=== PATIENT | male | born 1970 | race Two or more races ===

== ENCOUNTER → 2021-06-30 08:26 | Outpatient (BNVA) | payer MEDICAID, SELFPAY | PROVIDERS: PCP Internal Medicine; Referring Provider Internal Medicine; Visit Provider Physician Assistant | DX: Z12.11 Encounter for screening for malignant neoplasm of colon (principal); K21.9 Gastro-esophageal reflux disease without esophagitis | CPT/HCPCS: 99202 ==

== ENCOUNTER 2023-05-15 09:30 | Outpatient (REF) | payer MEDICAID, SELFPAY ==
[2023-05-15 14:37] LABS: MANUAL DIFF FLAG NO
[2023-05-15 14:43] LABS: Basophils Percent Auto 0.7 % (0-2); Eosinophils Absolute Auto 0.1 X10*3/uL (0.0-0.4); Eosinophils Percent Auto 2.2 % (0-4); Hematocrit 44.7 % (42.0-52.0); Hemoglobin 14.1 g/dl (14.0-18.0); Imm Gran Abs Auto 0.02 X10*3/uL (0.00-0.03); Imm Gran Pct Auto 0.3 % (0.0-0.4); Lymphocytes Absolute Auto 1.3 X10*3/uL (1.2-4.9); Lymphocytes Percent Auto 21.7 % (20-40); Mean Corpuscular HGB Conc 31.5 g/dl (31.0-36.0); Mean Corpuscular Hemoglobin 25.5 pg (27.0-33.0); Mean Corpuscular Volume 80.8 fL (80.0-98.0); Monocytes Absolute Auto 0.5 X10*3/uL (0.1-1.2); Monocytes Percent Auto 8.7 % (2-11); Neutrophils Percent Auto 66.4 % (45-73); Platelet Count 203 X10*3/uL (160-400); Red Blood Count 5.53 X10*6/uL (4.60-5.80); Red Cell Distribution Width 13.7 % (11.0-16.0)
[2023-05-15 15:22] LABS: Erythrocyte Sedimentation Rate 7 MM/HR (0-15)
[2023-05-15 16:11] LABS: Alanine Aminotransferase 46 U/L (0-40); Albumin Level 4.5 g/dL (3.5-5.0); Alkaline Phosphatase 86 U/L (39-117); Anion Gap 12 (12-20); Aspartate Amino Transferase 23 U/L (5-37); Bilirubin Total 0.9 mg/dL (0.0-1.0); Blood Urea Nitrogen 9 mg/dL (9-16); C Reactive Protein 0.25 mg/dL (< or = 0.50); Calcium 9.7 mg/dL (8.4-10.2); Carbon Dioxide 27 mmol/L (22-29); Chloride 105 mmol/L (96-108); Cholesterol 121 mg/dL (<200); Estimated Glomerular Filt Rate > 60; Glucose Fasting 94 mg/dL (60-99); HDL Cholesterol 38 mg/dL (>40); LDL Cholesterol Calculated 64 mg/dL (<100); Potassium 4.1 mmol/L (3.3-5.1); Sodium 140 mmol/L (135-145); Total Protein 7.3 g/dL (6.5-8.0); Triglycerides 98 mg/dL (<150)
[2023-05-15 16:20] LABS: TSH reflex Free T4 1.25 uIU/mL (0.32-4.0)
[2023-05-15 19:27] LABS: Rheumatoid Factor < 13.0 IU/mL (<15.0)
[2023-05-15 19:41] LABS: Prostate Specific Antigen 3.95 ng/mL (<0.05-4.0)
[2023-05-16 08:29] LABS: ~HepC Num1 0.09 S/CO (0.00-0.79); ~Hepatitis C Antibody Nonreactive (Nonreactive)
[2023-05-17 00:53] LABS: Lyme Abs Screen <0.90 index
[2023-05-17 13:33] LABS: Anti DNA DS Antibody <1 IU/mL
[2023-05-17 15:14] LABS: Immunoglobulin G 1018 mg/dL (600-1640)
[2023-05-18 11:37] LABS: Cyclic Citrullinated Peptide <16 UNITS
[2023-05-18 15:57] LABS: HIV RNA PCR Qn Copies Not Detected Copies/mL; HIV RNA PCR Qn Log Copies Not Detected Log cps/mL
== END 2023-05-15 09:31 | disposition home or self-care (01) ==
LOC: HO.CHCLDS 09:30
PROVIDERS: Visit Provider Internal Medicine
DX: M25.40 Effusion, unspecified joint (principal); I10 Essential (primary) hypertension
CPT/HCPCS: 80053; 80061; 82784; 84153; 84443; 85025; 85652; 86140; 86200; 86225; 86431; 86617; 86618; 86803; 87536; 87900

== ENCOUNTER 2023-05-16 11:30 | Outpatient (REF) | payer MEDICAID, SELFPAY ==
[2023-05-16 17:53] LABS: CT PCR NOT DETECTED (Not Detect.); NG PCR NOT DETECTED (Not Detect.)
== END 2023-05-16 11:31 | disposition home or self-care (01) ==
LOC: HO.CHCLNP 11:30
PROVIDERS: Visit Provider Internal Medicine
DX: M25.40 Effusion, unspecified joint (principal); Z20.822 Contact with and (suspected) exposure to COVID-19
CPT/HCPCS: 0353U

== ENCOUNTER 2023-09-12 15:13 | Outpatient (AMB) | payer MEDICAID, SELFPAY ==
--- NOTE | 2023-09-12 15:30 | A.OFFVIS_ITS ---
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 The patient denies daytime urinary frequency, nocturia, hematuria, dysuria, or feeling of incomplete bladder emptying, or history of kidney stones. I have reviewed chart, PSA 05/09/23--3.95 ng/mL. I have discussed PSA is a blood test, prostate specific antigen and is an enzyme secreted by the prostate gland. Elevated PSA may be due to multiple conditions including prostate inflammatory condition, enlarged prostate or prostate cancer. Plan: Repeat PSA. [facility] Social History (Updated 06/30/21 @ 09:03 by Hilary Cueto PA-C) Household Members Other:: lives alone Alcohol intake: never Patient Tobacco Use Status: Never used Tobacco Current occupational status: unemployed Current occupation: Research Questionnaire AUA Symptom Score AUA Incomplete emptying - It does not feel like I empty my bladder all the way.: 1 - Less than 1 time in 5 Frequency - I have to go again less than two hours after I finish urinating.: 2 - Less than half the time Intermittency - I stop and start again several times when I urinate.: 0 - Not at all Urgency - It is hard to wait when I have to urinate.: 0 - Not at all Weak stream - I have a weak urinary stream.: 0 - Not at all Straining - I have to push or strain to begin urination.: 0 - Not at all Nocturia - I get up to urinate after I go to bed until the time I get up in the morning.: 1 time AUA Symptom Score: 4 Quality of life due to urinary symptoms: If you were to spend the rest of your life with your urinary condition the way it is now, how would you feel about that?: Mostly Satisfied Source: Maurizio WHEAT, Liberty BACA Jr, O'Prosper MP, et al, and the Measurement Committee of the [place] [employer]. The [place] [employer] symptom index for benign prostatic hyperplasia. J Urol. 1992; 148: 4979-6777. Copyright 1992 [place] [employer] Review of Systems Const All systems reviewed & are unremarkable except as noted in HPI and below Reports no additional complaints Eyes Reports no additional complaints ENT Reports no additional complaints Card Denies dyspnea Resp Denies cough and Denies dyspnea GI Reports no additional complaints Musc Reports no additional complaints Skin/Breast Denies rash and Denies unusual bruising Neuro Reports no additional complaints Psych Reports no additional complaints Endo Reports no additional complaints Hakeem/Lymph Reports no additional complaints Aller/Immun Reports no additional complaints Physical Exam Const General: healthy appearing, no acute distress and well developed Orientation/consciousness: patient oriented x3 HEENT Head: Yes normocephalic and Yes atraumatic Eyes Conjunctivae: conjunctivae normal Neck Neck: Yes normal visual inspection Chest Chest palpation & inspection: normal inspection of the chest Resp Effort & Inspection: normal respiratory effort Cardio Rate: regular rate GI Inspection: Yes normal to inspection Palpation (GI): Soft to palpation Skin General skin exam: no rashes or lesions noted Neuro General: patient oriented x3 Extrem General: No pedal edema Psych Appearance: grossly normal Affect: normal affect Results AMB Urinalysis, Automated UA Leukoctes 0 Re/uL Last Edit by ROMINA Burk on 09/12/23 15:58 UA Nitrite Negative Last Edit by ROMINA Burk on 09/12/23 15:58 UA Urobilinogen 0.2 mg/dL Last Edit by ROMINA Burk on 09/12/23 15:5 8 UA Protein 0 mg/dL Last Edit by ROMINA Burk on 09/12/23 15:58 UA pH 6.5 Last Edit by ROMINA Burk on 09/12/23 15:58 UA Blood 0 Kenny/uL Last Edit by ROMINA Burk on 09/12/23 15:58 UA Specific [place] 1.005 Last Edit by ROMINA Burk on 09/12/23 15: 58 UA Ketone Negative Last Edit by ROMINA Burk on 09/12/23 15:58 UA Bilirubin 0 mg/dL Last Edit by ROMINA Burk on 09/12/23 15:58 UA Glucose 0 mg/dL Last Edit by ROMINA Burk on 09/12/23 15:58 Results Reviewed Results Reviewed: Laboratory Last Values Urine pH (Auto) 6.5 09/12/23 15:57 Specific [place] (Auto) 1.005 09/12/23 15:57 Urine Protein (Auto) 0 mg/dL 09/12/23 15:57 Glucose (UA)(Auto) 0 mg/dL 09/12/23 15:57 Urine Ketones (Auto) Negative 09/12/23 15:57 Urine Blood (Auto) 0 Kenny/uL 09/12/23 15:57 Urine Nitrite (Auto) Negative 09/12/23 15:57 Urine Bilirubin (Auto) 0 mg/dL 09/12/23 15:57 Urine Urobilinogen (Auto) 0.2 mg/dL 09/12/23 15:57 Leukocyte Esterase (Auto) 0 Re/uL 09/12/23 15:57 Assessment & Plan Assessment & Plan (1) Elevated PSA: Code(s): R97.20 - Elevated prostate specific antigen [PSA] Plan Repeat PSA. Orders: Orders AMB Urinalysis Automated 09/12/23 Z13.9 - Encounter for screening, unspecified PSA,Total (Free>4and<10) 1 Month R97.20 - Elevated prostate specific antigen [PSA] Patient Instructions: The patient had an opportunity to ask questions regarding treatment plan. All questions were answered. Laboratory studies and physical exam results were discussed and reviewed in detail. No major barriers to understanding were identified. The patient expressed understanding and agreement with the above treatment plan. The patient is aware they should contact our office by phone for worsening of their current condition or the appearance of new symptoms. Compliance is encouraged with any medications and followup testing that is ordered. It is a privilege to be allowed the opportunity to participate in the urologic care of your patient. If you have any questions or concerns regarding treatment for the above conditions please do not hesitate to contact me. The office telephone contact is [phone]. This note is constructed in part using voice recognition software. While every effort has been made to ensure accuracy patternmaker hand errors may have been included. Yours sincerely, Mariana Bazan MD Quality Reporting (2019) Benign Prostatic Hyperplasia ([facility] 771) AUA symptom score: 4 Quality of life due to urinary symptoms: If you were to spend the rest of your life with your urinary condition the way it is now, how would you feel about that?: Mostly Satisfied Coding Level of Care Code New Pt Level 3 (65761) Diagnoses Elevated PSA R97.20
== END 2023-09-12 16:02 | disposition home or self-care (01) ==
PROVIDERS: PCP Internal Medicine; Visit Provider Urology
DX: R97.20 Elevated prostate specific antigen [PSA] (principal)
CPT/HCPCS: 99203

== ENCOUNTER → 2023-09-12 15:13 | Outpatient (BNVA) | payer MEDICAID, SELFPAY | PROVIDERS: PCP Internal Medicine; Visit Provider Urology | DX: R97.20 Elevated prostate specific antigen [PSA] (principal) | CPT/HCPCS: 81003; 99202 ==

== ENCOUNTER 2023-10-15 10:23 | Outpatient (REF) | payer MEDICAID, SELFPAY ==
[2023-10-15 15:59] LABS: PSA,Total (Free>4and<10) 2.22 ng/mL (0.00-4.00)
== END 2023-10-15 10:24 | disposition home or self-care (01) ==
LOC: HO.CHCLDS 10:23
PROVIDERS: Visit Provider Urology
DX: Z12.5 Encounter for screening for malignant neoplasm of prostate (principal); R97.20 Elevated prostate specific antigen [PSA]
CPT/HCPCS: 36415; 84153

== ENCOUNTER 2023-10-24 14:02 | Outpatient (AMB) | payer MEDICAID, SELFPAY ==
--- NOTE | 2023-10-24 14:37 | A.OFFVIS_ITS ---
Intake Intake Visit Reasons: 6 weeks f/up/PSA Intake Note: Patient presents today for a follow-up and PSA results: Total PSA 2.22 ng/ml, 10/15/2023. 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 Accompanied by: Self / Same As Patient Allergies house dust Allergy (Mild, Verified 11/15/23 13:53) unknown pollen extracts Allergy (Mild, Verified 11/15/23 13:53) unknown Medication List - Last Reviewed 10/24/23 by ROMINA Burk albuterol sulfate 90 mcg/actuation (ProAir HFA) 2 puffs inhalation Q4-6H PRN atenolol 50 mg PO DAILY atorvastatin 10 mg PO DAILY bisacodyl (Dulcolax (bisacodyl)) 10 mg (2 x 5 mg) PO ONCE 1 day fexofenadine (Tonia Allergy) 180 mg PO DAILY finasteride (Proscar) 5 mg PO DAILY 90 days fluticasone propionate 220 mcg/actuation (Flovent HFA) 1 puff inhalation BID hydrochlorothiazide 25 mg PO DAILY hydrochlorothiazide 12.5 mg PO DAILY lisinopril 10 mg PO DAILY montelukast 10 mg PO QPM omeprazole 20 mg PO QAM polyethylene glycol 3350 (Miralax) 238 grams PO ONCE 1 day HPI HPI Comments History of Present Illness Details Raul is a 53 year old male who is here for evaluation for PSA. He is here today with repeat PSA to discuss results. PSA was drawn on 10/15/2023--results 2.22 ng/mL. The patient states that his primary care physician started him on finasteride. He states he has noticed improvement in urinary flow since being on the finasteride and he gets up less at night. I will continue the finasteride prescription. Review of chart: PSA 05/09/23--3.95 ng/mL. 09/12/23-- prostate exam- enlarged, smoo th, no suspicious nodules palpated 10/24/23--Plan: Ultrasound retroperitoneum, prostate measurement requested. Telehealth to discuss ultrasound results. I will continue to prescribe the finasteride for now. Monitor PSA. Repeat in 6 months - FU post. [facility] Medical History Hypercholesteremia Joint swelling Hypertension Surgical History No pertinent past surgical history Family History Father No problems noted. Mother No problems noted. 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 All systems reviewed & are unremarkable except as noted in HPI and below Reports no additional complaints Eyes Reports no additional complaints ENT Reports no additional complaints Card Denies dyspnea Resp Denies cough and Denies dyspnea GI Reports no additional complaints Musc Reports no additional complaints Skin/Breast Denies rash and Denies unusual bruising Neuro Reports no additional complaints Psych Reports no additional complaints Endo Reports no additional complaints Hakeem/Lymph Reports no additional complaints Aller/Immun Reports no additional complaints Results AMB Urinalysis, Automated UA Leukoctes 70 Re/uL Last Edit by ROMINA Burk on 10/24/23 14:50 1+ Vanita David 10/24/23 14:50 UA Nitrite Negative Last Edit by ROMINA Burk on 10/24/23 14:50 UA Urobilinogen 0.2 mg/dL Last Edit by ROMINA Burk on 10/24/23 14:5 0 UA Protein 0 mg/dL Last Edit by ROMINA Burk on 10/24/23 14:50 UA pH 6.5 Last Edit by ROMINA Burk on 10/24/23 14:50 UA Blood 0 Kenny/uL Last Edit by ROMINA Burk on 10/24/23 14:50 UA Specific [place] 1.010 Last Edit by ROMINA Burk on 10/24/23 14: 50 UA Ketone Negative Last Edit by ROMINA Burk on 10/24/23 14:50 UA Bilirubin 0 mg/dL Last Edit by ROMINA Burk on 10/24/23 14:50 UA Glucose 0 mg/dL Last Edit by ROMINA Burk on 10/24/23 14:50 Results Reviewed Results Reviewed: Laboratory Last Values Urine pH (Auto) 6.5 10/24/23 14:48 Specific [place] (Auto) 1.010 10/24/23 14:48 Urine Protein (Auto) 0 mg/dL 10/24/23 14:48 Glucose (UA)(Auto) 0 mg/dL 10/24/23 14:48 Urine Ketones (Auto) Negative 10/24/23 14:48 Urine Blood (Auto) 0 Kenny/uL 10/24/23 14:48 Urine Nitrite (Auto) Negative 10/24/23 14:48 Urine Bilirubin (Auto) 0 mg/dL 10/24/23 14:48 Urine Urobilinogen (Auto) 0.2 mg/dL 10/24/23 14:48 Leukocyte Esterase (Auto) 70 Re/uL 10/24/23 14:48 Assessment & Plan Assessment & Plan (1) BPH loc w urin obs/LUTS: Code(s): N40.1 - Benign prostatic hyperplasia with lower urinary tract symptoms (2) Elevated PSA: Code(s): R97.20 - Elevated prostate specific antigen [PSA] Plan Ultrasound retroperitoneum, prostate measurement requested. Telehealth to discuss ultrasound results. I will continue to prescribe the finasteride for now. Monitor PSA. Repeat in 6 months - FU post. Orders: Orders AMB Urinalysis Automated 10/24/23 Z13.9 - Encounter for screening, unspecified US retroperitoneal comp 1 Month N40.1 - Benign prostatic hyperplasia with lower urinary tract symptoms, R97.20 - Elevated prostate specific antigen [PSA] PSA,Total (Free>4and<10) 6 Months N40.1 - Benign prostatic hyperplasia with lower urinary tract symptoms, R97.20 - Elevated prostate specific antigen [PSA] Medications: New finasteride (Proscar) 5 mg PO DAILY 90 tabs 3RF 90 days C61 - Malignant neoplasm of prostate atorvastatin 10 mg PO DAILY Patient Instructions: The patient had an opportunity to ask questions regarding treatment plan. All questions were answered. Laboratory studies and physical exam results were discussed and reviewed in detail. No major barriers to understanding were identified. The patient expressed understanding and agreement with the above treatment plan. The patient is aware they should contact our office by phone for worsening of their current condition or the appearance of new symptoms. Compliance is encouraged with any medications and followup testing that is ordered. It is a privilege to be allowed the opportunity to participate in the urologic care of your patient. If you have any questions or concerns regarding treatment for the above conditions please do not hesitate to contact me. The office telephone contact is [phone]. This note is constructed in part using voice recognition software. While every effort has been made to ensure accuracy telephone sales agent errors may have been included. Yours sincerely, Mariana Bazan MD Coding Level of Care Code Est Pt Level 4 (69644) Diagnoses BPH loc w urin obs/LUTS N40.1 Elevated PSA R97.20
== END 2023-10-24 15:16 | disposition home or self-care (01) ==
PROVIDERS: PCP Internal Medicine; Visit Provider Urology
DX: N40.1 Benign prostatic hyperplasia with lower urinary tract symptoms (principal); R97.20 Elevated prostate specific antigen [PSA]
CPT/HCPCS: 99214

== ENCOUNTER → 2023-10-24 14:02 | Outpatient (BNVA) | payer MEDICAID, SELFPAY | PROVIDERS: PCP Internal Medicine; Visit Provider Urology | DX: N40.1 Benign prostatic hyperplasia with lower urinary tract symptoms (principal); R97.20 Elevated prostate specific antigen [PSA] | CPT/HCPCS: 81003; 99212 ==

== ENCOUNTER 2023-11-13 15:13 | Outpatient (REF) | payer MEDICAID, SELFPAY ==
--- NOTE | ~2023-11-13 | US_ITS ---
EXAMINATION: US RETROPERITONEAL COMPLETE (RENAL) CLINICAL INFORMATION: Benign prostatic hyperplasia with lower urinary tract symptoms. Please measure prostate. COMPARISON: None available. TECHNIQUE: Real-time imaging of the kidneys and bladder. FINDINGS: RIGHT KIDNEY: 12.5 x 6.5 x 6.6 cm (SAG x AP x TRV). The kidney is normal in size, contour, and echogenicity. Renal cortical thickness is normal. No renal calculi or hydronephrosis. 1.9 cm septated and calcified cyst in the upper pole. LEFT KIDNEY: 13.2 x 6.8 x 6.0 cm (SAG x AP x TRV). The kidney is normal in size, contour, and echogenicity. Renal cortical thickness is normal. No calculi or focal parenchymal lesions. No hydronephrosis. BLADDER: Well distended and normal. Bilateral ureteral jets are demonstrated. Prevoid bladder volume is 703 mL. Postvoid bladder volume is 23 mL. Prostate volume 22 mL. US/US retroperitoneal comp IMPRESSION: 1.9 cm cyst with calcified septations in the upper pole of the right kidney. Further evaluation with CT or MR abdomen without and with contrast renal mass protocol is recommended for further evaluation. Large capacity bladder of 700 mL. No hydronephrosis. Prostate volume 22 mL.
== END 2023-11-13 15:14 | disposition home or self-care (01) ==
LOC: HO.HMGCX 15:13
PROVIDERS: PCP Internal Medicine; Visit Provider Urology
DX: N40.1 Benign prostatic hyperplasia with lower urinary tract symptoms (principal); R97.20 Elevated prostate specific antigen [PSA]
CPT/HCPCS: 76770

== ENCOUNTER 2023-11-15 13:46 | Outpatient (AMB) | payer MEDICAID, SELFPAY ==
--- NOTE | 2023-11-15 13:49 | MHC.OFFVIS ---
Intake Vital Signs 11/15/23 13:53 Height 5 ft 11 in Weight 235 lb 14.314 oz BMI 32.9 BP 138/75 Blood Pressure Location Lt brachial Position Sitting Pulse 75 Intake Visit Reasons: Colonoscopy Screening Intake Note: Raul presents in the office as a new patient colonoscopy screening. CC: He states that he is not having any concerns at this time he just is over due. 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 Allergies house dust Allergy (Mild, Verified 11/15/23 13:53) unknown pollen extracts Allergy (Mild, Verified 11/15/23 13:53) unknown Medication List - Last Reconciled 11/15/23 by Hilary Cueto PA-C albuterol sulfate 90 mcg/actuation (ProAir HFA) 2 puffs inhalation Q4-6H PRN atenolol 50 mg PO DAILY atorvastatin 10 mg PO DAILY fexofenadine (Tonia Allergy) 180 mg PO DAILY finasteride (Proscar) 5 mg PO DAILY 90 days fluticasone propionate 220 mcg/actuation (Flovent HFA) 1 puff inhalation BID hydrochlorothiazide 12.5 mg PO DAILY lisinopril 10 mg PO DAILY montelukast 10 mg PO QPM omeprazole 20 mg PO QAM HPI HPI Comments History of Present Illness Details 53-year-old male for screening colonoscopy-seen by me back in 2020 which time was scheduled for an EGD for Mattson's surveillance and colonoscopy Had had difficulty with transportation and had to cancel procedure He has persistent acid reflux is taking omeprazole however on any Will to identify anything specific to assist symptoms His bowels normal he does not have any issue there He has no nausea, vomiting hematemesis, hematochezia fever chills PFSH Medical History Hypercholesteremia Joint swelling Hypertension Surgical History No pertinent past surgical history Family History Father No problems noted. Mother No problems noted. 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 All systems reviewed & are unremarkable except as noted in HPI and below Card Denies chest pain and Denies dyspnea Resp Denies dyspnea GI Denies abdominal pain, Reports heartburn, Denies nausea and Denies vomiting Physical Exam Vital Signs: Last Vital Signs Pulse 75 11/15/23 13:53 BP 138/75 11/15/23 13:53 BMI result Body Mass Index 32.9 Const General: cooperative, healthy appearing, comfortable and no acute distress Orientation/consciousness: patient oriented x3 Limitations: no limitations Eyes Sclerae: sclerae normal Resp Effort & Inspection: normal respiratory effort and able to speak in complete sentences Auscultation: clear to auscultation bilaterally, no rales, no rhonchi and no wheezes Cardio Rate: regular rate Rhythm: regular rhythm Heart sounds: S1 normal heart sound present and S2 normal heart sound present GI Palpation (GI): Soft to palpation and nontender Auscultation: normal bowel sounds Skin General skin exam: no rashes or lesions noted Neuro General: patient oriented x3 Extrem General: Yes full ROM Psych Appearance: grossly normal and well kempt Mental Status: mental status grossly normal Speech and movement: Clear speech present Affect: Labile affect present Attitude: cooperative Thought process: Normal thought process present Thought content: Normal thought content present Results Reviewed Results Reviewed: US/US retroperitoneal comp IMPRESSION: 1.9 cm cyst with calcified septations in the upper pole of the right kidney. Further evaluation with CT or MR abdomen without and with contrast renal mass protocol is recommended for further evaluation. Large capacity bladder of 700 mL. No hydronephrosis. Prostate volume 22 mL. Assessment & Plan Assessment & Plan (1) Acid reflux: Comment: EGD for Mattson's surveillance Code(s): K21.9 - Gastro-esophageal reflux disease without esophagitis Plan: Reflux precautions reviewed (2) Encounter for screening colonoscopy: Comment: Screening colonoscopy-reviewed indications, need for escort rare risks and prep Code(s): Z12.11 - Encounter for screening for malignant neoplasm of colon Plan: Screening colonoscopy MiraLax Gatorade prep Plan EGD/Colace MiraLax Gatorade Orders: Orders EGD/Lindsay Combo - GI Use Only Today K21.9 - Gastro-esophageal reflux disease without esophagitis, Z12.11 - Encounter for screening for malignant neoplasm of colon Medications: New bisacodyl (Dulcolax (bisacodyl)) Day before procedure @ 12 noon Take 4 tablets by mouth followed by large glass of water 20 mg (4 x 5 mg) PO ONCE 1 day PRN 4 tabs 0RF colonoscopy prep Z12.11 - Encounter for screening for malignant neoplasm of colon polyethylene glycol 3350 (Miralax) Take as directed by mouth the day before your procedure. 238 grams PO ONCE 1 day PRN 238 grams 0RF laxative effect Discontinued bisacodyl (Dulcolax (bisacodyl)) Take 2 tablets by mouth at 12:00pm the day before your procedure. Discontinued Reason: Patient no longer taking 10 mg (2 x 5 mg) PO ONCE 1 day 2 tabs 0RF colonoscopy prep Z12.11 - Encounter for screening for malignant neoplasm of colon polyethylene glycol 3350 (Miralax) Take as directed by mouth the day before your procedure. Discontinued Reason: Patient no longer taking 238 grams PO ONCE 1 day 238 grams 0RF Coding Level of Care Code Est Pt Level 3 (44742) Diagnoses Acid reflux K21.9 Encounter for screening colonoscopy Z12.11 Time Spent (min) 25
[2023-11-15 13:53] VITALS: BP 138/75; PULSE 75; BMI 32.9
== END 2023-11-15 14:28 | disposition home or self-care (01) ==
PROVIDERS: PCP Internal Medicine; Referring Provider Internal Medicine; Visit Provider Physician Assistant
DX: K21.9 Gastro-esophageal reflux disease without esophagitis (principal); Z12.11 Encounter for screening for malignant neoplasm of colon
CPT/HCPCS: 99213

== ENCOUNTER → 2023-11-15 13:46 | Outpatient (BNVA) | payer MEDICAID, SELFPAY | PROVIDERS: PCP Internal Medicine; Referring Provider Internal Medicine; Visit Provider Physician Assistant | DX: Z12.11 Encounter for screening for malignant neoplasm of colon (principal); K21.9 Gastro-esophageal reflux disease without esophagitis | CPT/HCPCS: 99212 ==

== ENCOUNTER 2023-11-19 08:58 | Outpatient (REF) | payer MEDICAID, SELFPAY ==
[2023-11-19 14:26] LABS: MANUAL DIFF FLAG NO
[2023-11-19 14:35] LABS: Basophils Percent Auto 0.3 % (0-2); Eosinophils Absolute Auto 0.1 X10*3/uL (0.0-0.4); Eosinophils Percent Auto 2.1 % (0-4); Hematocrit 45.4 % (42.0-52.0); Hemoglobin 14.5 g/dl (14.0-18.0); Imm Gran Abs Auto 0.03 X10*3/uL (0.00-0.03); Imm Gran Pct Auto 0.5 % (0.0-0.4); Lymphocytes Absolute Auto 1.5 X10*3/uL (1.2-4.9); Lymphocytes Percent Auto 22.6 % (20-40); Mean Corpuscular HGB Conc 31.9 g/dl (31.0-36.0); Mean Corpuscular Hemoglobin 25.8 pg (27.0-33.0); Mean Corpuscular Volume 80.8 fL (80.0-98.0); Mean Platelet Volume 9.9 fL (9.4-12.4); Monocytes Absolute Auto 0.7 X10*3/uL (0.1-1.2); Monocytes Percent Auto 10.3 % (2-11); Neutrophils Absolute Auto 4.2 x10*3/uL (2.0-8.3); Neutrophils Percent Auto 64.2 % (45-73); Platelet Count 213 X10*3/uL (160-400); Red Blood Count 5.62 X10*6/uL (4.60-5.80); Red Cell Distribution Width 13.7 % (11.0-16.0); White Blood Count 6.6 X10*3/uL (4.8-10.8)
[2023-11-19 15:32] LABS: Alanine Aminotransferase 38 U/L (0-40); Albumin Level 4.4 g/dL (3.5-5.0); Alkaline Phosphatase 99 U/L (39-117); Anion Gap 14 (12-20); Aspartate Amino Transferase 20 U/L (5-37); Blood Urea Nitrogen 15 mg/dL (9-16); Calcium 9.8 mg/dL (8.4-10.2); Carbon Dioxide 30 mmol/L (22-29); Chloride 100 mmol/L (96-108); Cholesterol 137 mg/dL (<200); Estimated Glomerular Filt Rate > 60; Glucose Random 61 mg/dL (60-115); HDL Cholesterol 34 mg/dL (>40); LDL Cholesterol Calculated 70 mg/dL (<100); Potassium 4.4 mmol/L (3.3-5.1); Sodium 140 mmol/L (135-145); Total Protein 7.4 g/dL (6.5-8.0); Triglycerides 166 mg/dL (<150)
== END 2023-11-19 08:59 | disposition home or self-care (01) ==
LOC: HO.CHCLDS 08:58
PROVIDERS: Visit Provider Internal Medicine
DX: I10 Essential (primary) hypertension (principal); E78.2 Mixed hyperlipidemia
CPT/HCPCS: 36415; 80053; 80061; 85025

== ENCOUNTER 2024-01-21 13:27 | Outpatient (AMB) | payer MEDICAID, SELFPAY ==
--- NOTE | 2024-01-21 13:29 | A.OFFVIS_ITS ---
Intake Visit Reasons: 3m/US Intake Note: Patient presents today for a follow-up and US results: Meds- Finasteride Allergies to Antibiotic- No Known Allergies Blood Thinner- None It Portfolio Manager Required: No Accompanied by: Self / Same As Patient Allergies house dust Allergy (Mild, Verified 01/21/24 13:30) unknown pollen extracts Allergy (Mild, Verified 01/21/24 13:30) unknown Medication List - Last Reconciled 01/21/24 by Mariana Bazan MD albuterol sulfate 90 mcg/actuation (ProAir HFA) 2 puffs inhalation Q4-6H PRN atenolol 50 mg PO DAILY atorvastatin 10 mg PO DAILY bisacodyl (Dulcolax (bisacodyl)) 20 mg (4 x 5 mg) PO ONCE PRN 1 day fexofenadine (Tonia Allergy) 180 mg PO DAILY finasteride (Proscar) 5 mg PO DAILY 90 days fluticasone propionate 220 mcg/actuation (Flovent HFA) 1 puff inhalation BID hydrochlorothiazide 12.5 mg PO DAILY lisinopril 10 mg PO DAILY montelukast 10 mg PO QPM omeprazole 20 mg PO QAM polyethylene glycol 3350 (Miralax) 238 grams PO ONCE PRN 1 day HPI Comments Details: 01/21/2024--Raul is evaluated via tele video. He was last seen in the office 10/24/2023 for elevated PSA and enlarged prostate. He is prescribed finasteride. He was sent for renal ultrasound. He states that he is urinating well denies dysuria or gross hematuria. I have reviewed the kidney ultrasound results there is a 1.9 cm complex cyst in the right kidney. I have discussed follow-up evaluation with CT abdomen renal protocol in 6 months. At time of follow-up will also recheck PSA. Review of chart: 10/24/2023--Raul is a 53 year old male who is here for evaluation for PSA. He is here today with repeat PSA to discuss results.PSA was drawn on 10/15/2023--results 2.22 ng/mL. The patient states that his primary care physician started him on finasteride. He states he has noticed improvement in urinary flow since being on the finasteride and he gets up less at night. I will continue the finasteride prescription. Ultrasound retroperitoneum, prostate measurement requested. Telehealth to discuss ultrasound results. Monitor PSA. 05/09/23--PSA---3.95 ng/mL. 09/12/23-- prostate exam- enlarged, smooth, no suspicious nodules palpated 01/21/24--Plan: CT abdomen renal mass protocol in 6 months, monitor PSA. [facility] Medical History Hypercholesteremia Joint swelling Hypertension Surgical History No pertinent past surgical history Family History Father No problems noted. Mother No problems noted. 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 All systems reviewed & are unremarkable except as noted in HPI and below Reports no additional complaints Eyes Reports no additional complaints ENT Reports no additional complaints Card Reports no additional complaints Resp Reports no additional complaints GI Reports no additional complaints Reports as per HPI Musc Reports no additional complaints Skin/Breast Reports system reviewed and no additional complaints, except as documented Neuro Reports no additional complaints Psych Reports no additional complaints Endo Reports no additional complaints Hakeem/Lymph Reports no additional complaints Aller/Immun Reports no additional complaints Physical Exam Const General: healthy appearing, no acute distress and well developed Orientation/consciousness: patient oriented x3 HEENT Head: Yes normocephalic and Yes atraumatic Eyes Conjunctivae: conjunctivae normal Resp Effort & Inspection: normal respiratory effort Neuro General: patient oriented x3 Psych Appearance: grossly normal Affect: normal affect Telehealth Telehealth Telehealth Platform: [facility] Location of provider rendering services: practice address Location of patient: address on file Patient Identification confirmed using: Name, : Yes Telehealth method: video Patient verbally consented to treatment: Yes Patient verbally consented to billing insurance company: Yes Patient informed of any privacy concerns related to visit: Yes Assessment & Plan Assessment & Plan (1) Elevated PSA: Code(s): R97.20 - Elevated prostate specific antigen [PSA] Category: Medical (2) BPH loc w urin obs/LUTS: Code(s): N40.1 - Benign prostatic hyperplasia with lower urinary tract symptoms Category: Medical (3) Complex renal cyst: Code(s): N28.1 - Cyst of kidney, acquired Category: Medical Plan CT abdomen renal mass protocol in 6 months, BUN and creatinine prior due to IV contrast, monitor PSA. Orders: Orders CT abdomen wo/w IV con 5 Months N28.1 - Cyst of kidney, acquired Blood Urea Nitrogen 3 Months N28.1 - Cyst of kidney, acquired Creatinine 3 Months N28.1 - Cyst of kidney, acquired Patient Instructions: The patient had an opportunity to ask questions regarding treatment plan. The patient expressed understanding and agreement with the above treatment plan. The patient is aware they should contact our office by phone for worsening of their current condition or the appearance of new symptoms. Compliance is encouraged with any medications and followup testing that is ordered. It is a privilege to be allowed the opportunity to participate in the urologic care of your patient. If you have any questions or concerns regarding treatment for the above conditions please do not hesitate to contact me. The office telephone contact is [phone]. This note is constructed in part using voice recognition software. While every effort has been made to ensure accuracy training designer errors may have been included. Yours sincerely, Mariana Bazan MD Coding Level of Care Code Est Pt Level 4 (05861) Complex EM visit Add On G2211 Diagnoses Elevated PSA R97.20 BPH loc w urin obs/LUTS N40.1 Complex renal cyst N28.1
== END 2024-01-21 14:47 | disposition home or self-care (01) ==
LOC: HO.HUSH 13:27
PROVIDERS: PCP Internal Medicine; Referring Provider Internal Medicine; Visit Provider Urology
DX: R97.20 Elevated prostate specific antigen [PSA] (principal); N40.1 Benign prostatic hyperplasia with lower urinary tract symptoms; N28.1 Cyst of kidney, acquired
CPT/HCPCS: 99214; G2211

== ENCOUNTER → 2024-01-21 13:27 | Outpatient (BNVA) | payer MEDICAID, SELFPAY | PROVIDERS: PCP Internal Medicine; Visit Provider Urology | DX: N40.1 Benign prostatic hyperplasia with lower urinary tract symptoms (principal); N28.1 Cyst of kidney, acquired; R97.20 Elevated prostate specific antigen [PSA] | CPT/HCPCS: 99212 ==

== ENCOUNTER 2024-05-27 11:25 | Day surgery (SDC) | payer MEDICAID, SELFPAY ==
[2024-05-27 12:27] VITALS: BP 162/86; PULSE 82; RESP 20; TEMP 36.1; O2SAT 99; BMI 28.7
--- NOTE | 2024-05-27 12:35 | P.CONAN_ITS ---
Documented by User: Sera Batista NP 05/26/24 14:55 HPI - Anesthesia Eval Consult details Narrative: 53yo M for Upper Endoscopy and Colonoscopy PMFSH Active Problems Active Problems: All Active Problems Complex renal cyst (Acute) BPH loc w urin obs/LUTS (Acute) Elevated PSA (Acute) Acid reflux (Acute) Encounter for screening colonoscopy (Acute) Past Medical History Medical History Hypercholesteremia Joint swelling Hypertension Family History Family History Father No problems noted. Mother No problems noted. Surgical History Surgical History No pertinent past surgical history Social History Social History Household Members Other:: lives alone Alcohol intake: never Patient Tobacco Use Status: Never used Tobacco Have you been hit, kicked, punched, or otherwise hurt by someone within the past year? If so, by whom?: No Are you DNR?: No Advance Directives: No Advance Directives Information Provided: Yes Current occupational status: unemployed Current occupation: Research Meds Allergies Allergy/AdvReac Type Severity Reaction Status Date / Time house dust Allergy Mild unknown Verified 01/21/24 13:30 pollen extracts Allergy Mild unknown Verified 01/21/24 13:30 Home Medications ?Medication ?Instructions ?Recorded ?Confirmed ?Last Taken ?Type albuterol sulfate 90 mcg/actuation 2 puff inhalation Q4-6H PRN 06/30/21 01/21/24 Unknown History aerosol inhaler (ProAir HFA) atenolol 50 mg tablet 50 mg PO DAILY 06/30/21 01/21/24 Unknown History fexofenadine 180 mg tablet 180 mg PO DAILY 06/30/21 01/21/24 Unknown History (Tonia Allergy) fluticasone propionate 220 1 puff inhalation BID 06/30/21 01/21/24 Unknown History mcg/actuation HFA aerosol inhaler (Flovent HFA) hydrochlorothiazide 12.5 mg capsule 12.5 mg PO DAILY 06/30/21 01/21/24 Unknown History lisinopril 10 mg tablet 10 mg PO DAILY 06/30/21 01/21/24 Unknown History montelukast 10 mg tablet 10 mg PO QPM 06/30/21 01/21/24 Unknown History omeprazole 20 mg capsule,delayed 20 mg PO QAM 06/30/21 01/21/24 Unknown History release atorvastatin 10 mg tablet 10 mg PO DAILY 10/24/23 01/21/24 Unknown History Assessment and Plan Assessment Anesthesia Assessment: Chart Reviewed Documented by User: Pooja Jarrett DO 05/27/24 12:54 [facility] Past Medical History Medical History Hypercholesteremia Joint swelling Hypertension Family History Family History Father No problems noted. Mother No problems noted. Family history of problems with anesthesia: No Surgical History Surgical History No pertinent past surgical history History of Problems with Anesthesia: No (never had surgery before) Social History Social History Household Members Other:: lives alone Alcohol intake: never Patient Tobacco Use Status: Never used Tobacco Have you been hit, kicked, punched, or otherwise hurt by someone within the past year? If so, by whom?: No Are you DNR?: No Advance Directives: No Advance Directives Information Provided: Yes Current occupational status: unemployed Current occupation: Research Meds Allergies Allergy/AdvReac Type Severity Reaction Status Date / Time house dust Allergy Mild unknown Verified 01/21/24 13:30 pollen extracts Allergy Mild unknown Verified 01/21/24 13:30 Home Medications ?Medication ?Instructions ?Recorded ?Confirmed ?Last Taken ?Type albuterol sulfate 90 mcg/actuation 2 puff inhalation Q4-6H PRN 06/30/21 01/21/24 Unknown History aerosol inhaler (ProAir HFA) atenolol 50 mg tablet 50 mg PO DAILY 06/30/21 01/21/24 Unknown History fexofenadine 180 mg tablet 180 mg PO DAILY 06/30/21 01/21/24 Unknown History (Tonia Allergy) fluticasone propionate 220 1 puff inhalation BID 06/30/21 01/21/24 Unknown History mcg/actuation HFA aerosol inhaler (Flovent HFA) hydrochlorothiazide 12.5 mg capsule 12.5 mg PO DAILY 06/30/21 01/21/24 Unknown History lisinopril 10 mg tablet 10 mg PO DAILY 06/30/21 01/21/24 Unknown History montelukast 10 mg tablet 10 mg PO QPM 06/30/21 01/21/24 Unknown History omeprazole 20 mg capsule,delayed 20 mg PO QAM 06/30/21 01/21/24 Unknown History release atorvastatin 10 mg tablet 10 mg PO DAILY 10/24/23 01/21/24 Unknown History Exam Exam Date and Time: 05/27/24 1250 Height,Weight and Vital Signs: Height 5 ft 11 in Weight 93.349 kg Vital Signs Temperature 97.0 F 05/27/24 12:27 Pulse Rate 82 05/27/24 12:27 Respiratory Rate 20 05/27/24 12:27 Blood Pressure 162/86 H 05/27/24 12:27 Pulse Oximetry 99 05/27/24 12:27 Oxygen Delivery Method Room Air 05/27/24 12:27 Temperature 97.0 F 05/27/24 12:27 Pulse Rate 82 05/27/24 12:27 Respiratory Rate 20 05/27/24 12:27 Blood Pressure 162/86 H 05/27/24 12:27 Pulse Oximetry 99 05/27/24 12:27 Oxygen Delivery Method Room Air 05/27/24 12:27 Airway Mallampati Class: II TM Dist: >3cm Neck ROM: Full Loose/Missing/Broken Teeth: No (patient denies any loose or broken teeth) Heart: S1S2 Lungs: CTAB Assessment and Plan Assessment Anesthesia Assessment: Anesthesia Plan Discussed and Chart Reviewed Final Anesthetic Review Family History of Problems with Anesthesia: No History of Problems with Anesthesia: No (never had surgery before) NPO: Yes ASA Class: II Final Preanesthetic Review: No Changes in Pt Med Stat, Meds/Allgs Chart Reviewed, Consent Obtained/Reviewed and Anes Risks/Benef Reviewed Patient Risk: Low Procedure Risk: Low Anesthetic Plan Anesthetic Plan: MAC: and Agree w/ Assess. and Plan Disposition: Standard PACU
[2024-05-27] MEDS: Lactated Ringers 1,000 ML 100 ML IVCONT (12:41)
--- NOTE | 2024-05-27 13:01 | P.HPSUR_ITS ---
Pre-Procedural Eval Section A - 24 Hr Update-Section A only Date of Service: 05/27/24 Section B - Complete if H&P > 30 days Chief Complaint: Gastro-esophageal reflux disease without esophagit Relevant Family History (Specify if Yes): No Relevant Social History: None Present Medications: see Short Stay Collaborative assessment Medical History: Significant History (Hypercholesteremia Joint swelling Hyper tension) History of Previous Operations: No relevant previous surgery Allergies: Allergies Allergy/AdvReac Type Severity Reaction Status Date / Time house dust Allergy Mild unknown Verified 01/21/24 13:30 pollen extracts Allergy Mild unknown Verified 01/21/24 13:30 Review of Systems Sugical H&P ROS: Negative: Constitution, Cardiovascular, Respiratory, Neurological, Psychiatric, Hem-Onc, Allergic/Immunologic, Gastrointestinal, Genitourinary, Musculoskeletal, Integumentary, Endocrine and Eyes/Ears/Nose/Throat Exam Surgical H&P Exam: Normal: HEENT, Normal: Heart, Normal: Lungs, Normal: Extremities, Normal: Abdomen, Normal: Skin and Normal: Neurological Plan Diagnosis/Plan: Unchanged I have reviewed the history and physical and performed a pertinent physical examination on my patient. No changes have occurred unless specified. colon screening Time Spent With Patient Time: Total time managing care of this patient today ____ minutes.
--- NOTE | 2024-05-27 13:52 | HO.OPN-COLON ---
Colonoscopy Operative Note Operative Note Date of Service: 05/27/24 Narrative: Operative Information Procedure Description: EGD, Colonoscopy Indication: screening, GERD Anesthesia: MAC FLEXIBLE TRANSORAL UPPER GASTROINTESTINAL ENDOSCOPY AND COLONOSCOPY PROCEDURE NOTE UPPER ENDOSCOPY Consent: Indications for the procedure and potential complications of bleeding, perforation, reaction to medications and missed diagnosis were discussed with the patient and informed consent was obtained. Instrument: Olympus GIF H 190 J mid size upper endoscope Monitoring: Vital signs and clinical assessment, continuous EKG monitoring, Pulse oximetry, Carbon Dioxide monitoring and blood pressure monitoring were done throughout the procedure. Procedure: The patient was placed in the left lateral decubitis position and pre-procedure medications were administered and a bite block was placed. The endoscope was inserted into the mouth and advanced under direct vision to the third part of duodenum. A careful inspection was made as the upper endoscope was withdrawn including a retroflexed examination of the proximal stomach; Findings and interventions are described below. Findings: Larynx:normal Esophagus: GE junction at 40 cm, diaphragm hiatus at 40 cm, normal mucosa --bx taken from distal esophagus Stomach: Patchy erythema and slight atrophy. Biopsies were obtained. Grade 2 flap valve on retroflexed examination of the cardia. small fundic gland polyp 3-5 mm removed with cold forceps Duodenum: Normal bulb and descending duodenum, Intervention: Biopsies as noted above, COLONOSCOPY Instrument: Olympus variable stiffness adult scope 190L Colonoscopy Monitoring: Vital signs and clinical assessment, continuous EKG monitoring, Pulse oximetry, Carbon Dioxide monitoring and blood pressure monitoring were done throughout the procedure. Colon withdrawal time was 12 minutes. Procedure: The patient was placed in the left lateral decubitis position and pre-procedure medications were administered. After a digital rectal examination of the ano-rectum, the video colonoscope was inserted into the rectum and advanced through the colon to the cecum/TI. The colonoscope was slowly withdrawn in a retrograde panoramic fashion and the colon mucosa was carefully examined including a retroflexed view of the rectum. Findings and interventions are described below. Procedure Difficulty:moderate Findings: Terminal Ileum- few scattered erosions, bx taken Cecum:normal Ascending Colon: normal, random bx taken Transverse Colon -normal Descending Colon:normal Sigmoid Colon: moderate severe diverticulosis, 4-6 mm sessile polyp removed with cold snare Rectum: Retroflexion with small internal hemorrhoids, grade I, 6-7 mm sessile polyp removed with cold snare Anorectum - normal Colon preparation: [place] Bowel Preparation Scale Right colon; 2 Transverse colon: 3 Left colon; 3 (0 = Unprepared colon segment with mucosa not seen due to solid stool that cannot be cleared. 1 = Portion of mucosa of the colon segment seen, but other areas of the colon segment not well seen due to staining, residual stool and/or opaque liquid. 2 = Minor amount of residual staining, small fragments of stool and/or opaque liquid, but mucosa of colon segment seen well. 3 = Entire mucosa of colon segment seen well with no residual staining, small fragments of stool or opaque liquid) Impression and Post Procedure Diagnosis: Endoscopy Findings: gastritis probable fundic gland polyp Colonoscopy Findings: diverticulosis colon polyps internal hemorrhoids erosive ileitis Plan: Await Pathology results Repeat Colonoscopy in 5 years if adenomatous polyps, 10 yrs if hyperplastic or earlier if clinically indicated High fiber diet leaflet avoid straining at stool, epsom salts and sitz bath, anusol supps or cream check nsaid hx might need IBD w/u if any underlying sx Above findings were reviewed with the patient and relevant handouts were provided if indicated.
[2024-05-27 14:00] VITALS: BP 105/65; PULSE 82; RESP 16; TEMP 36.1; O2SAT 97
[2024-05-27 14:05] VITALS: BP 117/68; PULSE 87; RESP 14; O2SAT 98
[2024-05-27 14:10] VITALS: BP 121/84; PULSE 83; RESP 15; O2SAT 98
[2024-05-27 14:15] VITALS: BP 122/89; PULSE 74; RESP 14; O2SAT 98
[2024-05-27 14:29] VITALS: BP 150/81; PULSE 75; RESP 16; TEMP 36.1; O2SAT 99
== END 2024-05-27 14:38 | disposition home or self-care (01) ==
PROVIDERS: PCP Internal Medicine; Visit Provider Internal Medicine Gastroenterology
PROC: (CPT 45385; principal; 2024-05-27 14:30)
DX: Z12.11 Encounter for screening for malignant neoplasm of colon (principal); K63.5 Polyp of colon; K62.1 Rectal polyp; K57.30 Diverticulosis of large intestine without perforation or abscess without bleeding; K64.8 Other hemorrhoids; K52.89 Other specified noninfective gastroenteritis and colitis; K31.7 Polyp of stomach and duodenum; K21.9 Gastro-esophageal reflux disease without esophagitis; K29.70 Gastritis, unspecified, without bleeding; K44.9 Diaphragmatic hernia without obstruction or gangrene; I10 Essential (primary) hypertension; E78.00 Pure hypercholesterolemia, unspecified; J30.1 Allergic rhinitis due to pollen; Z79.51 Long term (current) use of inhaled steroids; Z79.899 Other long term (current) drug therapy; Z56.0 Unemployment, unspecified
CPT/HCPCS: 45385; 45380; 43239; 88305; 88313; 88342; J1596; J2704

== ENCOUNTER → 2024-05-27 11:25 | Outpatient (BNV) | payer MEDICAID, SELFPAY | PROVIDERS: PCP Internal Medicine; Visit Provider Internal Medicine Gastroenterology | DX: Z12.11 Encounter for screening for malignant neoplasm of colon (principal); K63.5 Polyp of colon; K63.3 Ulcer of intestine; K21.9 Gastro-esophageal reflux disease without esophagitis; K31.7 Polyp of stomach and duodenum | CPT/HCPCS: 43239; 45380; 45385 ==

== ENCOUNTER 2024-06-17 08:46 | Outpatient (REF) | payer MEDICAID, SELFPAY ==
[2024-06-17 14:23] LABS: MANUAL DIFF FLAG NO
[2024-06-17 14:31] LABS: Basophils Percent Auto 0.4 % (0-2); Eosinophils Absolute Auto 0.2 X10*3/uL (0.0-0.4); Eosinophils Percent Auto 3.8 % (0-4); Hematocrit 46.3 % (42.0-52.0); Hemoglobin 14.6 g/dl (14.0-18.0); Imm Gran Abs Auto 0.02 X10*3/uL (0.00-0.03); Imm Gran Pct Auto 0.4 % (0.0-0.4); Lymphocytes Absolute Auto 1.1 X10*3/uL (1.2-4.9); Mean Corpuscular HGB Conc 31.5 g/dl (31.0-36.0); Mean Corpuscular Hemoglobin 26.2 pg (27.0-33.0); Mean Corpuscular Volume 83.1 fL (80.0-98.0); Mean Platelet Volume 10.3 fL (9.4-12.4); Monocytes Absolute Auto 0.6 X10*3/uL (0.1-1.2); Monocytes Percent Auto 13.1 % (2-11); Neutrophils Absolute Auto 2.8 x10*3/uL (2.0-8.3); Neutrophils Percent Auto 59.3 % (45-73); Platelet Count 180 X10*3/uL (160-400); Red Blood Count 5.57 X10*6/uL (4.60-5.80); Red Cell Distribution Width 13.5 % (11.0-16.0); White Blood Count 4.7 X10*3/uL (4.8-10.8)
[2024-06-17 14:43] LABS: Alanine Aminotransferase 20 U/L (0-40); Albumin Level 4.3 g/dL (3.5-5.0); Alkaline Phosphatase 81 U/L (39-117); Anion Gap 13 (12-20); Aspartate Amino Transferase 17 U/L (5-37); Bilirubin Total 0.9 mg/dL (0.0-1.0); Blood Urea Nitrogen 10 mg/dL (9-16); Calcium 9.7 mg/dL (8.4-10.2); Carbon Dioxide 29 mmol/L (22-29); Chloride 104 mmol/L (96-108); Cholesterol 133 mg/dL (<200); Estimated Glomerular Filt Rate > 60; Glucose Random 108 mg/dL (60-115); HDL Cholesterol 44 mg/dL (>40); Iron 45 mcg/dL (45-160); LDL Cholesterol Calculated 65 mg/dL (<100); Percent Iron Saturation 18 % (15-50); Potassium 4.7 mmol/L (3.3-5.1); Sodium 141 mmol/L (135-145); Total Iron Binding Capacity 248 mcg/dL (228-428); Total Protein 7.2 g/dL (6.5-8.0); Triglycerides 120 mg/dL (<150); Unsaturated Iron Binding 203 ug/dL
[2024-06-17 15:03] LABS: PSA,Total (Free>4and<10) 1.43 ng/mL (0.00-4.00)
== END 2024-06-17 08:47 | disposition home or self-care (01) ==
LOC: HO.CHCLDS 08:46
PROVIDERS: Urology; Visit Provider Internal Medicine
DX: I10 Essential (primary) hypertension (principal); N40.1 Benign prostatic hyperplasia with lower urinary tract symptoms; R97.20 Elevated prostate specific antigen [PSA]; N28.1 Cyst of kidney, acquired
CPT/HCPCS: 36415; 80053; 80061; 83540; 84153; 85025

== ENCOUNTER 2024-06-23 15:17 | Outpatient (REF) | payer MEDICAID, SELFPAY ==
--- NOTE | ~2024-06-23 | CT_ITS ---
EXAMINATION: CT ABDOMEN WITH CONTRAST CLINICAL INFORMATION: Renal cyst. COMPARISON: Renal ultrasound 11/13/2023: 1.9 cm cyst with calcified septations in the upper pole of the right kidney. Further evaluation with CT or MR abdomen without and with contrast renal mass protocol is recommended for further evaluation. TECHNIQUE: Contiguous axial thin section helical images of the abdomen were performed following the administration of oral contrast and 85 mL of Omnipaque 300 intravenous contrast. The data set was reformatted in the coronal and sagittal planes and reviewed on an independent workstation. This CT examination was performed using dose optimization techniques as appropriate, variously including the following: *Automated exposure control *Adjustment of mA and/or kV according to patient size (this includes techniques or standardized protocols for targeted exams where dose is matched to indication/reason for exam; i.e. extremities or head) *Use of iterative reconstruction technique DLP: 548 mGy-cm. FINDINGS: LUNG BASES: The visualized lung bases are unremarkable. LIVER, GALLBLADDER, AND BILIARY TREE: The liver is normal in size, shape, and attenuation. No focal hepatic lesion or biliary ductal dilatation is present. The gallbladder is unremarkable with no evidence of radiopaque gallstones, gallbladder wall thickening, or obvious pericholecystic inflammatory changes. PANCREAS: Unremarkable. SPLEEN: Spleen is enlarged at 13.5 cm. ADRENAL GLANDS: Unremarkable. KIDNEYS AND URETERS: The kidneys are normal in size, shape, and attenuation. Multiple small nonobstructing calcifications are seen in both kidneys, right greater than left. No hydronephrosis, hydroureter, or ureteral calculi seen. At the lower pole the right kidney, there is a 1.4 cm water-attenuation benign Bosniak class I cyst. An upper pole cyst with a calcified septum is not seen on this exam to correlate with the finding on the ultrasound study. In the left kidney, there is an upper pole parapelvic cyst. All of these cysts are benign Bosniak class I and need no additional imaging or follow up. A worrisome renal mass is not seen. GASTROINTESTINAL TRACT: Visualized bowel unremarkable. The appendix is normal. ABDOMINAL WALL: No significant hernia is appreciated. Tiny periumbilical hernia containing only fat. LYMPH NODES: Normal. VASCULAR: Calcific atherosclerotic changes are present in the aorta without abdominal aortic aneurysm. OSSEOUS STRUCTURES: Unremarkable. CT/CT abdomen wo/w IV con IMPRESSION: 1. Bilateral nonobstructing renal calculi. 2. Mild splenomegaly. 3. A concerning renal mass is not present. Bilateral benign Bosniak class I cysts are present, which need no additional imaging or follow up. Correlate with the cyst with calcified septations in the upper pole of the right kidney is not seen. A follow-up renal ultrasound in October 2024 is recommended Electronically signed by: Angel Leiva MD 08/21/2024 10:46 AM [facility]
[2024-06-23] MEDS: iohexoL 350 MG/ML 100 ML INFUS..BTL IV (16:16)
== END 2024-06-23 15:18 | disposition home or self-care (01) ==
LOC: HO.CT 15:17
PROVIDERS: PCP Internal Medicine; Visit Provider Urology
DX: N28.1 Cyst of kidney, acquired (principal)
CPT/HCPCS: 74170; Q9967

== ENCOUNTER 2024-09-08 10:26 | Outpatient (AMB) | payer MEDICAID, SELFPAY ==
--- NOTE | 2024-09-08 10:26 | MHC.OFFVIS ---
Intake Visit Reasons: EGD result/discuss possible IBD Intake Note: Raul presents as a telehealth EGD and COLO follow up. CC: He states he is not having any concerns at this time. Rake Operator Required: No Allergies house dust Allergy (Mild, Verified 09/08/24 10:27) unknown mold Allergy (Mild, Verified 09/08/24 10:27) Unknown pollen extracts Allergy (Mild, Verified 09/08/24 10:27) unknown HPI HPI EGD result/discuss possible IBD: Details: 54 yr old m being called for f/u RECAP: Hx of baretts EGD/[place] 05/27/24 Endoscopy Findings: gastritis probable fundic gland polyp Colonoscopy Findings: diverticulosis colon polyps internal hemorrhoids erosive ileitis Path: hyperplastic polyps, other bx from small bowel and upper GI neg INTERIM: He feels well he has no complaints he does occasionally get left sided pain but he thinks its from the hip he was using nsaids for joint pains, he can have swollne fingers and other joints also affected he can have stiffness he had tests for RA and SLE in past he had chlamydia in the younger years but treated EXAM: GENERAL: The patient is well developed and nontoxic. A/P: 1/ given joint sx and erosions, will get CTe 2/ chekc fecal lactoferrin PFSH Medical History (Updated 09/08/24 @ 13:02 by Mariam Okeefe MD) Hypercholesteremia Joint swelling Hypertension Surgical History (Updated 09/08/24 @ 10:27 by ROMINA Sumner) Hx of colonoscopy History of esophagogastroduodenoscopy (EGD) No pertinent past surgical history Family History Father No problems noted. Mother No problems noted. Social History Household Members Other:: lives alone Alcohol intake: never Patient Tobacco Use Status: Never used Tobacco Current occupational status: unemployed Current occupation: Research Telehealth Telehealth Telehealth Platform: Telephone Location of provider rendering services: practice address Location of patient: address on file Patient Identification confirmed using: Name, : Yes Telehealth method: video Patient verbally consented to treatment: Yes Patient verbally consented to billing insurance company: Yes Patient informed of any privacy concerns related to visit: Yes Minutes spent on Phone/Video with Pt.: 10 Assessment & Plan Assessment & Plan (1) Ileal erosions: Code(s): K63.3 - Ulcer of intestine Category: Medical Plan: see above Orders: Orders Lactoferrin, Fecal, Quant. Today K51.50 - Left sided colitis without complications Coding Level of Care Code Tele Est Pt Level 4 (12240) Diagnoses Ileal erosions K63.3
== END 2024-09-08 14:11 | disposition home or self-care (01) ==
LOC: HO.HGI 10:26
PROVIDERS: PCP Internal Medicine; Visit Provider Internal Medicine Gastroenterology
DX: K63.3 Ulcer of intestine (principal)
CPT/HCPCS: 99213

== ENCOUNTER → 2024-09-08 10:26 | Outpatient (BNVA) | payer MEDICAID, SELFPAY | PROVIDERS: PCP Internal Medicine; Visit Provider Internal Medicine Gastroenterology ==

== ENCOUNTER 2024-09-15 10:03 | Outpatient (AMB) | payer MEDICAID, SELFPAY ==
--- NOTE | 2024-09-15 09:41 | MHC.OFFVIS ---
Intake Visit Reasons: follow up/CT/labs (Set) Intake Note: Patient is Present for Telephone Follow Up For CT/PSA Results Urology Med: Finasteride Antibiotic Allergy:None Blood Thinner: None CT Scan: 06/23/24 PSA: 06/17/24- 1.43 [employer] Required: No Allergies house dust Allergy (Mild, Verified 09/15/24 10:07) unknown mold Allergy (Mild, Verified 09/15/24 10:07) Unknown pollen extracts Allergy (Mild, Verified 09/15/24 10:07) unknown HPI Comments Details: 09/15/24--Raul presents for follow-up. 54-year-old male followed for kidney stones and BPH. He is currently prescribed finasteride 5 mg daily. He had a renal ultrasound done in 11/06/2023 that noted a 1.9 cm complex cyst. I have discussed follow-up CT scan renal mass protocol performed on 06/23/24. No enhancing suspicious renal masses. Bosniak type I simple cysts notes, bilateral small renal calculi. The patient has not had history of kidney stones in the past. Discussed 24 hour urine. PSA discussed 06/17/2024--1.43. Discuss discontinue finasteride on follow-up. Review of chart: 01/21/2024--Raul is evaluated via tele video. He was last seen in the office 10/24/2023 for elevated PSA and enlarged prostate. He is prescribed finasteride. He was sent for renal ultrasound. He states that he is urinating well denies dysuria or gross hematuria. I have reviewed the kidney ultrasound results there is a 1.9 cm complex cyst in the right kidney. I have discussed follow-up evaluation with CT abdomen renal protocol in 6 months. At time of follow-up will also recheck PSA. 10/24/2023--Raul is a 53 year old male who is here for evaluation for PSA. He is here today with repeat PSA to discuss results.PSA was drawn on 10/15/2023--results 2.22 ng/mL. The patient states that his primary care physician started him on finasteride. He states he has noticed improvement in urinary flow since being on the finasteride and he gets up less at night. I will continue the finasteride prescription. Ultrasound retroperitoneum, prostate measurement requested. Telehealth to discuss ultrasound results. Monitor PSA. 05/09/23--PSA---3.95 ng/mL. 09/12/23-- prostate exam- enlarged, smooth, no suspicious nodules palpated [facility] Medical History Hypercholesteremia Joint swelling Hypertension Surgical History Hx of colonoscopy History of esophagogastroduodenoscopy (EGD) No pertinent past surgical history Family History Father No problems noted. Mother No problems noted. 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 All systems reviewed & are unremarkable except as noted in HPI and below Reports no additional complaints Eyes Reports no additional complaints ENT Reports no additional complaints Card Reports no additional complaints Resp Reports no additional complaints GI Reports no additional complaints Reports as per HPI Musc Reports no additional complaints Skin/Breast Reports system reviewed and no additional complaints, except as documented Neuro Reports no additional complaints Psych Reports no additional complaints Endo Reports no additional complaints Hakeem/Lymph Reports no additional complaints Aller/Immun Reports no additional complaints Telehealth Telehealth Telehealth Platform: [facility] Location of provider rendering services: practice address Location of patient: address on file Patient Identification confirmed using: Name, : Yes Telehealth method: video Patient verbally consented to treatment: Yes Patient verbally consented to billing insurance company: Yes Patient informed of any privacy concerns related to visit: Yes Results Reviewed Results Reviewed: Date of Service: 06/23/24 CT ABDOMEN WITH CONTRAST CLINICAL INFORMATION: Renal cyst. COMPARISON: Renal ultrasound 11/13/2023: 1.9 cm cyst with calcified septations in the upper pole of the right kidney. Further evaluation with CT or MR abdomen without and with contrast renal mass protocol is recommended for further evaluation. TECHNIQUE: Contiguous axial thin section helical images of the abdomen were performed following the administration of oral contrast and 85 mL of Omnipaque 300 intravenous contrast. The data set was reformatted in the coronal and sagittal planes and reviewed on an independent workstation. This CT examination was performed using dose optimization techniques as appropriate, variously including the following: *Automated exposure control *Adjustment of mA and/or kV according to patient size (this includes techniques or standardized protocols for targeted exams where dose is matched to indication/reason for exam; i.e. extremities or head) *Use of iterative reconstruction technique DLP: 548 mGy-cm. FINDINGS: LUNG BASES: The visualized lung bases are unremarkable. LIVER, GALLBLADDER, AND BILIARY TREE: The liver is normal in size, shape, and attenuation. No focal hepatic lesion or biliary ductal dilatation is present. The gallbladder is unremarkable with no evidence of radiopaque gallstones, gallbladder wall thickening, or obvious pericholecystic inflammatory changes. PANCREAS: Unremarkable. SPLEEN: Spleen is enlarged at 13.5 cm. ADRENAL GLANDS: Unremarkable. KIDNEYS AND URETERS: The kidneys are normal in size, shape, and attenuation. Multiple small nonobstructing calcifications are seen in both kidneys, right greater than left. No hydronephrosis, hydroureter, or ureteral calculi seen. At the lower pole the right kidney, there is a 1.4 cm water-attenuation benign Bosniak class I cyst. An upper pole cyst with a calcified septum is not seen on this exam to correlate with the finding on the ultrasound study. In the left kidney, there is an upper pole parapelvic cyst. All of these cysts are benign Bosniak class I and need no additional imaging or follow up. A worrisome renal mass is not seen. GASTROINTESTINAL TRACT: Visualized bowel unremarkable. The appendix is normal. ABDOMINAL WALL: No significant hernia is appreciated. Tiny periumbilical hernia containing only fat. LYMPH NODES: Normal. VASCULAR: Calcific atherosclerotic changes are present in the aorta without abdominal aortic aneurysm. OSSEOUS STRUCTURES: Unremarkable. IMPRESSION: 1. Bilateral nonobstructing renal calculi. 2. Mild splenomegaly. 3. A concerning renal mass is not present. Bilateral benign Bosniak class I cysts are present, which need no additional imaging or follow up. Correlate with the cyst with calcified septations in the upper pole of the right kidney is not seen. A follow-up renal ultrasound in October 2024 is recommended Assessment & Plan Assessment & Plan (1) Elevated PSA: Code(s): R97.20 - Elevated prostate specific antigen [PSA] Category: Medical (2) BPH loc w urin obs/LUTS: Code(s): N40.1 - Benign prostatic hyperplasia with lower urinary tract symptoms Category: Medical (3) Bilateral kidney stones: Code(s): N20.0 - Calculus of kidney Category: Medical (4) Renal cyst: Code(s): N28.1 - Cyst of kidney, acquired Category: Medical Plan 24 hr uine Patient Instructions: The patient had an opportunity to ask questions regarding treatment plan. The patient expressed understanding and agreement with the above treatment plan. The patient is aware they should contact our office by phone for worsening of their current condition or the appearance of new symptoms. Compliance is encouraged with any medications and followup testing that is ordered. It is a privilege to be allowed the opportunity to participate in the urologic care of your patient. If you have any questions or concerns regarding treatment for the above conditions please do not hesitate to contact me. The office telephone contact is [phone]. This note is constructed in part using voice recognition software. While every effort has been made to ensure accuracy preload supervisor errors may have been included. Yours sincerely, Mariana Bazan MD Coding Level of Care Code Tele Est Pt Level 4 (86116) Diagnoses Elevated PSA R97.20 BPH loc w urin obs/LUTS N40.1 Bilateral kidney stones N20.0 Renal cyst N28.1
== END 2024-09-15 10:45 | disposition home or self-care (01) ==
LOC: HO.HUSH 10:03
PROVIDERS: PCP Internal Medicine; Visit Provider Urology
DX: R97.20 Elevated prostate specific antigen [PSA] (principal); N40.1 Benign prostatic hyperplasia with lower urinary tract symptoms; N20.0 Calculus of kidney; N28.1 Cyst of kidney, acquired
CPT/HCPCS: 99214

== ENCOUNTER → 2024-09-15 10:03 | Outpatient (BNVA) | payer MEDICAID, SELFPAY | PROVIDERS: PCP Internal Medicine; Visit Provider Urology ==

== ENCOUNTER 2025-01-12 08:17 | Outpatient (AMB) | payer MEDICAID, SELFPAY ==
--- NOTE | 2025-01-12 07:37 | MHC.OFFVIS ---
Intake Visit Reasons: 3m/[employer] Allergies house dust Allergy (Mild, Verified 09/15/24 10:07) unknown mold Allergy (Mild, Verified 09/15/24 10:07) Unknown pollen extracts Allergy (Mild, Verified 09/15/24 10:07) unknown Medication List - Last Reconciled 01/12/25 by Mariana Bazan MD albuterol sulfate 90 mcg/actuation (ProAir HFA) 2 puffs inhalation Q4-6H PRN atenolol 50 mg PO DAILY atorvastatin 10 mg PO DAILY fexofenadine (Tonia Allergy) 180 mg PO DAILY finasteride (Proscar) 5 mg PO DAILY 90 days fluticasone propionate 220 mcg/actuation (Flovent HFA) 1 puff inhalation BID hydrochlorothiazide 25 mg PO QAM lisinopril 10 mg PO DAILY mometasone (Asmanex Twisthaler) 1 inh inhalation BID montelukast 10 mg PO QPM omeprazole 20 mg PO QAM HPI Comments Details: 01/12/25--Raul is followed for kidney stones and BPH completed a 24 hour urine collection. Discussed 24 hour urine results collected:10/22/24 Total volume 2.59 L, Calcium 221 mg; Oxalate 33 mg, Citrate 472 mg, Sodium 165. I have discussed diet modification to decrease risk of forming more kidney stones. I have discussed low oxalate diet and specific foods to avoid including certain green leafy vegetables, chocalate, nuts, tea, beets, rubarb; low sodium, decreased use of animal protein and the importance of adding lemon to water to increase citrate in the diet. In regards to his BPH symptoms, he states he voiding well. The patient requests to discontinue finasteride. Discussed [id number] saw palmetto as an option. Plan follow-up in 9 months with renal ultrasound and PSA. 09/15/24--Raul presents for follow-up. 54-year-old male followed for kidney stones and BPH. He is currently prescribed finasteride 5 mg daily. He had a renal ultrasound done in 11/06/2023 that noted a 1.9 cm complex cyst. I have discussed follow-up CT scan renal mass protocol performed on 06/23/24. No enhancing suspicious renal masses. Bosniak type I simple cysts notes, bilateral small renal calculi. The patient has not had history of kidney stones in the past. Discussed 24 hour urine. PSA discussed 06/17/2024--1.43. Discuss discontinue finasteride on follow-up. 01/21/2024--Raul is evaluated via tele video. He was last seen in the office 10/24/2023 for elevated PSA and enlarged prostate. He is prescribed finasteride. He was sent for renal ultrasound. He states that he is urinating well denies dysuria or gross hematuria. I have reviewed the kidney ultrasound results there is a 1.9 cm complex cyst in the right kidney. I have discussed follow-up evaluation with CT abdomen renal protocol in 6 months. At time of follow-up will also recheck PSA. 10/24/2023--Raul is a 53 year old male who is here for evaluation for PSA. He is here today with repeat PSA to discuss results.PSA was drawn on 10/15/2023--results 2.22 ng/mL. The patient states that his primary care physician started him on finasteride. He states he has noticed improvement in urinary flow since being on the finasteride and he gets up less at night. I will continue the finasteride prescription. Ultrasound retroperitoneum, prostate measurement requested. Telehealth to discuss ultrasound results. Monitor PSA. 05/09/23--PSA---3.95 ng/mL. 09/12/23-- prostate exam- enlarged, smooth, no suspicious nodules palpated [facility] Medical History Hypercholesteremia Joint swelling Hypertension Surgical History Hx of colonoscopy History of esophagogastroduodenoscopy (EGD) No pertinent past surgical history Family History Father No problems noted. Mother No problems noted. 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 All systems reviewed & are unremarkable except as noted in HPI and below Reports no additional complaints Eyes Reports no additional complaints ENT Reports no additional complaints Card Reports no additional complaints Resp Reports no additional complaints GI Reports no additional complaints Reports as per HPI Musc Reports no additional complaints Skin/Breast Reports system reviewed and no additional complaints, except as documented Neuro Reports no additional complaints Psych Reports no additional complaints Endo Reports no additional complaints Hakeem/Lymph Reports no additional complaints Aller/Immun Reports no additional complaints Telehealth Telehealth Telehealth Platform: Telephone Location of provider rendering services: practice address Location of patient: address on file Patient Identification confirmed using: Name, : Yes Telehealth method: voice only Patient verbally consented to treatment: Yes Patient verbally consented to billing insurance company: Yes Patient informed of any privacy concerns related to visit: Yes Minutes spent on Phone/Video with Pt.: 17 Results Reviewed Results Reviewed: Date of Service: 06/23/24 CT ABDOMEN WITH CONTRAST CLINICAL INFORMATION: Renal cyst. COMPARISON: Renal ultrasound 11/13/2023: 1.9 cm cyst with calcified septations in the upper pole of the right kidney. Further evaluation with CT or MR abdomen without and with contrast renal mass protocol is recommended for further evaluation. TECHNIQUE: Contiguous axial thin section helical images of the abdomen were performed following the administration of oral contrast and 85 mL of Omnipaque 300 intravenous contrast. The data set was reformatted in the coronal and sagittal planes and reviewed on an independent workstation. This CT examination was performed using dose optimization techniques as appropriate, variously including the following: *Automated exposure control *Adjustment of mA and/or kV according to patient size (this includes techniques or standardized protocols for targeted exams where dose is matched to indication/reason for exam; i.e. extremities or head) *Use of iterative reconstruction technique DLP: 548 mGy-cm. FINDINGS: LUNG BASES: The visualized lung bases are unremarkable. LIVER, GALLBLADDER, AND BILIARY TREE: The liver is normal in size, shape, and attenuation. No focal hepatic lesion or biliary ductal dilatation is present. The gallbladder is unremarkable with no evidence of radiopaque gallstones, gallbladder wall thickening, or obvious pericholecystic inflammatory changes. PANCREAS: Unremarkable. SPLEEN: Spleen is enlarged at 13.5 cm. ADRENAL GLANDS: Unremarkable. KIDNEYS AND URETERS: The kidneys are normal in size, shape, and attenuation. Multiple small nonobstructing calcifications are seen in both kidneys, right greater than left. No hydronephrosis, hydroureter, or ureteral calculi seen. At the lower pole the right kidney, there is a 1.4 cm water-attenuation benign Bosniak class I cyst. An upper pole cyst with a calcified septum is not seen on this exam to correlate with the finding on the ultrasound study. In the left kidney, there is an upper pole parapelvic cyst. All of these cysts are benign Bosniak class I and need no additional imaging or follow up. A worrisome renal mass is not seen. GASTROINTESTINAL TRACT: Visualized bowel unremarkable. The appendix is normal. ABDOMINAL WALL: No significant hernia is appreciated. Tiny periumbilical hernia containing only fat. LYMPH NODES: Normal. VASCULAR: Calcific atherosclerotic changes are present in the aorta without abdominal aortic aneurysm. OSSEOUS STRUCTURES: Unremarkable. IMPRESSION: 1. Bilateral nonobstructing renal calculi. 2. Mild splenomegaly. 3. A concerning renal mass is not present. Bilateral benign Bosniak class I cysts are present, which need no additional imaging or follow up. Correlate with the cyst with calcified septations in the upper pole of the right kidney is not seen. A follow-up renal ultrasound in October 2024 is recommended Assessment & Plan Assessment & Plan (1) Elevated PSA: Code(s): R97.20 - Elevated prostate specific antigen [PSA] Category: Medical (2) BPH loc w urin obs/LUTS: Code(s): N40.1 - Benign prostatic hyperplasia with lower urinary tract symptoms Category: Medical (3) Bilateral kidney stones: Code(s): N20.0 - Calculus of kidney Category: Medical (4) Renal cyst: Code(s): N28.1 - Cyst of kidney, acquired Category: Medical Plan The patient requests to discontinue finasteride. Plan follow-up in 9 months with renal ultrasound and PSA. Orders: Orders US renal BI 6 Months N20.0 - Calculus of kidney, N28.1 - Cyst of kidney, acquired PSA,Total (Free>4and<10) 6 Months N40.1 - Benign prostatic hyperplasia with lower urinary tract symptoms, R97.20 - Elevated prostate specific antigen [PSA] Patient Instructions: The patient had an opportunity to ask questions regarding treatment plan. The patient expressed understanding and agreement with the above treatment plan. The patient is aware they should contact our office by phone for worsening of their current condition or the appearance of new symptoms. Compliance is encouraged with any medications and followup testing that is ordered. It is a privilege to be allowed the opportunity to participate in the urologic care of your patient. If you have any questions or concerns regarding treatment for the above conditions please do not hesitate to contact me. The office telephone contact is [phone]. This note is constructed in part using voice recognition software. While every effort has been made to ensure accuracy database design analyst errors may have been included. Yours sincerely, Mariana Bazan MD Coding Level of Care Code Tele Est Pt Level 4 (42806) Diagnoses Elevated PSA R97.20 BPH loc w urin obs/LUTS N40.1 Bilateral kidney stones N20.0 Renal cyst N28.1
--- OUTSIDE RECORDS SUMMARY | 2025-01-12 08:34 | XMS_ITS | Encounter Summary ---
Author Organization [facility] Address [address] [place] [address] [address] [place] [address] Care Team Providers Care Vendor Representatives Name Role Phone Shon Sorensen MD Primary Care Prov ider Encounter Details Date Type Department Care Team (Late st Contact Info) Description 09/14/2022 Orders Only [facility] [address] [place] [address] Anh Correa RN [address] [place] [address] Social History Tobacco Use Types Packs/Day Years Used Date Smoking Tobacco: Never Assessed Sex and Gender Information Value Date Recorded Sex Assigned at Male 07/17/2022 10:35 AM EDT Legal Sex Male 10:35 AM EDT Gender Identity Male 07/17/2022 10:35 AM EDT Sexual Orientation Straight 07/17/2022 10 :35 AM EDT documented as of this encounter Plan of Treatment Upcoming Encounters Date Type Department Care Team (Late st Contact Info) Description 01/12/2025 1:45 PM EDT Telemedicine [facility] [address] [place] [address] Shon Sorensen MD [address] [place] [address] documented as of this encounter Procedures Procedure Name Priority Date/Time Associated Diagnosis Comments HEPATITIS C ANTIBODY REFLEX Routine 05/15/2023 9:48 AM EDT COMPREHENSIVE METABOLIC PANEL, FASTING Routine 05/15/2023 9:48 AM EDT DNA (DS) ANTIBODY Routine 05/15/2023 9:4 8 AM EDT IMMUNOGLOBULIN G Routine 05/15/2023 9:48 AM EDT documented in this encounter Results * Immunoglobulin G (05/15/2023 9:48 AM EDT) Immunoglobulin G 1018 600 - 1640 mg/dL [facility] Comment:THIS TEST WAS PERFOR MED AT:[employer] [address] [id number] MONCADA MD 05/15/2023 9:48 AM EDT 05/15/2023 2:32 PM EDT Shon Velazquez MD LAB BLOOD ORDERABL ES Final Result Performing Organization Address [facility] Co de Phone Number [facility] [address] [place] [phone] * DNA (ds) Antibody (05/15/2023 9:48 AM EDT) Pathologist [facility] Anti DNA DS Antibody <1 IU/mL [facility] Comment:IU/mL Interpretation < or = 4 Negative 5-9 Indeterminate > or = 10 PositiveTHIS TEST WAS PERFORMED AT:[employer] [address] [id number] MONCADA MD 05/15/2023 9:48 AM EDT 05/15/2023 2:32 PM EDT Shon Velazquez MD LAB BLOOD ORDERABL ES Final Result Performing Organization Address City/[facility]/ZIP Co de Phone Number [facility] [address] [place] [phone] * Hepatitis C Antibody Reflex (05/15/2023 9:48 AM EDT) Pathologist [facility] Hepatitis C Antibody Nonreactive Nonreactive [facility] Comment:Antibodies to HCV no t detected; does not exclude early acuteHCV infection. 05/15/2023 9:48 AM EDT 05/15/2023 2:32 PM EDT us Shon Velazquez MD LAB BLOOD ORDERABL ES Final Result [facility] [address] [place], [place] [phone] * (ABNORMAL) Comprehensive Metabolic Panel, Fasting (05/15/2023 9:48 AM EDT) Sodium 140 135 - 145 mmol/L [facility] Potassium 4.1 3.3 - 5.1 mmol/L [facility] Chloride 105 96 - 108 mmol/L [facility] Carbon Dioxide 27 22 - 29 mmol/L [facility] Anion Gap 12 12 - 20 [facility] Urea Nitrogen (BUN) 9 9 - 16 mg/dL [facility] Creatinine, Serum 0.95 0.5 - 1.4 mg/dL [facility] Estimated Glomerular Filt Rate >60 [facility] Comment:NOTE: For -Am erican individuals, multiply the result by 1.210.Chronic Kidney Disease: Estimated GFR < 60 mL/min/1.69p1Rormkw Kidney Disease: Estimated GFR < 15 mL/min/1.73m2 Glucose Fasting 94 60 - 99 mg/dL [facility] Calcium 9.7 8.4 - 10.2 mg/dL [facility] Bilirubin, Total 0.9 0.0 - 1.0 mg/dL [facility] Aspartate Amino Transferase 23 5 - 37 U/L [facility] Alanine Aminotransferase 46(H) 0 - 40 U/L [facility] Total Protein 7.3 6.5 - 8.0 g/dL [facility] Albumin Level 4.5 3.5 - 5.0 g/dL [facility] Alkaline Phosphatase 86 39 - 117 U/L [facility] 05/15/2023 9:48 AM EDT 05/15/2023 2:32 PM EDT us Shon Velazquez MD LAB BLOOD ORDERABL ES Final Result [facility] [address] [place] [phone] documented in this encounter Visit Diagnoses Not on filedocumented in this encounter Care Teams Vendor Representatives Relationship Specialty Start Date End Date Shon Sorensen MD [address] [place] [phone] PCP - General Internal Medicine 01/26/20 documented as of this encounter
--- OUTSIDE RECORDS SUMMARY | 2025-01-12 08:34 | XMS_ITS | Encounter Summary ---
Author Organization [facility] Address [address] [place] [address] [address] [place] [address] Care Team Providers Care Dowel Inspector Name Role Phone Shon Sorensen MD Primary Care Prov ider Encounter Details Date Type Department Care Team (Late Contact Info) Description 08/22/2022 Telephone [facility] [address] [place] [address] Shon Sorensen MD [address] [place] [address] Social History Tobacco Use Types Packs/Day Years [...] Encounters Date Type Department Care Team (Late Contact Info) Description 01/12/2025 1:45 PM EDT Telemedicine [facility] [address] [place] [address] Shon Sorensen MD [address] [place], [place] [phone] documented as of this encounter Visit Diagnoses Not on filedocumented in this encounter Care Teams Dowel Inspector Relationship Specialty Start Date End Date Shon Sorensen MD [address] [place] [address] PCP - General Internal Medicine 01/26/20 documented as of this encounter
--- OUTSIDE RECORDS SUMMARY | 2025-01-12 08:34 | XMS_ITS | Encounter Summary ---
Author Organization [employer] [facility] Address [address] [place] [address] 7t [place] [address] Care Team Providers Care Precision Agriculture Technician Name Role Phone Shon Sorensen MD Primary Care Prov ider Encounter Details Date Type Department Care Team (Latest Contact Info) Description 06/13/[address] [facility] CONVERSIONS Dental, Provider, DDS Social History Tobacco Use Types Packs/Day Years [...] Info) Description 01/12/2025 1:45 PM EDT Telemedicine [facility] CHC MED & PEDS [address] [place] [address] Shon Sorensen MD [address] [place] [address] documented as of this encounter Visit Diagnoses Not on filedocumented in this encounter Care Teams Precision Agriculture Technician Relationship Specialty Start Date End Date Shon Sorensen MD [address] [place] [address] PCP - General Internal Medicine 01/26/20 documented as of this encounter
--- OUTSIDE RECORDS SUMMARY | 2025-01-12 08:34 | XMS_ITS | Encounter Summary ---
Author Organization [employer] Address [address] [facility] 7t [place] [address] Care Team Providers Care Lighting Engineering Technician Name Role Phone Shon Sorensen MD Primary Care Prov ider Reason for Visit * Reason Comments Med Refill Encounter Details Date Type Department Care Team ([facility] st Contact Info) Description 12/03/2023 Refill [facility] CHC MED & PEDS [address] [place], [place] [phone] Shon Sorensen MD [address] [place] [address] Social History Tobacco Use Types Packs/Day Years Used Date Smoking Tobacco: Never Smokeless Tobacco: Never Alcohol Use Standard Drinks/Week Comments Not Currently 0 (1 standard drink = 0.6 oz pur e alcohol) Depression Answer Date Recorded Patient Health Questionnaire-9 Score 0 05/14/2023 Housing Stability Answer Date Recorded What is your housing situation today? I have raghu biswas 07/05/[address] you li ve. Do you have problems with any of the following? None of the above 07/05/2023 Food Insecurity Answer Date Recorded Within the past 12 months, y ou worried that your food would run out before you got money to buy more: Never True 07/05/2023 Within the past 12 months,th e food you bought just didn't last and you didn't have enough money to get more: Never True Transportation Answer Date Recorded In the past 12 months, has l ack of transportation kept you from medical appts, meetings, work or from getting things needed for daily living? No 07/05/2023 Utilities Answer Date Recorded In the past 12 months, has t he electric, gas, oil or water company threatened to shut off services in your home? No 07/05/2023 Depression Answer Date Recorded Patient Health Questionnaire-2 Score 0 05/14/2023 Sex and Gender Information Value Date Recorded Sex Assigned at Male 07/17/2022 10:35 AM EDT Legal Sex Male 10:35 AM EDT Gender Identity Male 07/17/2022 10:35 AM EDT Sexual Orientation Straight 07/17/2022 10 :35 AM EDT documented as of this encounter Plan of Treatment Upcoming Encounters Date Type Department Care Team (Late st Contact Info) Description 01/12/2025 1:45 PM EDT Telemedicine [facility] MED & PEDS [address] [place] [address] Shon Sorensen MD [address] [place] [address] documented as of this encounter Visit Diagnoses Not on filedocumented in this encounter Additional Health Concerns Assessment Noted Time PHQ-9 Depression Total Score: 0 05/14/20 23 1:03 PM EDT documented as of this encounter Care Teams Lighting Engineering Technician Relationship Specialty Start Date End Date Shon Sorensen MD [address] [place] [address] PCP - General Internal Medicine 01/26/20 documented as of this encounter
--- OUTSIDE RECORDS SUMMARY | 2025-01-12 08:34 | XMS_ITS | Clinical Summary ---
Author Organization [employer] Address [address] [facility] [address] 7t [place] [address] Care Team Providers Care Offender Job Retention Specialist Name Role Phone Shon Sorensen MD Primary Care Prov ider Allergies No known active allergies Medications hydroCHLOROthiazide (HYDRODiuril) 25 MG tabletIndications:Jolene garcia hypertension TAKE ONE TABLET BY MOUTH EVERY MORNING 90 tablet 3 4 Active atorvastatin (Lipitor) 10 MG tabletIndications:Mix ed hyperglyceridemia TAKE ONE TABLET DAILY 90 tablet 3 4 Active lisinopril 10 MG tabletIndications:Jolene garcia hypertension TAKE ONE TABLET EVERY MORNING 90 tablet 3 4 Active montelukast (Singulair) 10 MG tablet TAKE ONE TABLET EVERY EVENING 90 tablet 3 4 Active omeprazole (PriLOSEC) [address] capsule TAKE ONE CAPSULE DAILY BEFORE A MEAL 90 capsule 3 4 Active Proventil HFA 108 (90 Base) MCG/ACT inhaler INHALE TWO PUFFS EVERY 4 TO 6 HOURS NEEDED 6.7 g 11 4 Active Asmanex, 120 Metered Doses, 220 MCG/ACT aerosol powder INHALE ONE PUFF TWICE DAILY, RINSE MOUTH AFTER USE 1 each 3 4 Active atenolol (Tenormin) 50 MG tabletIndications:Jolene garcia hypertension TAKE ONE TABLET EVERY MORNING 90 tablet 2 5 Active Active Problems Problem Noted Date Diagnosed Date Mixed hyperlipidemia 08/16/2023 Assessment & Plan (10/14/2024 11:00 AM EST): Controlled, continue statin therapy, encouraged weight loss/exercise, follow up in 3 months Assessment & Plan (08/16/2023 3:18 PM EST): On atorvastatin, no changes will be made, last labs don on 04/2023 Primary hypertension 05/14/2023 Assessment & Plan (10/14/2024 10:52 AM EST): Controlled, contninue low sodium diet and exercise as tolerated, keep bp log, target <140/90 Assessment & Plan (06/09/2024 1:31 PM EDT): Controlled, at home has been ranging on the 120's/70's to 80's, continue low sodium diet and exercise as tolerated, keep bp log target <140/90, labs not done Assessment & Plan (02/21/2024 3:10 PM EDT): Stable, he has WCS, at home has remained below 140/90, continue low sodium diet and exercise as tolerated Assessment & Plan (11/15/2023 10:23 AM EST): Controlled, refers bp has maintained below 140/90, no changes will be made, continue low sodium diet and exercise as tolerated, new labs will be ordered Assessment & Plan (08/16/2023 3:14 PM EST): Controlled, refers maintains below 140/90, no changes will be made, reinforced low sodium diet and exercise as tolerated Assessment & Plan (05/14/2023 1:30 PM EDT): Controlled, reinforced low sodium diet and exercise as tolerated, will order new labs for guidance Joint swelling 05/14/2023 Assessment & Plan (05/14/2023 1:32 PM EDT): Will order rheumatologic workup as well as lyme disease test, will notify results. Prostate cancer screening 05/14/2023 Colon cancer screening 05/14/2023 Screening for STD (sexually transmitted disease) 05/14/2023 Encounters Date Type Department Care Team Description 01/05/2025 Travel 12/09/2024 Refill [facility] CHC MED & PEDS [address] [place] [address] Shon Sorensen MD Primary hypertension 11/28/2024 Population Health Risk Score [facility] () Department [address] [place] [phone] Provider, Population Health Generic 10/14/2024 10:30 AM EST Telemedicine [facility] CHC MED & PEDS [address] [place] [address] Shon Sorensen MD Primary hypertension (Primary Dx); Mixed hyperlipidemia 10/14/2024 Travel from Last 3 Months Social History Tobacco Use Types Packs/Day Years Used Date Smoking Tobacco: Never Smokeless Tobacco: Never Tobacco Cessation:Counseling Given: Not Answered Alcohol Use Standard Drinks/Week Comments Not Currently [...] Orientation Straight 07/17/2022 10 :35 AM EDT Last Filed Vital Signs Vital Sign Reading Time Taken Comments Blood Pressure 134/88 10/14/2024 10:24 AM EST Pulse 66 02/21/2024 1:00 PM EDT Temperature 36.4 ??C (97.5 ??F) 02/21/2024 1:00 PM ED T Respiratory Rate 21 02/21/2024 1:00 PM EDT Oxygen Saturation 99% 02/21/2024 1:00 PM EDT Inhaled Oxygen Concentration - - Weight 96.2 kg (212 lb) 02/21/2024 1:00 PM EDT Height 180.3 cm (5' 11 ) 02/21/2024 1:00 PM EDT Body Mass Index 29.57 02/21/2024 1:00 PM EDT Plan of Treatment Upcoming Encounters Date Type Department Care Team (Late st Contact Info) Description 01/12/2025 1:45 PM EDT Telemedicine [facility] CHC MED & PEDS [address] [place] [address] Shon Sorensen MD [address] [place] [address] Health Maintenance Due Date Last Done Comments CT Colonography 1971 Colonoscopy 1971 Colorectal Cancer Screening 1971 FIT DNA/Cologuard 1971 FIT 1971 FOBT 1971 HIV Screening 1971 Sigmoidoscopy 1971 Alcohol/Substance Use Screening 1983 Pneumococcal Vaccine: 50+ Years (3 of 3 - PCV20 or PCV21) 2021 06/25/2013, 06/25/2013 Zoster Vaccines (1 of 2) 2021 DTaP/Tdap/Td Vaccines (2 - Td or Tdap) 07/16/2023 07/16/2013 Depression Screening 05/14/2024 05/14/2023, 05/14/20 23 SDOH Screening 05/14/2024 05/14/2023 Tobacco Screening 06/09/2025 06/09/2024 Lipid Panel 06/17/2029 06/17/2024, 03/0 12/2023, 05/15/2023, Additional history exists RSV Patients and Patients Aged 60 years or older (1 - 1-dose 75+ series) 2046 Hepatitis B Vaccines Completed 10/16/2013, 07/16/2013, 06/11/2013 Hepatitis C Screening Completed 05/15/2023 COVID-19 Vaccine Completed 06/15/2024, , 12/02/2022, Additional history exists Influenza Vaccine Completed 06/15/2024, , 07/05/2021, Additional history exists HIB Vaccines Aged Out No longer eligi ble based on patient's age to complete this topic HPV Vaccines Aged Out No longer eligi ble based on patient's age to complete this topic Hepatitis A Vaccines Aged Out No long er eligible based on patient's age to complete this topic IPV Vaccines Aged Out No longer eligi ble based on patient's age to complete this topic Meningococcal Vaccine Aged Out No fabrizio michelle eligible based on patient's age to complete this topic RSV under 20 months Aged Out No longe r eligible based on patient's age to complete this topic Rotavirus Vaccines Aged Out No longer eligible based on patient's age to complete this topic Procedures Procedure Name Priority Date/Time Associated Diagnosis Comments LIPID PANEL, STANDARD Routine 06/17/2024 8:46 AM EDT Primary hypertension HEPATITIS C ANTIBODY REFLEX Routine 05/15/2023 9:48 AM EDT from Last 3 Months or Most Recently Relevant to Health Maintenance Results * Lipid Panel, Standard (06/17/2024 8:46 AM EDT) Triglycerides 120 <150 mg/dL [facility] Comment:Desirable Triglyceri de: less than 150 mg/dLBorderline High Triglyceride 150-199 mg/dLHigh Triglyceride: 200-499 mg/dLVery High Triglyceride: greater than or equal to 5OO mg/dL Cholesterol 133 <200 mg/dL [facility] Comment:Desirable Cholestero l: less than 200 mg/dLBorderline High Cholesterol: 200-239 mg/dLHigh Cholesterol: greater than 239 mg/dL LDL Cholesterol Calculated 65 <100 mg/dL [facility] Comment:Desirable LDL: less than 100 mg/dLNear Optimal/Above Optimal LDL: 110- 129 mg/dLBorderline High LDL: 130-159 mg/dLHigh LDL: 160-189 mg/dLVery High LDL: greater than or equal to 190 mg/dL HDL Cholesterol 44 >40 mg/dL [facility] Comment:Desirable HDL: great er than 40 mg/dL Note: This HDL assay may give artificially low results in patients with liver disease. Blood Venous blood specimen / Unknown 06/17/2024 8:46 AM EDT 06/17/2024 2:13 PM EDT Shon Velazquez MD LAB BLOOD ORDERABL ES Final Result Performing Organization Address [facility] Co de Phone Number [facility] [address] [place] [phone] * Hepatitis C Antibody Reflex (05/15/2023 9:48 AM EDT) Hepatitis C Antibody Nonreactive Nonreactive [facility] Comment:Antibodies to HCV no t detected; does not exclude early acuteHCV infection. 05/15/2023 9:48 AM EDT 05/15/2023 2:32 PM EDT Shon Velazquez MD LAB BLOOD ORDERABL ES Final Result Performing Organization Address [facility] Co de Phone Number [facility] [address] [place] [phone] from Last 3 Months or Most Recently Relevant to Health Maintenance Insurance [facility] C[facility] Care Teams Offender Job Retention Specialist Relationship Specialty Start Date End Date AparicioShon Pimentel MD [address] [place] [address] [place] [address] PCP - General Internal Medicine 01/26/20
--- OUTSIDE RECORDS SUMMARY | 2025-01-12 08:34 | XMS_ITS | Encounter Summary ---
Author Organization [employer] [facility] Address [address] [place] [address] 7 [place] [address] Care Team Providers Care J2Ee Consultant Name Role Phone Shon Sorensen MD Primary Care Prov ider Encounter Details Date Type Department Care Team (Late Contact Info) Description 05/30/2023 Orders Only [facility] MED & PEDS [address] [place], [place] [phone] Dorinda Kessler LPN Social History Tobacco Use Types Packs/Day Years Used Date Smoking Tobacco: Never Smokeless Tobacco: Never Alcohol Use Standard Drinks/Week Comments Not Currently 0 (1 standard drink = 0.6 oz pur e alcohol) Depression Answer Date Recorded Patient Health Questionnaire-9 Score 0 05/14/2023 Depression Answer Date Recorded Patient Health Questionnaire-2 [...] Info) Description 01/12/2025 1:45 PM EDT Telemedicine [facility] MED & PEDS [address] [place], [place] [phone] Shon Sorensen MD [address] [place] [address] documented as of this encounter Visit Diagnoses Not on filedocumented in this encounter Additional Health Concerns Assessment Noted Time PHQ-9 Depression Total Score: 0 05/14/20 23 1:03 PM EDT documented as of this encounter Care Teams J2Ee Consultant Relationship Specialty Start Date End Date Shon Sorensen MD [address] [place] [phone] PCP - General Internal Medicine 01/26/20 documented as of this encounter
== END 2025-01-12 09:22 | disposition home or self-care (01) ==
LOC: HO.HUSH 08:17
PROVIDERS: PCP Internal Medicine; Visit Provider Urology
DX: R97.20 Elevated prostate specific antigen [PSA] (principal); N40.1 Benign prostatic hyperplasia with lower urinary tract symptoms; N20.0 Calculus of kidney; N28.1 Cyst of kidney, acquired
CPT/HCPCS: 99214

== ENCOUNTER 2025-01-30 10:53 | Emergency (ER) | payer MEDICAID, SELFPAY ==
[2025-01-30 10:58] VITALS: BP 151/90; PULSE 71; RESP 18; TEMP 36.4; O2SAT 99; BMI 29.0
--- OUTSIDE RECORDS SUMMARY | 2025-01-30 12:26 | XMS_ITS | Encounter Summary ---
Author Organization [employer] Address [address] [address] 7t [place] [address] Care Team Providers Care Mortgage Processing Manager Name Role Phone Shon Sorensen MD Primary Care Prov ider Reason for Visit * Reason Onset Date Comments Nurse Triage 01/30/2025 Encounter Details Date Type Department Care Team ([facility] st Contact Info) Description 01/30/2025 Telephone [facility] MEDICINE [address] [place] [address] Shon Sorensen MD [address] [place] [address] Nurse Triage Social History Tobacco Use Types Packs/Day Years Used Date Smoking Tobacco: Never Smokeless Tobacco: Never Alcohol Use Standard Drinks/Week Comments Not Currently 0 (1 standard drink = 0.6 oz pur e alcohol) Depression Answer Date Recorded Patient Health Questionnaire-9 Score 0 01/12/2025 Patient Health Questionnaire-9 Score 0 01/12/2025 Last PHQ-9: Questionnaire Data Not on file 0 01/12/2025 Housing Stability Answer Date Recorded What is [...] Date Recorded Patient Health Questionnaire-2 Score 0 01/12/2025 Sex and Gender Information Value Date Recorded Sex Assigned at Male 07/17/2022 10:35 AM EDT Legal Sex Male 10:35 AM EDT Gender Identity Male 07/17/2022 10:35 AM EDT Sexual Orientation Straight 07/17/2022 10 :35 AM EDT documented as of this encounter Miscellaneous Notes * Telephone Encounter - Jesica Mcnamara RN - 01/30/2025 10:35 AM EDT Call returned to Raul Sigala to triage below. Reports having two dog bites that occurred on Sunday night. Per pt brand activation manager said that papers were good . Per pt has one on hand and one above ankle. Pt does not have any discharge or bleeding. Redness and swelling around bite holliday. Tender to touch.Pt advised of disposition, agrees to seek [facility] ER now for exam. Reviewed home care advise, ER precautions and reasons to call back. Sent to team for [facility] ER status check PRN. Protocol Used: Animal Bite (Adult) Protocol-Based Disposition: Go to ED Now Positive Triage Question: * Any break in skin from BITE (e.g., cut, puncture, or scratch) and PET animal (e.g., dog, cat, or ferret) at risk for RABIES (e.g., sick, stray, unprovoked bite, developing country) * All higher-acuity triage questions were negative Care Advice Discussed: * Clean the Wound * Antibiotic Ointment * Reasons To Call Back - Fever occurs - You become worse * Telephone Encounter - Zoe Law - 01/30/2025 10:15 AM EDT Symptom: Animal Bite (Dog, pt states looks infected) Outcome: Schedule an urgent appointment (within 1 hour) or talk to a nurse or provider soon Reason: Bite broke the skin (cut, puncture, or scratch) The caller accepted this outcome. [phone] documented in this encounter Plan of Treatment Upcoming Encounters Date Type Department Care Team ([facility] st Contact Info) Description 04/14/2025 10:15 AM EDT Telemedicine [facility] MED & PEDS [address] [place] [address] Shon Sorensen MD [address] [place] [address] documented as of this encounter Visit Diagnoses Not on filedocumented in this encounter Additional Health Concerns Assessment Noted Time PHQ-9 Depression Total Score: 0 01/13/20 25 1:41 PM EDT documented as of this encounter Care Teams Mortgage Processing Manager Relationship Specialty Start Date End Date Shon Sorensen MD [address] [place] [address] PCP - General Internal Medicine 01/26/20 documented as of this encounter
--- OUTSIDE RECORDS SUMMARY | 2025-01-30 12:26 | XMS_ITS | Encounter Summary ---
Author Organization [employer] Address [address] [facility] 7t [place] [address] Care Team Providers Care Tea Plantation Worker Name Role Phone Shon Sorensen MD Primary Care Prov ider Reason for Visit * Reason Comments Med Refill Encounter Details Date Type Department Care Team ([facility] Contact Info) Description 12/03/2023 Refill [facility] CHC MED & PEDS [address] [place], [place] [phone] Shon Sorensen MD [address] [place] [address] Social History Tobacco Use Types Packs/Day Years [...] Care Team (Late st Contact Info) Description 04/14/2025 10:15 AM EDT Telemedicine [facility] MED & PEDS [address] [place] [address] Shon Sorensen MD [address] [place] [address] documented as of this encounter Visit Diagnoses Not on filedocumented in this encounter Additional Health Concerns Assessment Noted Time PHQ-9 Depression Total Score: 0 05/14/20 23 1:03 PM EDT documented as of this encounter Care Teams Tea Plantation Worker Relationship Specialty Start Date End Date Shon Sorensen MD [address] [place] [address] PCP - General Internal Medicine 01/26/20 documented as of this encounter
--- OUTSIDE RECORDS SUMMARY | 2025-01-30 12:27 | XMS_ITS | Encounter Summary ---
Author Organization [employer] Address [address] [place] [address] 7 [place] [address] Care Team Providers Care Outdoor Advertising Leasing Agent Name Role Phone Shon Sorensen MD Primary Care Prov ider Encounter Details Date Type Department Care Team (Late st Contact Info) Description 09/14/2022 Orders Only [facility] MED & PEDS [address] [place] [address] Anh Correa RN [address] [place] [address] Social History Tobacco Use Types Packs/Day Years [...] Info) Description 04/14/2025 10:15 AM EDT Telemedicine [facility] MED & PEDS [address] [place] [address] Shon Sorensen MD [address] [place] [address] documented as of this encounter Procedures Procedure Name Priority Date/Time Associated Diagnosis Comments HEPATITIS C ANTIBODY REFLEX Routine 05/15/2023 9:48 AM EDT COMPREHENSIVE METABOLIC PANEL, FASTING Routine 05/15/2023 9:48 AM EDT DNA (DS) ANTIBODY Routine 05/15/2023 9:4 8 AM EDT IMMUNOGLOBULIN G Routine 05/15/2023 9:48 AM EDT documented in this encounter Results * Immunoglobulin G (05/15/2023 9:48 AM EDT) Pathologist [facility] Immunoglobulin G 1018 600 - 1640 mg/dL [facility] Comment:THIS TEST WAS PERFOR MED AT:[employer] [address] [id number] MONCADA MD 05/15/2023 9:48 AM EDT 05/15/2023 2:32 PM EDT Shon Velazquez MD LAB BLOOD ORDERABL ES Final Result Performing Organization Address [facility] Co de Phone Number [facility] [address] [place] [phone] * DNA (ds) Antibody (05/15/2023 9:48 AM EDT) Pathologist [facility] Anti DNA DS Antibody <1 IU/mL [facility] Comment:IU/mL Interpretation < or = 4 Negative 5-9 Indeterminate > or = 10 PositiveTHIS TEST WAS PERFORMED AT:[employer] [address] [id number] MONCADA MD 05/15/2023 9:48 AM EDT 05/15/2023 2:32 PM EDT Shon Velazquez MD LAB BLOOD ORDERABL ES Final Result Performing Organization Address [facility] Co de Phone Number [facility] [address] [place] [phone] * Hepatitis C Antibody Reflex (05/15/2023 9:48 AM EDT) Pathologist [facility] Hepatitis C Antibody Nonreactive Nonreactive [facility] Comment:Antibodies to HCV no t detected; does not exclude early acuteHCV infection. 05/15/2023 9:48 AM EDT 05/15/2023 2:32 PM EDT us Shon Velazquez MD LAB BLOOD ORDERABL ES Final Result [facility] [address] [place] [phone] * (ABNORMAL) Comprehensive Metabolic Panel, Fasting (05/15/2023 9:48 AM EDT) Sodium 140 135 - 145 mmol/L [facility] Potassium 4.1 3.3 - 5.1 mmol/L [facility] Chloride 105 96 - 108 mmol/L [facility] Carbon Dioxide 27 22 - 29 mmol/L [facility] Anion Gap 12 12 - 20 [facility] Urea Nitrogen (BUN) 9 9 - 16 mg/dL [facility] Creatinine, Serum 0.95 0.5 - 1.4 mg/dL [facility] Estimated Glomerular Filt Rate >60 [facility] Comment:NOTE: For -Am erican individuals, multiply the result by 1.210.Chronic Kidney Disease: Estimated GFR < 60 mL/min/1.72b2Xkzipx Kidney Disease: Estimated GFR < 15 mL/min/1.73m2 Glucose Fasting 94 60 - 99 mg/dL [facility] Calcium 9.7 8.4 - 10.2 mg/dL [facility] Bilirubin, Total 0.9 0.0 - 1.0 mg/dL [facility] Aspartate Amino Transferase 23 5 - 37 U/L [facility] Alanine Aminotransferase 46(H) 0 - 40 U/L [facility] Total Protein 7.3 6.5 - 8.0 g/dL [facility] Albumin Level 4.5 3.5 - 5.0 g/dL [facility] Alkaline Phosphatase 86 39 - 117 U/L [facility] 05/15/2023 9:48 AM EDT 05/15/2023 2:32 PM EDT us Shon Velazquez MD LAB BLOOD ORDERABL ES Final Result [facility] [address] [place] [phone] documented in this encounter Visit Diagnoses Not on filedocumented in this encounter Care Teams Outdoor Advertising Leasing Agent Relationship Specialty Start Date End Date Shon Sorensen MD [address] [place] [phone] PCP - General Internal Medicine 01/26/20 documented as of this encounter
--- OUTSIDE RECORDS SUMMARY | 2025-01-30 12:27 | XMS_ITS | Encounter Summary ---
Author Organization [employer] Address [address] [facility] 7t [place] [address] Care Team Providers Care Absorption Plant Operator Helper Name Role Phone Shon Sorensen MD Primary Care Prov ider Reason for Visit * Reason Comments Med Refill Encounter Details Date Type Department Care Team ([facility] Contact Info) Description 01/30/2025 Refill [facility]EDS [address] [place] [address] Shon Sorensen MD [address] [place] [address] Mixed hyperglyceridemia Social History Tobacco Use Types Packs/Day Years [...] Info) Description 04/14/2025 10:15 AM EDT Telemedicine [facility] MED & PEDS [address] [place] [address] Shon Sorensen MD [address] [place] [address] documented as of this encounter 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
--- OUTSIDE RECORDS SUMMARY | 2025-01-30 12:27 | XMS_ITS | Encounter Summary ---
Author Organization [employer] Address [address] [place] [address] [facility] [place] [address] Care Team Providers Care Engine Lathe Set Up Operator Tool Name Role Phone Shon Sorensen MD Primary Care Prov ider Encounter Details Date Type Department Care Team (Late st Contact Info) Description 05/30/2023 Orders Only [facility] MED & PEDS [address] [place], [place] [phone] Dorinda Kessler LPN Social History Tobacco Use [...] Info) Description 04/14/2025 10:15 AM EDT Telemedicine [facility] MED & PEDS [address] [place], [place] [phone] Shon Sorensen MD [address] [place] [address] documented as of this encounter Visit Diagnoses Not on filedocumented in this encounter Additional Health Concerns Assessment Noted Time PHQ-9 Depression Total Score: 0 05/14/20 23 1:03 PM EDT documented as of this encounter Care Teams Engine Lathe Set Up Operator Tool Relationship Specialty Start Date End Date Shon Sorensen MD [address] [place] [id number] PCP - General Internal Medicine 01/26/20 documented as of this encounter
--- OUTSIDE RECORDS SUMMARY | 2025-01-30 12:27 | XMS_ITS | Encounter Summary ---
Author Organization [employer] Address [address] [place] [address] 7t [place] [address] Care Team Providers Care Hired Help Name Role Phone Shon Sorensen MD Primary Care Prov ider Encounter Details Date Type Department Care Team (Latest Contact Info) Description 06/13/2019 Abstract [facility] Dental, Provider, DDS Social History Tobacco [...] Info) Description 04/14/2025 10:15 AM EDT Telemedicine [facility] MED & PEDS [address] [place] [address] Shon Sorensen MD [address] [place] [address] documented as of this encounter Visit Diagnoses Not on filedocumented in this encounter Care Teams Hired Help Relationship Specialty Start Date End Date Shon Sorensen MD [address] [place] [address] PCP - General Internal Medicine 01/26/20 documented as of this encounter
--- OUTSIDE RECORDS SUMMARY | 2025-01-30 12:27 | XMS_ITS | Encounter Summary ---
Author Organization [employer] Address [address] [facility] [address] 7[address] [place] [address] Care Team Providers Care Corn Breeder Name Role Phone Shon Sorensen MD Primary Care Prov ider Reason for Visit * Reason Comments Med Refill Encounter Details Date Type Department Care Team ([facility] Contact Info) Description 01/28/2025 Refill [facility] MED & PEDS [address] [place] [address] Shon Sorensen MD [address] [place] [address] Primary hypertension Social History Tobacco Use Types Packs/Day Years [...] 04/14/2025 10:15 AM EDT Telemedicine [facility] MED & PEDS [address] [place] [address] Shon Sorensen MD [address] [place] [address] documented as of this encounter Visit Diagnoses Diagnosis Primary hypertension Unspecified essential hypertension documented in this encounter Additional Health Concerns Assessment Noted Time PHQ-9 Depression Total Score: 0 01/13/20 25 1:41 PM EDT documented as of this encounter Care Teams Corn Breeder Relationship Specialty Start Date End Date Shon Sorensen MD [address] [place] [address] PCP - General Internal Medicine 01/26/20 documented as of this encounter
--- OUTSIDE RECORDS SUMMARY | 2025-01-30 12:27 | XMS_ITS | Clinical Summary ---
Author Organization [employer] Address [address] [facility] [address] [place] [address] Care Team Providers Care Proof Plate Maker Name Role Phone Shon Sorensen MD Primary Care Prov ider Allergies No known active allergies Medications atorvastatin (Lipitor) 10 MG tabletIndications:Mi xed hyperglyceridemia TAKE ONE TABLET DAILY 90 tablet 3 01/11/20 24 Active lisinopril 10 MG tabletIndications:Pr imary hypertension TAKE ONE TABLET EVERY MORNING 90 tablet 3 01/11/20 24 Active montelukast (Singulair) 10 MG tablet TAKE ONE TABLET EVERY EVENING 90 tablet 3 05/20/20 24 Active omeprazole (PriLOSEC) [address] capsule TAKE ONE CAPSULE DAILY BEFORE A MEAL 90 capsule 3 05/20/20 24 Active Proventil HFA 108 (90 Base) MCG/ACT inhaler INHALE TWO PUFFS EVERY 4 TO 6 HOURS NEEDED 6.7 g 11 05/28/20 24 Active Asmanex, 120 Metered Doses, 220 MCG/ACT aerosol powder INHALE ONE PUFF TWICE DAILY, RINSE MOUTH AFTER USE 1 each 3 08/20/20 24 Active atenolol (Tenormin) 50 MG tabletIndications:Pr imary hypertension TAKE ONE TABLET EVERY MORNING 90 tablet 2 12/10/19 25 Active hydroCHLOROthiazide (HYDRODiuril) 25 MG tabletIndications:Pr imary hypertension TAKE ONE TABLET BY MOUTH EVERY MORNING 90 tablet 3 01/31/20 25 Active hydroCHLOROthiazide (HYDRODiuril) 25 MG tabletIndications:Pr imary hypertension TAKE ONE TABLET BY MOUTH EVERY MORNING 90 tablet 3 01/11/20 24 2024 Discontinued Active Problems Problem Noted Date Diagnosed Date Mixed hyperlipidemia 08/16/2023 Assessment & Plan (01/12/2025 2:27 PM EDT): On statin therapy, new labs ordered for guidance of therapy Assessment & Plan (10/14/2024 11:00 AM EST): Controlled, continue statin therapy, encouraged weight loss/exercise, follow up in 3 months Assessment & Plan (08/16/2023 3:18 PM EST): On atorvastatin, no changes will be made, last labs don on 04/2023 Primary hypertension 05/14/2023 Assessment & Plan (01/12/2025 2:26 PM EDT): Controlled, keep low sodium diet and exercise as tolerated, continue bp log, target <140/90, no changes will be made, new labs ordered Assessment & Plan (10/14/2024 10:52 AM EST): [...] cancer screening 05/14/2023 Colon cancer screening 05/14/2023 Assessment & Plan (01/12/2025 2:03 PM EDT): Done on May 2024 due in 5 year 2 polyps were removed Screening for STD (sexually transmitted disease) 05/14/2023 Encounters Date Type Department Care Team Description 01/30/2025 Telephone [facility]IC[facility] [address] [place] [address] Shon Sorensen MD Nurse Triage 01/30/2025 Refill [facility] MED [facility] PEDS [address] [place] [address] Shon Sorensen MD Mixed hyperglyceridemia 01/28/2025 Refill [facility] MED [facility] PEDS [address] [place] [address] Shon Sorensen MD Primary hypertension 01/12/2025 1:45 PM EDT Telemedicine [facility] MED [facility] PED[facility] [address] [place] [address] Shon Sorensen MD Primary hypertension (Primary Dx); Colon cancer screening; Mixed hyperlipidemia 01/12/2025 Travel 01/05/2025 Travel 12/09/2024 Refill [facility] MED [facility] PEDS [address] [place] [address] Shon Sorensen MD Primary hypertension 11/28/2024 Population Health Risk Score [facility] Department [address] [phone] Provider, Population Health Generic from Last 3 Months Social History Tobacco [...] Sign Reading Time Taken Comments Blood Pressure 121/86 01/12/2025 1:57 PM EDT Pulse 66 02/21/2024 1:00 PM EDT Temperature [...] Upcoming Encounters Date Type Department Care Team ([facility] st Contact Info) Description 04/14/2025 10:15 AM EDT Telemedicine [facility] MED [facility] PEDS [address] [place] [address] Shon Sorensen MD [address] [place] [address] Health Maintenance Due Date Last Done Comments CT Colonography 1971 FIT DNA/Cologuard 1971 FIT 1971 FOBT 1971 Sigmoidoscopy 1971 Pneumococcal Vaccine: 50+ Years (3 of 3 - PCV20 or PCV21) 2021 06/25/2013, 06/25/2013 Zoster Vaccines (1 of 2) 2021 DTaP/Tdap/Td Vaccines (2 - Td or Tdap) 07/16/2023 07/16/2013 SDOH Screening 05/14/2024 05/14/2023 Tobacco Screening 06/09/2025 06/09/2024 Alcohol/Substance Use Screening 01/12/2026 01/12/2025 Depression Screening 01/12/2026 01/12/2025, 01/13/20 25 Colonoscopy 05/18/2029 Colorectal Cancer Screening 05/18/2029 Lipid Panel 06/17/2029 06/17/2024, 03/0 12/2023, 05/15/2023, Additional history exists HIV Screening 05/15/2033 RSV Patients and Patients Aged 60 years [...] patient's age to complete this topic Meningococcal B Vaccine Aged Out No l onger eligible based on patient's age to complete [...] 8:46 AM EDT) Triglycerides 120 <150 mg/dL [facility] Comment:Desirable Triglyceri de: less than 150 mg/dLBorderline High Triglyceride 150-199 mg/dLHigh Triglyceride: 200-499 mg/dLVery High Triglyceride: greater than or equal to 5OO mg/dL Cholesterol 133 <200 mg/dL [facility] Comment:Desirable Cholestero l: less than 200 mg/dLBorderline High Cholesterol: 200-239 mg/dLHigh Cholesterol: greater than 239 mg/dL LDL Cholesterol Calculated 65 <100 mg/dL [facility] Comment:Desirable LDL: less than 100 mg/dLNear Optimal/Above Optimal LDL: 110- 129 mg/dLBorderline High LDL: 130-159 mg/dLHigh LDL: 160-189 mg/dLVery High LDL: greater than or equal to 190 mg/dL HDL Cholesterol 44 >40 mg/dL [facility] Comment:Desirable HDL: great er than 40 mg/dL Note: This HDL assay may give artificially low results in patients with liver disease. Blood Venous blood specimen / Unknown 06/17/2024 8:46 AM EDT 06/17/2024 2:13 PM EDT us Shon Velazquez MD LAB BLOOD ORDERABL ES Final Result Performing Organization Address [facility]/ZIP Co de Phone Number [facility] [address] [place] [phone] * Hepatitis C Antibody Reflex (05/15/2023 9:48 AM EDT) Hepatitis C Antibody Nonreactive Nonreactive [facility] Comment:Antibodies to HCV no t detected; does not exclude early acuteHCV infection. 05/15/2023 9:48 AM EDT 05/15/2023 2:32 PM EDT us Shon Velazquez MD LAB BLOOD ORDERABL ES Final Result Performing Organization Address [facility] Co de Phone Number [facility] [address] [place] [phone] from Last 3 Months or Most Recently Relevant to Health Maintenance Insurance [facility] C3 Care Teams Proof Plate Maker Relationship Specialty Start Date End Date AparicioShon Pimentel MD [address] [place] [address] JOSEPH Rivera [phone] PCP - General Internal Medicine 01/26/20
--- OUTSIDE RECORDS SUMMARY | 2025-01-30 12:27 | XMS_ITS | Encounter Summary ---
Author Organization [employer] Address [address] [place] [address] [facility] [place] [address] Care Team Providers Care Multiple Pressure Riveter Operator Name Role Phone Shon Sorensen MD Primary Care Prov ider Encounter Details Date Type Department Care Team (Late Contact Info) Description 08/22/2022 Telephone [facility] MED[facility] [address] [place] [address] Shon Sorensen MD [address] [place] [address] Social History Tobacco Use Types Packs/Day Years [...] Department Care Team (Late Contact Info) Description 04/14/2025 10:15 AM EDT Telemedicine [facility] MED & PEDS [address] [place] [address] Shon Sorensen MD [address] [place], [place] [phone] documented as of this encounter Visit Diagnoses Not on filedocumented in this encounter Care Teams Multiple Pressure Riveter Operator Relationship Specialty Start Date End Date Shon Sorensen MD [address] [place] [address] PCP - General Internal Medicine 01/26/20 documented as of this encounter
--- NOTE | 2025-01-30 12:35 | ED_ITS ---
HPI - Animal Bite General Chief Complaint: Animal Bite Stated Complaint: Dog Bite 01/25/25 Time Seen by Provider: 01/30/25 12:12 Source: patient Mode of arrival: ambulatory Limitations: no limitations History of Present Illness ED Provider: Sara Rashid NP HPI narrative: patient is a 54-year-old male Who presents emergency department for evaluation. He reports that he was working Sunday, 5 days ago, is a mail sorter and delivery, when he was bit by a dog in his right hand as well as his right lower leg. Evidently the museum informatics specialist was present, and had endorse that the dog was up-to-date on vaccinations as of 2 months ago but patient did not see proof of this. Police nor animal control were contacted regarding this event. He states that since talking to friends and coworkers about this, with previously had infected wounds from a dog bite he was advised that he should seek evaluation thus prompting him coming to emergency department. He also states he has been experiencing some early flu-like symptoms over the past few days headache, and fatigue. Denies any dizziness, lightheadedness, vision changes, neck pain or neck stiffness, muscle spasms or tremors, purulent discharge from any of the wounds Related Data Home Medications ?Medication ?Instructions ?Recorded ?Confirmed albuterol sulfate 90 mcg/actuation 2 puff inhalation Q4-6H PRN 06/30/21 01/12/25 aerosol inhaler (ProAir HFA) atenolol 50 mg tablet 50 mg PO DAILY 06/30/21 01/12/25 fexofenadine 180 mg tablet 180 mg PO DAILY 06/30/21 01/12/25 (Tonia Allergy) fluticasone propionate 220 1 puff inhalation BID 06/30/21 01/12/25 mcg/actuation HFA aerosol inhaler (Flovent HFA) lisinopril 10 mg tablet 10 mg PO DAILY 06/30/21 01/12/25 montelukast 10 mg tablet 10 mg PO QPM 06/30/21 01/12/25 omeprazole 20 mg capsule,delayed 20 mg PO QAM 06/30/21 01/12/25 release atorvastatin 10 mg tablet 10 mg PO DAILY 10/24/23 01/12/25 hydrochlorothiazide 25 mg tablet 25 mg PO QAM 09/08/24 01/12/25 mometasone 220 mcg/actuation(120 1 inh inhalation BID 12/23/24 04/28/25 doses)breath activated powder inhaler (Asmanex Twisthaler) Previous Rx's ?Medication ?Instructions ?Recorded amoxicillin 875 mg-potassium 1 tab PO BID #13 tabs 01/30/25 clavulanate 125 mg tablet Allergies Allergy/AdvReac Type Severity Reaction Status Date / Time house dust Allergy Mild unknown Verified 01/30/25 11:01 mold Allergy Mild Unknown Verified 01/30/25 11:01 pollen extracts Allergy Mild unknown Verified 01/30/25 11:01 Review of Systems Review of Systems: Yes all other systems are reviewed and are negative [facility] Past Medical History Attestation statement: The following information was validated with the patient. Source: old records reviewed Medical History Animal bite of calf Hypercholesteremia Joint swelling Hypertension Surgical History Hx of colonoscopy History of esophagogastroduodenoscopy (EGD) No pertinent past surgical history Family History Family History Father No problems noted. Mother No problems noted. Social History Social History Household Members Other:: lives alone Alcohol intake: never Patient Tobacco Use Status: Never used Tobacco Advance Directives: No Advance Directives Information Provided: Yes Do you have a plan to hurt others: No Plan Current occupational status: unemployed Current occupation: Research Physical Exam ED Vital Signs: Vital Signs - 24 hr 01/30/25 10:58 01/30/25 14:44 01/30/25 16:35 Temperature 97.6 F 97.6 F Pulse Rate 71 60 58 Respiratory Rate 18 18 18 Blood Pressure 151/90 H 144/80 H 141/82 H Pulse Oximetry 99 98 99 Oxygen Delivery Method Room Air Room Air Room Air 01/30/25 16:38 Temperature 97.6 F Pulse Rate 58 Respiratory Rate 18 Blood Pressure 141/82 H Pulse Oximetry 99 Oxygen Delivery Method Room Air BMI result Body Mass Index 29.0 Appearance: Alert.?Oriented to person, place and time. No acute distress.?Normal affect. Eyes: Pupils equal, round and reactive to light.? ENT: Pharynx normal.?? Neck: Normal inspection.? Neck supple.?? CVS: Heart sounds normal. Normal heart rate and rhythm.? Pulses normal.?? Respiratory: No respiratory distress.? Lung sounds clear to auscultation bilaterally?? Abdomen: Soft and non-tender. Normoactive bowel sounds. Skin: Skin warm and dry.? Normal skin color.? 2 linear superficial abrasions to the distal right forearm. Reported puncture bite steve to the dorsum of the right hand, no active bleeding or purulence, no fluctuance, mild surrounding erythema with scab Center. Right distal lateral lower extremity reported puncture bite with mild surrounding erythema, no fluctuance, scabbed center. Extremities: No lower extremity edema.? No calf ttp? Neuro: Moves all extremities spontaneously. Sensation intact bilaterally. CN II- XII intact. No focal neuro deficits. Ambulates with normal steady gait. Medications Administered Discontinued Medications Generic Name Dose Route Start Last Admin Trade Name Freq PRN Reason Stop Dose Admin Amoxicillin/Clavulanate Potassium 875 mg 01/30/25 13:21 01/30/25 13:55 Amoxicillin/Potassium Clav 875 Mg Tablet PO 01/30/25 13:22 875 mg ONCE ONE Administration Diphtheria/Tetanus/Acell Pertussis 0.5 ml 01/30/25 13:16 01/30/25 13:46 Diphth,Pertus(Acell),Tet Adult 0.5 Ml Syringe IM 01/30/25 13:17 0.5 ml .ONCE ONE Administration Rabies Immune Globulin 1,886.94 unit 01/30/25 13:16 01/30/25 13:54 Rabies Immune Globulin/Pf 900 Unit/3 Ml Vial 20 unit/kg (1886.94 unit) 01/30/25 13:17 1,886.94 unit IM Administration ONCE ONE Rabies Vaccine 1 ml 01/30/25 13:16 01/30/25 13:49 Rabies Vaccine (Pcec)/Pf 1 Ml Vial IM 01/30/25 13:17 1 ml .ONCE ONE Administration Medical Decision Making Medical Decision Making MDM Narrative: Patient is a 54-year-old male with past medical history of hypertension, asthma, GERD presenting to emergency department for evaluation of dog bite/ scratch as per HPI. overall well-appearing, nontoxic, afebrile, presenting for evaluation of dog bite/ scratch to the right upper and lower extremity as per HPI. Wounds appear superficial in nature, particularly the wound on the right distal lateral lower extremity appears to have mild surrounding cellulitis but no evidence of abscess. Reviewed course of antibiotic treatment including localized wound care with topical bacitracin and Augmentin of which you received the 1st dose in the emergency department. We reviewed indications for rabies im mune globulin and vaccination, patient is electing for treatment as he does not have proof of vaccination status of the animal. Tetanus vaccine to be updated today as he reports his last one has been greater than 5 years. He admits that he can sometimes experience allergies, he is not certain whether his a mild headache and fatigue secondary to this versus any viral type illness, he is amenable to having COVID- 19/influenza / RSV testing obtained; which resulted as Negative. Differential Diagnosis Differential Diagnoses: The differential diagnosis associated with the presentation includes ( see narrative above) Lab Data MDM Lab Attestation statement: I reviewed the patient's lab results. Labs: Lab Results 01/30/25 Range/Units 14:43 Influenza Type A (PCR) NEGATIVE (Negative) Influenza Type B (PCR) NEGATIVE (Negative) RSV RNA Qual (PCR) NEGATIVE (Negative) SARS-CoV-2 RNA (RT-PCR) NEGATIVE (Negative) External Record Review External record reviewed: Outpatient record Chronic Conditions Patient?s care impacted by: Other ( see narrative above) Discharge Plan Discharge Clinical Impression: Dog bite Patient Disposition: Home, Self-Care Instructions: Animal Bite (ED) Additional Instructions: you were seen in the emergency department for evaluation after a dog bite that occurred earlier in the week. You have been started on a course of antibiotics, please complete the entire c ourse not skipped any doses abstract early even if you begin to feel better. Your tetanus vaccine was updated today. You received rabies immune globulin as well as the 1st dose of your rabies vacc ine series. Rabies follow up with the [facility]: Upon discharge from the ED today, you will be contacted by the Infusion Center to schedule your follow up Rabies vaccines. You will need a total of 3 more injections. If for some reason you do not receive a call, please call the Infusion Center directly at [phone]. Follow up with your primary care provider after completion of the vaccine to have a titer drawn to ensure the vaccines effectiveness. Prescriptions: New amoxicillin-pot clavulanate 875-125 mg tablet 1 tab PO BID Qty: 13 0RF No Action atenolol 50 mg tablet 50 mg PO DAILY montelukast 10 mg tablet 10 mg PO QPM Flovent HFA 220 mcg/actuation HFA aerosol inhaler 1 puff inhalation BID lisinopril 10 mg tablet 10 mg PO DAILY omeprazole 20 mg capsule,delayed release(DR/EC) 20 mg PO QAM albuterol sulfate [ProAir HFA] 90 mcg/actuation HFA aerosol inhaler 2 puff inhalation Q4-6H PRN fexofenadine [Tonia Allergy] 180 mg tablet 180 mg PO DAILY Asmanex Twisthaler 220 mcg/ actuation (120) aerosol powdr breath activated 1 inh inhalation BID hydrochlorothiazide 25 mg tablet 25 mg PO QAM atorvastatin 10 mg tablet 10 mg PO DAILY Referrals: Shon Sorensen MD [Primary Care Provider] - Interventions: ED Discharge Assessment Last Done: 01/30/25 16:38 Discharge Date/Time: 01/30/25 16:39 Print Language: Bahraini
[2025-01-30] MEDS: Diphth,Pertus(ACell),Tet Adult 0.5 ML SYRINGE IM (13:46)
[2025-01-30] MEDS: Rabies Vaccine (PCEC)/PF 1 ML VIAL IM (13:49)
[2025-01-30] MEDS: Rabies Immune Globulin/PF 900 UNIT/3 ML VIAL 1886.94 UNIT IM (13:54)
[2025-01-30] MEDS: Amoxicillin/Potassium Clav 875 MG TABLET PO (13:55)
[2025-01-30 14:44] VITALS: BP 144/80; PULSE 60; RESP 18; O2SAT 98
[2025-01-30 15:44] LABS: Influenza A PCR NEGATIVE (Negative); Influenza B PCR NEGATIVE (Negative); Resp Syncy Virus RNA Qual PCR NEGATIVE (Negative); SARS COV2 PCR INHOUSE NEGATIVE (Negative)
[2025-01-30 16:35] VITALS: BP 141/82; PULSE 58; RESP 18; TEMP 36.4; O2SAT 99
[2025-01-30 16:38] VITALS: BP 141/82; PULSE 58; RESP 18; TEMP 36.4; O2SAT 99
== END 2025-01-30 16:39 | disposition home or self-care (01) ==
PROVIDERS: Nurse Practitioner Family; Emergency Provider Emergency Medicine Emergency Medical Services; PCP Internal Medicine
DX: S61.451A Open bite of right hand, initial encounter (principal); S81.851A Open bite, right lower leg, initial encounter; W54.0XXA Bitten by dog, initial encounter; R51.9 Headache, unspecified; I10 Essential (primary) hypertension; E78.00 Pure hypercholesterolemia, unspecified; Y93.89 Activity, other specified; Y92.480 Sidewalk as the place of occurrence of the external cause; Y99.9 Unspecified external cause status; Z23 Encounter for immunization; Z20.3 Contact with and (suspected) exposure to rabies; Z03.818 Encounter for observation for suspected exposure to other biological agents ruled out
CPT/HCPCS: 0241U; 90375; 90471; 90472; 90675; 90715; 96372; 99283; 99284

== ENCOUNTER 2025-02-03 10:02 | Outpatient (REF) | payer MEDICAID, SELFPAY ==
--- OUTSIDE RECORDS SUMMARY | 2025-02-03 11:15 | XMS_ITS | Clinical Summary ---
Author Organization [employer] Address [address] [place] [address] Street 7[address] [place] [address] Care Team Providers Care Solar Designer/Installer Name Role Phone Shon Sorensen MD Primary Care Prov ider Allergies No known active allergies Medications lisinopril 10 MG tabletIndications:Pr imary hypertension TAKE [...] MORNING 90 tablet 3 01/31/20 25 Active atorvastatin (Lipitor) 10 MG tabletIndications:Mi xed hyperglyceridemia TAKE ONE TABLET BY MOUTH EVERY DAY 90 tablet 3 02/03/20 25 Active hydroCHLOROthiazide (HYDRODiuril) 25 MG tabletIndications:Pr imary hypertension TAKE ONE TABLET BY MOUTH EVERY MORNING 90 tablet 3 01/11/20 24 2024 Discontinued atorvastatin (Lipitor) 10 MG tabletIndications:Mi xed hyperglyceridemia TAKE ONE TABLET DAILY 90 tablet 3 01/11/20 24 2024 Discontinued [...] Date Type Department Care Team Description 01/30/2025 Orders Only GENERIC EXTERNAL DATA DEPARTMENT Provider, Generic External Data 01/30/2025 Telephone [facility] [address] [place] [address] Shon Sorensen MD Nurse Triage 01/30/2025 Refill [facility] PEDS [address] [place] [address] Shon Sorensen MD Mixed hyperglyceridemia 01/28/2025 Refill [facility] [address] [place] [address] Shon Sorensen MD Primary hypertension 01/12/2025 1:45 PM EDT Telemedicine [facility] [address] [place] [address] Shon Sorensen MD Primary hypertension (Primary Dx); Colon cancer screening; Mixed hyperlipidemia 01/12/2025 Travel 01/05/2025 Travel 12/09/2024 Refill [facility] [address] [place] [address] Shon Sorensen MD Primary hypertension 11/28/2024 Population Health Risk Score [facility] Department [address] [place] [address] Provider, Population Health Generic from Last [...] Info) Description 04/14/2025 10:15 AM EDT Telemedicine [facility] MED & PEDS [address] [place] [address] Shon Sorensen MD [address] [place] [address] Health Maintenance Due Date Last Done Comments CT Colonography 1971 FIT DNA/Cologuard 1971 FIT 1971 FOBT 1971 Sigmoidoscopy 1971 Pneumococcal Vaccine: 50+ Years (3 of 3 - PCV20 or PCV21) 2021 06/25/2013, 06/25/2013 Zoster Vaccines (1 of 2) 2021 SDOH Screening 05/14/2024 05/14/2023 COVID-19 Vaccine ( - season) 2024 Tobacco Screening 06/09/2025 06/09/2024 Disability Screening 10/07/2025 10/07/2024 Alcohol/Substance Use Screening 01/12/2026 01/12/2025 Depression Screening 01/12/2026 01/12/2025, 01/13/20 25 Colonoscopy 05/18/2029 Colorectal Cancer Screening 05/18/2029 Lipid Panel 06/17/2029 06/17/2024, 03/0 12/2023, 05/15/2023, Additional history exists HIV Screening 05/15/2033 DTaP/Tdap/Td Vaccines (3 - Td or Tdap) 01/30/2035 01/30/2025, 07/16/2013 RSV Patients and Patients Aged 60 years or older (1 - 1-dose 75+ series) 2046 Hepatitis B Vaccines Completed 10/16/2013, 07/16/2013, 06/11/2013 Hepatitis C Screening Completed 05/15/2023 Influenza Vaccine Completed 06/15/2024, , 07/05/2021, Additional [...] Procedure Name Priority Date/Time Associated Diagnosis Comments SARS COV2/INFLUENZA A/B AND RSV RNA QL NAAT Routine 01/30/2025 2:43 PM EDT LIPID PANEL, STANDARD Routine 06/17/2024 8:46 AM EDT Primary hypertension HEPATITIS C ANTIBODY REFLEX Routine 05/15/2023 9:48 AM EDT from Last 3 Months or Most Recently Relevant to Health Maintenance Results * SARS-CoV-2 RNA, Influenza A/B, and RSV RNA, Ql NAAT (01/30/2025 2:43 PM EDT) Influenza A PCR NEGATIVE Negative [facility] Influenza B PCR NEGATIVE Negative [facility] Resp Syncy Virus RNA Qual PCR NEGATIVE Negative [facility] SARS COV2 PCR NEGATIVE Negative [facility] Comment:All test results mus t be correlated with clinical findings.Negative results do not preclude SARS-CoV2, influenza Avirus, influenza B virus and/or RSV infectionand should not be used as the sole basis for treatment orother patient management decisions. Negative results must becombined with clinical observations, patient history, andepidemiological information.This test has not been evaluated for monitoring treatment ofinfection.This test has been authorized by the FDA under an EmergencyUse Authorization (EUA) for use by authorized laboratories.Testing performed on the [employer] GeneXpert utilizingreal-time RT-PCR.All SARS CoV2 and positive influenza A/B results arereported to [facility]. 01/30/2025 2:43 PM EDT 01/30/2025 2:51 PM EDT us Generic External Data Provider LAB MICROBIOLOGY - GENERAL ORDERABLES Final Result Performing Organization Address City/[facility]/ZIP Co de Phone Number [facility] [address] [place] [phone] * Lipid Panel, Standard (06/17/2024 8:46 AM EDT) Triglycerides 120 <150 mg/dL [facility] Comment:Desirable Triglyceri de: less than 150 mg/dLBorderline High Triglyceride 150-199 mg/dLHigh Triglyceride: 200-499 mg/dLVery High Triglyceride: greater than or equal to 5OO mg/dL Cholesterol 133 <200 mg/dL [facility] Comment:Desirable Cholestero l: less than 200 mg/dLBorderline High Cholesterol: 200-239 mg/dLHigh Cholesterol: greater than 239 mg/dL LDL Cholesterol Calculated 65 <100 mg/dL [facility] Comment:Desirable LDL: less than 100 mg/dLNear Optimal/Above Optimal LDL: 110- 129 mg/dLBorderline High LDL: 130-159 mg/dLHigh LDL: 160-189 mg/dLVery High LDL: greater than or equal to 190 mg/dL HDL Cholesterol 44 >40 mg/dL [facility] Comment:Desirable HDL: great er than 40 mg/dL Note: This HDL assay may give artificially low results in patients with liver disease. Blood Venous blood specimen / Unknown 06/17/2024 8:46 AM EDT 06/17/2024 2:13 PM EDT Shon Velazquez MD LAB BLOOD ORDERABL ES Final Result [facility] [address] [place] [phone] * Hepatitis C Antibody Reflex (05/15/2023 9:48 AM EDT) Hepatitis C Antibody Nonreactive Nonreactive [facility] Comment:Antibodies to HCV no t detected; does not exclude early acuteHCV infection. 05/15/2023 9:48 AM EDT 05/15/2023 2:32 PM EDT Shon Velazquez MD LAB BLOOD ORDERABL ES Final Result Performing Organization Address [facility] Co de Phone Number [facility] [address] [place] [phone] from Last 3 Months or Most Recently Relevant to Health Maintenance [facility] Care Teams Solar Designer/Installer Relationship Specialty Start Date End Date AparicioShon Pimentel MD [address] [place] [address] JOSEPH Rivera [phone] PCP - General Internal Medicine 01/26/20
--- OUTSIDE RECORDS SUMMARY | 2025-02-03 11:15 | XMS_ITS | Encounter Summary ---
Author Organization [employer] Address [address] [place] [address] Care Team Providers Care Starch Dumper Name Role Phone Shon Sorensen MD Primary Care Prov ider Encounter Details Date Type Department Care Team (Late Contact Info) Description 05/30/2023 Orders Only [facility] MED & PEDS [address] [place], [place] [phone] Dorinda Kessler LPN Social History Tobacco Use [...] Info) Description 04/14/2025 10:15 AM EDT Telemedicine [facility] MED & PEDS [address] [place], [place] [phone] Shon Sorensen MD [address] [place] [address] documented as of this encounter Visit Diagnoses Not on filedocumented in this encounter Additional Health Concerns Assessment Noted Time PHQ-9 Depression Total Score: 0 05/14/20 23 1:03 PM EDT documented as of this encounter Care Teams Starch Dumper Relationship Specialty Start Date End Date Shon Sorensen MD [address] [place] [phone] PCP - General Internal Medicine 01/26/20 documented as of this encounter
--- OUTSIDE RECORDS SUMMARY | 2025-02-03 11:15 | XMS_ITS | Encounter Summary ---
Author Organization [employer] Address [address] [place] [address] [address], [place] [address] Care Team Providers Care Medical Billing Representative Name Role Phone Shon Sorensen MD Primary Care Prov ider Encounter Details Date Type Department Care Team (Late st Contact Info) Description 09/14/2022 Orders Only [facility] MED & PEDS [address] [place] [address] Anh Correa RN [address] [place] [address] Social History Tobacco Use Types Packs/Day Years [...] 04/14/2025 10:15 AM EDT Telemedicine [facility] PED[facility] [address] [place] [address] Shon Sorensen MD [address] [place] [address] documented as of this encounter Procedures Procedure [...] Immunoglobulin G 1018 600 - 1640 mg/dL [facility] Comment:THIS TEST WAS PERFOR MED AT:[facility] [address] [id number] MONCADA MD 05/15/2023 9:48 AM EDT 05/15/2023 2:32 PM EDT Shon Velazquez MD LAB BLOOD ORDERABL ES Final Result Performing Organization Address [facility] Co de Phone Number [facility] [address] [place] [phone] * DNA (ds) Antibody (05/15/2023 9:48 AM EDT) Pathologist [facility] Anti DNA DS Antibody <1 IU/mL [facility] Comment:IU/mL Interpretation < or = 4 Negative 5-9 Indeterminate > or = 10 PositiveTHIS TEST WAS PERFORMED AT:[facility] [address] [id number] MONCADA MD 05/15/2023 9:48 AM EDT 05/15/2023 2:32 PM EDT Shon Velazquez MD LAB BLOOD ORDERABL ES Final Result Performing Organization Address City/[facility]/ZIP Co de Phone Number [facility] [address] [place] [phone] * Hepatitis C Antibody Reflex (05/15/2023 9:48 AM EDT) Pathologist [facility] Hepatitis C Antibody Nonreactive Nonreactive [facility] Comment:Antibodies to HCV no t detected; does not exclude early acuteHCV infection. 05/15/2023 9:48 AM EDT 05/15/2023 2:32 PM EDT us Shon Velazquez MD LAB BLOOD ORDERABL ES Final Result [facility] [address] [place], [place] [phone] * (ABNORMAL) Comprehensive Metabolic Panel, Fasting (05/15/2023 9:48 AM EDT) Sodium 140 135 - 145 mmol/L [facility] Potassium 4.1 3.3 - 5.1 mmol/L [facility] Chloride 105 96 - 108 mmol/L [facility] Carbon Dioxide 27 22 - 29 mmol/L [facility] Anion Gap 12 12 - 20 [facility] Urea Nitrogen (BUN) 9 9 - 16 mg/dL [facility] Creatinine, Serum 0.95 0.5 - 1.4 mg/dL [facility] Estimated Glomerular Filt Rate >60 [facility] Comment:NOTE: For -Am erican individuals, multiply the result by 1.210.Chronic Kidney Disease: Estimated GFR < 60 mL/min/1.13w2Vnwclv Kidney Disease: Estimated GFR < 15 mL/min/1.73m2 Glucose Fasting 94 60 - 99 mg/dL [facility] Calcium 9.7 8.4 - 10.2 mg/dL [facility] Bilirubin, Total 0.9 0.0 - 1.0 mg/dL [facility] Aspartate Amino Transferase 23 5 - 37 U/L [facility] Alanine Aminotransferase 46(H) 0 - 40 U/L [facility] Total Protein 7.3 6.5 - 8.0 g/dL [facility] Albumin Level 4.5 3.5 - 5.0 g/dL [facility] Alkaline Phosphatase 86 39 - 117 U/L [facility] 05/15/2023 9:48 AM EDT 05/15/2023 2:32 PM EDT us Shon Velazquez MD LAB BLOOD ORDERABL ES Final Result [facility] [address] [place] [phone] documented in this encounter Visit Diagnoses Not on filedocumented in this encounter Care Teams Medical Billing Representative Relationship Specialty Start Date End Date Shon Sorensen MD [address] [place] [phone] PCP - General Internal Medicine 01/26/20 documented as of this encounter
--- OUTSIDE RECORDS SUMMARY | 2025-02-03 11:15 | XMS_ITS | Encounter Summary ---
Author Organization [employer] Address [address] [facility] 7 [place] [address] Care Team Providers Care Blower Blast Furnace Name Role Phone Shon Sorensen MD Primary Care Prov ider Reason for Visit * Reason Comments Med Refill Encounter Details Date Type Department Care Team ([facility] st Contact Info) Description 01/28/2025 Refill [facility] MED & PEDS [address] [place], [place] [phone] Shon Sorensen MD [address] [place] [address] Primary hypertension Social History Tobacco Use Types [...] 04/14/2025 10:15 AM EDT Telemedicine [facility] MED & PEDS [address] [place] [address] Shon Sorensen MD [address] [place] [address] documented as of this encounter Visit Diagnoses Diagnosis Primary hypertension Unspecified essential hypertension documented in this encounter Additional Health Concerns Assessment Noted Time PHQ-9 Depression Total Score: 0 01/13/20 25 1:41 PM EDT documented as of this encounter Care Teams Blower Blast Furnace Relationship Specialty Start Date End Date Shon Sorensen MD [address] [place] [address] PCP - General Internal Medicine 01/26/20 documented as of this encounter
--- OUTSIDE RECORDS SUMMARY | 2025-02-03 11:15 | XMS_ITS | Encounter Summary ---
Author Organization [employer] Address [address] [facility] [address] [place] [address] Care Team Providers Care Army Officer Name Role Phone Shon Sorensen MD Primary Care Prov ider Encounter Details Date Type Department Care Team (Late st Contact Info) Description 01/30/2025 Orders Only GENERIC EXTERNAL DATA DEPARTMENT Provider, Generic External Data Social History Tobacco Use Types Packs/Day Years [...] is your housing situation today? I have raghugareth biswas 07/05/[address] you [...] Info) Description 04/14/2025 10:15 AM EDT Telemedicine [facility] PEDS [address] [place] [address] Shon Sorensen MD [address] [place] [address] documented as of this encounter Procedures Procedure Name Priority Date/Time Associated Diagnosis Comments SARS COV2/INFLUENZA A/B AND RSV RNA QL NAAT Routine 01/30/2025 2:43 PM EDT documented in this encounter Results * SARS-CoV-2 RNA, Influenza A/B, and RSV RNA, Ql NAAT (01/30/2025 2:43 PM EDT) Influenza A PCR NEGATIVE Negative [facility] Influenza B PCR NEGATIVE Negative [facility] Resp Syncy Virus RNA Qual PCR NEGATIVE Negative [facility] SARS COV2 PCR NEGATIVE Negative [facility] Comment:All test results mus t [...] use by authorized laboratories.Testing performed on the [employer] GeneXpert utilizingreal-time RT-PCR.All SARS CoV2 and positive influenza A/B results arereported to [facility]. 01/30/2025 2:43 PM EDT 01/30/2025 2:51 PM EDT us Generic External Data Provider LAB MICROBIOLOGY - GENERAL ORDERABLES Final Result [facility] [address] [place] [phone] documented in this encounter Visit Diagnoses Not on filedocumented in this encounter Additional Health Concerns Assessment Noted Time PHQ-9 Depression Total Score: 0 01/13/20 25 1:41 PM EDT documented as of this encounter Care Teams Army Officer Relationship Specialty Start Date End Date Shon Sorensen MD [address] [place] [phone] PCP - General Internal Medicine 01/26/20 documented as of this encounter
--- OUTSIDE RECORDS SUMMARY | 2025-02-03 11:15 | XMS_ITS | Encounter Summary ---
Author Organization [employer] Address [address] [facility] 7 [place] [address] Care Team Providers Care Junior Java Developer Name Role Phone Shon Sorensen MD Primary Care Prov ider Reason for Visit * Reason Comments Med Refill Encounter Details Date Type Department Care Team ([facility] Contact Info) Description 01/30/2025 Refill [facility] MED [facility] PEDS [address] [place], [place] [phone] Shon Sorensen MD [address] [place] [address] Mixed hyperglyceridemia Social History Tobacco Use Types [...] [facility] MED [facility] PEDS [address] [place] [address] Shon Sorensen MD [address] [place] [address] documented as of this encounter Visit Diagnoses 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
--- OUTSIDE RECORDS SUMMARY | 2025-02-03 11:15 | XMS_ITS | Encounter Summary ---
Author Organization [employer] Address [address] [place] [address] Care Team Providers Care Welder Railcar Mechanic Name Role Phone Shon Sorensen MD Primary Care Prov ider Encounter Details Date Type Department Care Team (Late Contact Info) Description 08/22/2022 Telephone [facility] [address] [place] [address] Shon Sorensen MD [address] [place] [address] Social History Tobacco Use Types Packs/Day Years [...] Info) Description 04/14/2025 10:15 AM EDT Telemedicine [facility] MED [facility] PEDS [address] [place] [address] Shon Sorensen MD [address] [place], [place] [phone] documented as of this encounter Visit Diagnoses Not on filedocumented in this encounter Care Teams Welder Railcar Mechanic Relationship Specialty Start Date End Date Shon Sorensen MD [address] [place] [address] PCP - General Internal Medicine 01/26/20 documented as of this encounter
--- OUTSIDE RECORDS SUMMARY | 2025-02-03 11:15 | XMS_ITS | Encounter Summary ---
Author Organization [employer] Address 75 [facility] 7 [place] [address] Care Team Providers Care Global Logistics Analyst Name Role Phone Shon Sorensen MD Primary Care Prov ider Reason for Visit * Reason Onset Date Comments Nurse Triage 01/30/2025 Encounter Details Date Type Department Care Team ([facility] st Contact Info) Description 01/30/2025 Telephone [facility] [address] [place] [address] Shon Sorensen MD [address] [place] [address] Nurse Triage Social History Tobacco Use Types [...] encounter Miscellaneous Notes * Telephone Encounter - Rashmi Cueto RN - 02/02/2025 10:27 AM EDT Patient stated the bites were looking better. He stated they gave him antibiotics, a tetanus shot, and started him on rabies series. Instructed patient to return to ER if bites look infected again. Patient stated understanding and verbally agreed with plan. * Telephone Encounter - Jesica Mcnamara RN - 01/30/2025 10:35 AM EDT Call returned to Raul Sigala to triage below. Reports having two dog bites that occurred on Sunday night. Per pt dedicated owner operator said that papers were good . Per pt has one on hand and one above ankle. Pt does not have any discharge or bleeding. Redness and swelling around bite holliday. Tender to touch.Pt advised of disposition, agrees to seek [facility] ER now for exam. Reviewed home care advise, ER precautions and reasons to call back. Sent to team for [facility] ER status check PRN. Protocol Used: Animal [...] become worse * Telephone Encounter - Zoe Linden Law - 01/30/2025 10:15 AM EDT Symptom: Animal Bite (Dog, pt states looks infected) Outcome: Schedule an urgent appointment (within 1 hour) or talk to a nurse or provider soon Reason: Bite broke the skin (cut, puncture, or scratch) The caller accepted this outcome. [phone] documented in this encounter Plan of Treatment Upcoming Encounters Date Type Department Care Team (Late st Contact Info) Description 04/14/2025 10:15 AM EDT Telemedicine [facility] MED & PEDS [address] [place] [address] Shon Sorensen MD [address] [place] [address] documented as of this encounter Visit Diagnoses Not on filedocumented in this encounter Additional Health Concerns Assessment Noted Time PHQ-9 Depression Total Score: 0 01/13/20 25 1:41 PM EDT documented as of this encounter Care Teams Global Logistics Analyst Relationship Specialty Start Date End Date Shon Sorensen MD [address] [place] [address] PCP - General Internal Medicine 01/26/20 documented as of this encounter
--- OUTSIDE RECORDS SUMMARY | 2025-02-03 11:15 | XMS_ITS | Encounter Summary ---
Author Organization [employer] Address [address] [place] [address] [address] [place] [address] Care Team Providers Care Set And Exhibit Designer Name Role Phone Shon Sorensen MD Primary Care Prov ider Encounter Details Date Type Department Care Team (Latest Contact Info) Description 06/13/2019 Abstract [facility] Dental, Provider, DDS Social History [...] Info) Description 04/14/2025 10:15 AM EDT Telemedicine [facility] MED & PEDS [address] [place] [address] Shon Sorensen MD [address] [place] [address] documented as of this encounter Visit Diagnoses Not on filedocumented in this encounter Care Teams Set And Exhibit Designer Relationship Specialty Start Date End Date Shon Sorensen MD [address] [place] [address] PCP - General Internal Medicine 01/26/20 documented as of this encounter
--- OUTSIDE RECORDS SUMMARY | 2025-02-03 11:15 | XMS_ITS | Encounter Summary ---
Author Organization [employer] Address [address] [facility] 7 [place] [address] Care Team Providers Care Brazing Machine Operator Helper Name Role Phone Shon Sorensen MD Primary Care Prov ider Reason for Visit * Reason Comments Med Refill Encounter Details Date Type Department Care Team ([facility] st Contact Info) Description 12/03/2023 Refill [facility] MED & PEDS [address] [place], [place] [phone] Shon Sorensen MD [address] [place] [address] Social History Tobacco Use Types Packs/Day Years [...] Info) Description 04/14/2025 10:15 AM EDT Telemedicine [facility] MED & PEDS [address] [place] [address] Shon Sorensen MD [address] [place] [address] documented as of this encounter Visit Diagnoses Not on filedocumented in this encounter Additional Health Concerns Assessment Noted Time PHQ-9 Depression Total Score: 0 05/14/20 23 1:03 PM EDT documented as of this encounter Care Teams Brazing Machine Operator Helper Relationship Specialty Start Date End Date Shon Sorensen MD [address] [place] [address] PCP - General Internal Medicine 01/26/20 documented as of this encounter
[2025-02-03 14:19] LABS: MANUAL DIFF FLAG NO
[2025-02-03 14:29] LABS: Basophils Percent Auto 0.7 % (0-2); Eosinophils Absolute Auto 0.2 X10*3/uL (0.0-0.4); Hematocrit 43.8 % (42.0-52.0); Hemoglobin 13.9 g/dl (14.0-18.0); Lymphocytes Percent Auto 21.9 % (20-40); Mean Corpuscular HGB Conc 31.7 g/dl (31.0-36.0); Mean Corpuscular Hemoglobin 26.2 pg (27.0-33.0); Mean Corpuscular Volume 82.6 fL (80.0-98.0); Mean Platelet Volume 10.2 fL (9.4-12.4); Monocytes Absolute Auto 0.4 X10*3/uL (0.1-1.2); Neutrophils Absolute Auto 2.7 x10*3/uL (2.0-8.3); Neutrophils Percent Auto 62.4 % (45-73); Platelet Count 183 X10*3/uL (160-400); Red Cell Distribution Width 13.3 % (11.0-16.0); White Blood Count 4.4 X10*3/uL (4.8-10.8)
[2025-02-03 14:39] LABS: Alanine Aminotransferase 26 U/L (0-40); Albumin Level 4.4 g/dL (3.5-5.0); Alkaline Phosphatase 74 U/L (39-117); Anion Gap 9 (12-20); Aspartate Amino Transferase 25 U/L (5-37); Bilirubin Total 0.7 mg/dL (0.0-1.0); Blood Urea Nitrogen 14 mg/dL (9-16); C Reactive Protein 0.19 mg/dL (< or = 0.50); Calcium 9.4 mg/dL (8.4-10.2); Carbon Dioxide 30 mmol/L (22-29); Chloride 105 mmol/L (96-108); Cholesterol 124 mg/dL (<200); Estimated Glomerular Filt Rate > 60; Glucose Random 107 mg/dL (60-115); HDL Cholesterol 46 mg/dL (>40); LDL Cholesterol Calculated 65 mg/dL (<100); Potassium 4.3 mmol/L (3.3-5.1); Sodium 140 mmol/L (135-145); Total Protein 7.1 g/dL (6.5-8.0); Triglycerides 66 mg/dL (<150)
== END 2025-02-03 10:03 | disposition home or self-care (01) ==
LOC: HO.CHCLDS 10:02
PROVIDERS: PCP Internal Medicine; Referring Provider Internal Medicine Gastroenterology; Visit Provider Internal Medicine
DX: K63.3 Ulcer of intestine (principal); I10 Essential (primary) hypertension
CPT/HCPCS: 36415; 80053; 80061; 85025; 86140

== ENCOUNTER 2025-02-13 10:15 | Outpatient (RCR) | payer MEDICAID, SELFPAY ==
[2025-02-02 14:04] VITALS: BP 155/91; PULSE 60; RESP 16; TEMP 36.6; O2SAT 98
[2025-02-02] MEDS: Rabies Vaccine (PCEC)/PF 1 ML VIAL IM (14:09)
[2025-02-06 10:23] VITALS: BP 145/91; PULSE 70; RESP 16; TEMP 36.9; O2SAT 99
[2025-02-06] MEDS: Rabies Vaccine (PCEC)/PF 1 ML VIAL IM (10:24)
[2025-02-13 10:19] VITALS: BP 135/83; PULSE 68; RESP 16; TEMP 36.7; O2SAT 99
[2025-02-13] MEDS: Rabies Vaccine (PCEC)/PF 1 ML VIAL IM (10:21)
== END 2025-02-13 10:26 | disposition home or self-care (01) ==
LOC: HO.INF 10:15
PROVIDERS: Visit Provider Nurse Practitioner Family
DX: Z20.3 Contact with and (suspected) exposure to rabies (principal); S81.859D Open bite, unspecified lower leg, subsequent encounter; W64.XXXD Exposure to other animate mechanical forces, subsequent encounter
CPT/HCPCS: 90471; 90675

== ENCOUNTER 2025-02-16 13:50 | Outpatient (REF) | payer MEDICAID, SELFPAY ==
--- OUTSIDE RECORDS SUMMARY | 2025-02-16 15:04 | XMS_ITS | Encounter Summary ---
Author Organization [employer] Address [address] [facility] 7 [place] [address] Care Team Providers Care Woodworker Helper Name Role Phone Shon Sorensen MD Primary Care Prov ider Reason for Visit * Reason Comments Med Refill Encounter Details Date Type Department Care Team ([facility] st Contact Info) Description 12/03/2023 Refill [facility] MED & PEDS [address] [place], [place] [phone] Shon Sorensen MD [address] [place] [address] Social History Tobacco Use Types Packs/Day Years [...] [facility] [address] [place] [address] Shon Sorensen MD [address] [place] [address] documented as of this encounter Visit Diagnoses Not on filedocumented in this encounter Additional Health Concerns Assessment Noted Time PHQ-9 Depression Total Score: 0 05/14/20 23 1:03 PM EDT documented as of this encounter Care Teams Woodworker Helper Relationship Specialty Start Date End Date Shon Sorensen MD [address] [place] [address] PCP - General Internal Medicine 01/26/20 documented as of this encounter
== END 2025-02-16 13:51 | disposition home or self-care (01) ==
LOC: HO.CT 13:50
PROVIDERS: PCP Internal Medicine; Visit Provider Internal Medicine Gastroenterology
DX: Z13.89 Encounter for screening for other disorder (principal)

== ENCOUNTER 2025-03-03 10:36 | Outpatient (REF) | payer MEDICAID, SELFPAY ==
--- OUTSIDE RECORDS SUMMARY | 2025-03-03 12:07 | XMS_ITS | Encounter Summary ---
Author Organization [employer] Address [address] [facility] 7 [place] [address] Care Team Providers Care Finisher Hand Name Role Phone Shon Sorensen MD Primary Care Prov ider Reason for Visit * Reason Comments Med Refill Encounter Details Date Type Department Care Team ([facility] st Contact Info) Description 12/03/2023 Refill [facility] MED & PEDS [address] [place], [place] [phone] Shon Sorensen MD 505 [place] [address] Social History Tobacco Use Types Packs/Day Years [...] Info) Description 04/14/2025 10:15 AM EDT Telemedicine [facility] MED [facility] PEDS [address] [place] [address] Shon Sorensen MD 505 [place] [address] documented as of this encounter Visit Diagnoses Not on filedocumented in this encounter Additional Health Concerns Assessment Noted Time PHQ-9 Depression Total Score: 0 05/14/20 23 1:03 PM EDT documented as of this encounter Care Teams Finisher Hand Relationship Specialty Start Date End Date Shon Sorensen MD [address] [place] [address] PCP - General Internal Medicine 01/26/20 documented as of this encounter
[2025-03-03 14:50] LABS: Alanine Aminotransferase 24 U/L (0-40); Albumin Level 4.5 g/dL (3.5-5.0); Alkaline Phosphatase 67 U/L (39-117); Anion Gap 12 (12-20); Aspartate Amino Transferase 21 U/L (5-37); Bilirubin Total 1.4 mg/dL (0.0-1.0); Blood Urea Nitrogen 12 mg/dL (9-16); Calcium 9.6 mg/dL (8.4-10.2); Carbon Dioxide 30 mmol/L (22-29); Chloride 103 mmol/L (96-108); Estimated Glomerular Filt Rate > 60; Glucose Random 95 mg/dL (60-115); Potassium 4.1 mmol/L (3.3-5.1); Sodium 141 mmol/L (135-145); Total Protein 6.8 g/dL (6.5-8.0)
== END 2025-03-03 10:37 | disposition home or self-care (01) ==
LOC: HO.CHCLDS 10:36
PROVIDERS: Visit Provider Internal Medicine Gastroenterology
DX: K75.81 Nonalcoholic steatohepatitis (NASH) (principal)
CPT/HCPCS: 36415; 80053

== ENCOUNTER 2025-03-16 14:26 | Outpatient (REF) | payer MEDICAID, SELFPAY ==
--- NOTE | ~2025-03-16 | CT_ITS ---
EXAMINATION: CT ENTEROGRAPHY ABDOMEN AND PELVIS WITH CONTRAST CLINICAL INFORMATION: R10.33 - Periumbilical pain; COMPARISON: CT abdomen June 23, 2024 TECHNIQUE: Study performed with oral VoLumen (1500 mL) and water to distend the abdomen. The patient was injected with 85 mL Omnipaque 350 intravenous contrast which was administered without adverse effect. Coronal and sagittal reformatted images were obtained at the technologist's workstation. This CT examination was performed using dose optimization techniques as appropriate, variously including the following: *Automated exposure control *Adjustment of mA and/or kV according to patient size (this includes techniques or standardized protocols for targeted exams where dose is matched to indication/reason for exam; i.e. extremities or head) *Use of iterative reconstruction technique FINDINGS: GASTROINTESTINAL FINDINGS: Stomach: Well-distended and normal in appearance. There is linear high density along the posterior wall of the gastric antrum and pylorus, likely postsurgical. Unchanged. Small intestine: Volumen did not traverse the distal third of the ileum. Otherwise, unremarkable exam. Large intestine: No visible lumen is reduced the colon. Ileum and appendix are within normal limits. Scattered pseudodiverticula are present in the right colon and transverse colon. Numerous pseudodiverticula are present in the splenic flexure, descending colon, and sigmoid colon. Abdominal wall: There is a very small fat-containing umbilical hernia. Additional findings: No abnormal enhancement of the vasa recta or significant mesenteric or retroperitoneal lymphadenopathy is seen. No ascites ABDOMINAL AND PELVIC CT FINDINGS: Liver, gallbladder, biliary tract: Unremarkable Pancreas: Unremarkable Spleen: Unremarkable Adrenal glands and kidneys: Unremarkable Too small to characterize hypodensities in the kidneys likely represent benign simple cysts. Ureters and bladder: Unremarkable Lymphovascular structures: No adenopathy Bones: Unremarkable Lung bases: 4 mm nodule is present in the lateral aspect left lower lobe. 3 x 7 mm pulmonary nodule is present in the subpleural region of the right middle lobe CT/CT enterography IMPRESSION: Stable postsurgical changes in the gastric antrum and pylorus. 2 small solid pulmonary nodules were demonstrated in the lung bases. No further follow-up is indicated per Fleischner Society recommendations, unless the patient falls into a high risk category, in which case a 12 month follow-up CT chest without contrast is optional. High risk patients includes those with a history of smoking, first-degree relative with lung cancer, or exposure to uranium, radon, or asbestos. Electronically signed by: Michele Mathew MD 03/16/2025 04:16 PM EDT
--- OUTSIDE RECORDS SUMMARY | 2025-03-16 14:56 | XMS_ITS | Encounter Summary ---
Author Organization [employer] Address [address] [facility] 7 [place] [address] Care Team Providers Care Human Resources Safety Manager Name Role Phone Shon Sorensen MD Primary Care Prov ider Reason for Visit * Reason Comments Med Refill Encounter Details Date Type Department Care Team ([facility] st Contact Info) Description 12/03/2023 Refill [facility] MED & PEDS [address] [place], [place] [phone] Shon Sorensen MD 505 [place] [address] Social History Tobacco Use Types Packs/Day Years [...] Info) Description 04/14/2025 10:15 AM EDT Telemedicine [facility] MED & PEDS [address] [place] [address] Shon Sorensen MD 505 [place] [address] documented as of this encounter Visit Diagnoses Not on filedocumented in this encounter Additional Health Concerns Assessment Noted Time PHQ-9 Depression Total Score: 0 05/14/20 23 1:03 PM EDT documented as of this encounter Care Teams Human Resources Safety Manager Relationship Specialty Start Date End Date Shon Sorensen MD [address] [place] [address] PCP - General Internal Medicine 01/26/20 documented as of this encounter
[2025-03-16] MEDS: iohexoL 350 MG/ML 100 ML INFUS..BTL 85 ML IV (15:40)
[2025-03-16] MEDS: Sorbitol/Mannit/Xanth Imaging 500 ML LIQUID 1500 ML PO (15:44)
== END 2025-03-16 14:27 | disposition home or self-care (01) ==
LOC: HO.CT 14:26
PROVIDERS: PCP Internal Medicine; Visit Provider Internal Medicine Gastroenterology
DX: R10.33 Periumbilical pain (principal)
CPT/HCPCS: 74177; Q9967

== ENCOUNTER → 2025-03-16 14:28 | Outpatient (BNV) | payer MEDICAID, SELFPAY | PROVIDERS: PCP Internal Medicine; Visit Provider Radiology Diagnostic Radiology | DX: R10.33 Periumbilical pain (principal); R91.8 Other nonspecific abnormal finding of lung field | CPT/HCPCS: 74177 ==

== ENCOUNTER 2025-07-06 15:12 | Outpatient (AMB) | payer MEDICAID, SELFPAY ==
--- NOTE | 2025-07-06 15:29 | A.OFFVIS_ITS ---
Vital Signs 07/06/25 15:31 Height 5 ft 11 in Weight 207 lb 3.752 oz BMI 28.9 BP 116/76 Blood Pressure Location Lt brachial Position Sitting Pulse 61 Intake Visit Reasons: ct f/u Intake Note: Raul presents in the office as a follow up for his CT scan. CC: no concerns - just here for results. Quill Buncher And Sorter Required: No Allergies cigarette smoke Allergy (Mild, Verified 07/06/25 15:33) Unknown house dust Allergy (Mild, Verified 07/06/25 15:33) unknown mold Allergy (Mild, Verified 07/06/25 15:33) Unknown pollen extracts Allergy (Mild, Verified 07/06/25 15:33) unknown HPI HPI ct f/u: Details: 54 yr old m being called for f/u RECAP: Hx of baretts EGD/[place] 05/27/24 Endoscopy Findings: gastritis probable fundic gland polyp Colonoscopy Findings: diverticulosis colon polyps internal hemorrhoids erosive ileitis Path: hyperplastic polyps, other bx from small bowel and upper GI neg INTERIM: He feels well he has no complaints he does have joint pains attributed to his work he has been avoiding nsaid for a while CT with pulm nodules but no small bowel inflammation EXAM: GENERAL: The patient is well developed and nontoxic. VITAL SIGNS:see workflow HEENT: Nonicteric sclerae, PERRLA, EOMI. Oropharynx clear. Moist mucous membranes. Conjunctivae appear well perfused. No thyroid mass. CHEST: Chest wall is nontender. HEART: Regular rate and rhythm without murmurs. LUNGS: Clear to auscultation bilaterally. ABDOMEN: Soft, positive bowel sounds, nontender, no organomegaly.no flank tenderness SKIN: No rash, no excessive bruising, petechiae, or purpura. NEUROLOGIC: Cranial nerves II-XII intact without motor/sensory deficit. Psych: normal affect A/P: 1/ [place] with ileal erosions, CT neg for inflammation PLAN: /1 check fecal lactoferrin, if pos then VCE, if neg then monitor clincially --avoid nsaids 2/ refer pulm due to exposure with asbestos in the past [facility] Medical History Animal bite of calf Hypercholesteremia Joint swelling Hypertension Surgical History Hx of colonoscopy History of esophagogastroduodenoscopy (EGD) No pertinent past surgical history Family History Father No problems noted. Mother No problems noted. Social History Household Members Other:: lives alone Alcohol intake: never Patient Tobacco Use Status: Never used Tobacco Current occupational status: unemployed Current occupation: Research Physical Exam Vital Signs: Last Vital Signs Pulse 61 07/06/25 15:31 BP 116/76 07/06/25 15:31 BMI result Body Mass Index 28.9 Assessment & Plan Assessment & Plan (1) Lung nodule: Code(s): R91.1 - Solitary pulmonary nodule Category: Medical Plan: as above Orders: Referrals Pulmonology Referral R91.1 - Solitary pulmonary nodule Coding Level of Care Code Est Pt Level 3 (31792) Diagnoses Lung nodule R91.1
[2025-07-06 15:31] VITALS: BP 116/76; PULSE 61; BMI 28.9
--- OUTSIDE RECORDS SUMMARY | 2025-07-06 19:25 | XMS_ITS | Encounter Summary ---
Author Organization [employer] Address [address] [place] [address] [facility] [place] [address] Care Team Providers Care Commercial Installer Name Role Phone Shon Sorensen MD Primary Care Prov ider Encounter Details Date Type Department Care Team (Latest Contact Info) Description 06/13/2019 Abstract [facility] CONVERSIONS Dental, Provider, DDS Social History [...] Care Team (Late st Contact Info) Description 07/14/2025 1:00 PM EDT Telemedicine [facility] MED & PEDS [address] [place] [address] Shon Sorensen MD 505 [place] [address] documented as of this encounter Visit Diagnoses Not on filedocumented in this encounter Care Teams Commercial Installer Relationship Specialty Start Date End Date Shon Sorensen MD [address] [place] [address] PCP - General Internal Medicine 01/26/20 documented as of this encounter
--- OUTSIDE RECORDS SUMMARY | 2025-07-06 19:25 | XMS_ITS | Encounter Summary ---
Author Organization [employer] Address [address] [place] [address] [address] Care Team Providers Care Boiler Coverer Name Role Phone Shon Sorensen MD Primary Care Prov ider Encounter Details Date Type Department Care Team (Late st Contact Info) Description 09/14/2022 Orders Only [facility] MED & PEDS [address] [place] [address] Anh Correa RN 505 [place] [address] Social History Tobacco Use Types Packs/Day Years [...] Info) Description 07/14/2025 1:00 PM EDT Telemedicine [facility] MED & PEDS [address] [place] [address] Shon Sorensen MD 505 [place] [address] documented as of this encounter Procedures Procedure [...] Immunoglobulin G 1018 600 - 1640 mg/dL [facility] Comment:THIS TEST WAS PERFOR MED AT:[facility] [address] [id number] MONCADA MD 05/15/2023 9:48 AM EDT 05/15/2023 2:32 PM EDT Shon Velazquez MD LAB BLOOD ORDERABL ES Final Result Performing Organization Address [facility] Co de Phone Number [facility] [address] [place] [phone] * DNA (ds) Antibody (05/15/2023 9:48 AM EDT) Pathologist [facility] Anti DNA DS Antibody <1 IU/mL [facility] Comment:IU/mL Interpretation < or = 4 Negative 5-9 Indeterminate > or = 10 PositiveTHIS TEST WAS PERFORMED AT:[facility] [address] [id number] MONCADA MD 05/15/2023 9:48 AM EDT 05/15/2023 2:32 PM EDT Shon Velazquez MD LAB BLOOD ORDERABL ES Final Result Performing Organization Address City/[facility]/ZIP Co de Phone Number [facility] [address] [place] [phone] * Hepatitis C Antibody Reflex (05/15/2023 9:48 AM EDT) Pathologist [facility] Hepatitis C Antibody Nonreactive Nonreactive [facility] Comment:Antibodies to HCV no t detected; does not exclude early acuteHCV infection. 05/15/2023 9:48 AM EDT 05/15/2023 2:32 PM EDT us Shon Velazquez MD LAB BLOOD ORDERABL ES Final Result [facility] [address] [place], [place] [phone] * (ABNORMAL) Comprehensive Metabolic Panel, Fasting (05/15/2023 9:48 AM EDT) Sodium 140 135 - 145 mmol/L [facility] Potassium 4.1 3.3 - 5.1 mmol/L [facility] Chloride 105 96 - 108 mmol/L [facility] Carbon Dioxide 27 22 - 29 mmol/L [facility] Anion Gap 12 12 - 20 [facility] Urea Nitrogen (BUN) 9 9 - 16 mg/dL [facility] Creatinine, Serum 0.95 0.5 - 1.4 mg/dL [facility] Estimated Glomerular Filt Rate >60 [facility] Comment:NOTE: For -Am erican individuals, multiply the result by 1.210.Chronic Kidney Disease: Estimated GFR < 60 mL/min/1.79e2Zkozad Kidney Disease: Estimated GFR < 15 mL/min/1.73m2 Glucose Fasting 94 60 - 99 mg/dL [facility] Calcium 9.7 8.4 - 10.2 mg/dL [facility] Bilirubin, Total 0.9 0.0 - 1.0 mg/dL [facility] Aspartate Amino Transferase 23 5 - 37 U/L [facility] Alanine Aminotransferase 46(H) 0 - 40 U/L [facility] Total Protein 7.3 6.5 - 8.0 g/dL [facility] Albumin Level 4.5 3.5 - 5.0 g/dL [facility] Alkaline Phosphatase 86 39 - 117 U/L [facility] 05/15/2023 9:48 AM EDT 05/15/2023 2:32 PM EDT us Shon Velazquez MD LAB BLOOD ORDERABL ES Final Result [facility] [address] [place] [address] [phone] documented in this encounter Visit Diagnoses Not on filedocumented in this encounter Care Teams Boiler Coverer Relationship Specialty Start Date End Date Shon Sorensen MD [address] [place] [phone] PCP - General Internal Medicine 01/26/20 documented as of this encounter
--- OUTSIDE RECORDS SUMMARY | 2025-07-06 19:25 | XMS_ITS | Encounter Summary ---
Author Organization [employer] Address [address] [place] [address] Care Team Providers Care Actuarial Analyst Name Role Phone Shon Sorensen MD Primary Care Prov ider Encounter Details Date Type Department Care Team (Late Contact Info) Description 08/22/2022 Telephone [facility] [address] [place] [address] Shon Sorensen MD [address] [place], [place] [phone] Social History Tobacco Use Types Packs/Day Years [...] Department Care Team (Late Contact Info) Description 07/14/2025 1:00 PM EDT Telemedicine [facility] MED & PEDS [address] [place] [address] Shon Sorensen MD [address] [place], [place] [phone] documented as of this encounter Visit Diagnoses Not on filedocumented in this encounter Care Teams Actuarial Analyst Relationship Specialty Start Date End Date Shon Sorensen MD [address] [place] [address] PCP - General Internal Medicine 01/26/20 documented as of this encounter
--- OUTSIDE RECORDS SUMMARY | 2025-07-06 19:25 | XMS_ITS | Clinical Summary ---
Author Organization [employer] Address [address] [place] [address] 7t [place] [address] Care Team Providers Care Mobile Marketing Specialist Name Role Phone Shon Sorensen MD Primary Care Prov ider Allergies No known active allergies Medications Proventil HFA 108 (90 Base) MCG/ACT inhaler INHALE TWO PUFFS EVERY 4 TO 6 HOURS NEEDED 6.7 g 11 4 Active atenolol (Tenormin) 50 MG tabletIndications:Jolene garcia hypertension TAKE ONE TABLET EVERY MORNING 90 tablet 2 5 Active hydroCHLOROthiazide (HYDRODiuril) 25 MG tabletIndications:Jolene garcia hypertension TAKE ONE TABLET BY MOUTH EVERY MORNING 90 tablet 3 5 Active atorvastatin (Lipitor) 10 MG tabletIndications:Mix ed hyperglyceridemia TAKE ONE TABLET BY MOUTH EVERY DAY 90 tablet 3 5 Active lisinopril 10 MG tabletIndications:Jolene garcia hypertension TAKE ONE TABLET EVERY MORNING 90 tablet 3 5 Active Asmanex, 120 Metered Doses, 220 MCG/ACT aerosol powder INHALE ONE PUFF TWICE DAILY, RINSE MOUTH AFTER USE 1 each 3 5 Active montelukast (Singulair) 10 MG tablet TAKE ONE TABLET EVERY EVENING 90 tablet 3 5 Active omeprazole (PriLOSEC) [address] capsule TAKE ONE CAPSULE EVERY DAY BEFORE A MEAL 90 capsule 3 5 Active Active Problems Problem Noted Date [...] 04/2023 Primary hypertension 05/14/2023 Assessment & Plan (04/14/2025 10:56 AM EDT): Controlled, keep low sodium diet and exercise as tolerated, keep bp log, follow up in 3 months Assessment & Plan (01/12/2025 2:26 PM EDT): [...] Encounters Date Type Department Care Team Description 06/17/2025 Telephone [facility] MED & PEDS [address] [place] [address] Shon Sorensen MD 05/12/[address] [facility] MED & PEDS [address] [place] [address] Shon Sorensen MD 04/26/[address] [facility] MED & PEDS [address] [place] [address] Shon Sorensen MD 04/14/2025 10:15 AM EDT Telemedicine [facility] MED & PEDS [address] [place] [address] Shon Sorensen MD Primary hypertension (Primary Dx) 04/14/2025 Travel 04/07/2025 Travel from Last 3 Months Social History [...] your housing situation today? I have raghu sing 04/14/[address] you li ve. Do you have problems with any of the following? None of the above 04/14/2025 Food Insecurity Answer Date Recorded Within the past 12 months, y ou worried that your food would run out before you got money to buy more: Never True 04/14/2025 Within the past 12 months,th e food you bought just didn't last and you didn't have enough money to get more: Never True Transportation Answer Date Recorded In the past 12 months, has l ack of transportation kept you from medical appts, meetings, work or from getting things needed for daily living? No 04/14/2025 Utilities Answer Date Recorded In the past 12 months, has t he electric, gas, oil or water company threatened to shut off services in your home? No 04/14/2025 Depression Answer Date Recorded Patient Health Questionnaire-2 Score 0 01/12/2025 Internet Access Answer Date Recorded Internet Access Q1 Yes 04/14/2025 Internet Access Q2 Not on file 04/14/2025 Sex and Gender Information Value Date Recorded Sex Assigned at Male 07/17/2022 10:35 AM EDT Legal Sex Male 10:35 AM EDT Gender Identity Male 07/17/2022 10:35 AM EDT Sexual Orientation Straight 07/17/2022 10 :35 AM EDT Last Filed Vital Signs Vital Sign Reading Time Taken Comments Blood Pressure 121/90 04/14/2025 10:13 AM EDT Pulse 66 02/21/2024 1:00 PM EDT Temperature 36.4 C (97.5 F) 02/21/2024 1:00 PM EDT Respiratory Rate 21 02/21/2024 1:00 PM EDT [...] Info) Description 07/14/2025 1:00 PM EDT Telemedicine [facility] [address] [place] [address] Shon Sorensen MD [address] [place] [address] Health Maintenance Due Date Last Done Comments CT Colonography 1971 FIT DNA/Cologuard 1971 FIT 1971 FOBT 1971 Sigmoidoscopy 1971 Pneumococcal Vaccine: 50+ Years (3 of 3 - PCV20 or PCV21) 2021 06/25/2013, 06/25/2013 Zoster Vaccines (1 of 2) 2021 Influenza Vaccine (#1) 2025 , 09/08/2023, 07/05/2021, Additional history exists Tobacco Screening 06/09/2025 06/09/2024 Disability Screening 10/07/2025 10/07/2024 Alcohol/Substance Use Screening 01/12/2026 01/12/2025 Depression Screening 01/12/2026 01/12/2025, 01/13/20 25 SDOH Screening 04/14/2026 04/14/2025 Colonoscopy 05/27/2029 05/27/2024 Colorectal Cancer Screening 05/27/2029 Lipid Panel 02/03/2030 02/03/2025, 1009/2023, 11/19/2023, Additional history exists HIV Screening 05/15/2033 DTaP/Tdap/Td Vaccines (3 - Td or Tdap) 01/30/2035 01/30/2025, 07/16/2013 RSV Patients and Patients Aged 60 years or older (1 - 1-dose 75+ series) 2046 Hepatitis B Vaccines Completed 10/16/2013, 07/16/2013, 06/11/2013 Hepatitis C Screening Completed 05/15/2023 COVID-19 Vaccine Completed 06/15/2024, , 12/02/2022, Additional history exists HIB Vaccines Aged Out [...] Associated Diagnosis Comments LIPID PANEL, STANDARD Routine 02/03/2025 10:04 AM EDT Primary hypertension HM COLONOSCOPY Routine 05/27/2024 HEPATITIS C ANTIBODY REFLEX Routine 05/15/2023 9:48 AM EDT from Last 3 Months or Most Recently Relevant to Health Maintenance Results * Lipid Panel, Standard (02/03/2025 10:04 AM EDT) Triglycerides 66 <150 mg/dL [facility] Comment:Desirable Triglyceri de: less than 150 mg/dLBorderline High Triglyceride 150-199 mg/dLHigh Triglyceride: 200-499 mg/dLVery High Triglyceride: greater than or equal to 5OO mg/dL Cholesterol 124 <200 mg/dL [facility] Comment:Desirable Cholestero l: less than 200 mg/dLBorderline High Cholesterol: 200-239 mg/dLHigh Cholesterol: greater than 239 mg/dL LDL Cholesterol Calculated 65 <100 mg/dL [facility] Comment:Desirable LDL: less than 100 mg/dLNear Optimal/Above Optimal LDL: 110- 129 mg/dLBorderline High LDL: 130-159 mg/dLHigh LDL: 160-189 mg/dLVery High LDL: greater than or equal to 190 mg/dL HDL Cholesterol 46 >40 mg/dL [facility] Comment:Desirable HDL: great er than 40 mg/dL Note: This HDL assay may give artificially low results in patients with liver disease. Blood Venous blood specimen / Unknown 02/03/2025 10:04 AM EDT 02/03/2025 2:14 PM EDT Shon Velazquez MD LAB BLOOD ORDERABL ES Final Result Performing Organization Address [facility] Co de Phone Number [facility] [address] [place] [address] [phone] * Colonoscopy (05/27/2024) Colonoscopy Normal Normal Narrative Milly Gomez - 05/27/2024 Colonoscopy order added Tiffanie Hopkins MD HEALTH MAINTENANCE Final Result * Hepatitis C Antibody Reflex (05/15/2023 9:48 AM EDT) Hepatitis C Antibody Nonreactive Nonreactive [facility] Comment:Antibodies to HCV no t detected; does not exclude early acuteHCV infection. 05/15/2023 9:48 AM EDT 05/15/2023 2:32 PM EDT Shon Velazquez MD LAB BLOOD ORDERABL ES Final Result Performing Organization Address City/[facility] Co de Phone Number [facility] [address] [place] [address] [phone] from Last 3 Months or Most Recently Relevant to Health Maintenance Insurance [facility] [address] Care Teams Mobile Marketing Specialist Relationship Specialty Start Date End Date AparicioShon Mckeon MD [address] [place] [address] JOSEPH Rivera [address] PCP - General Internal Medicine 01/26/20
--- OUTSIDE RECORDS SUMMARY | 2025-07-06 19:25 | XMS_ITS | Encounter Summary ---
Author Organization [employer] Address [address] [place] [address] Care Team Providers Care Electronic Imaging System Operator Name Role Phone Shon Sorensen MD Primary Care Prov ider Encounter Details Date Type Department Care Team (Late Contact Info) Description 05/30/2023 Orders Only [facility] MED & PEDS [address] [place], [place] [phone] Dorinda Kessler LPN Social History Tobacco Use [...] Info) Description 07/14/2025 1:00 PM EDT Telemedicine [facility] MED & PEDS [address] [place], [place] [phone] Shon Sorensen MD [address] [place] [address] documented as of this encounter Visit Diagnoses Not on filedocumented in this encounter Additional Health Concerns Assessment Noted Time PHQ-9 Depression Total Score: 0 05/14/20 23 1:03 PM EDT documented as of this encounter Care Teams Electronic Imaging System Operator Relationship Specialty Start Date End Date Shon Sorensen MD [address] [place] [phone] PCP - General Internal Medicine 01/26/20 documented as of this encounter
--- OUTSIDE RECORDS SUMMARY | 2025-07-06 19:25 | XMS_ITS | Encounter Summary ---
Author Organization [employer] Address [address] [facility] 7 [place] [address] Care Team Providers Care Heater Room Helper Name Role Phone Shon Sorensen MD Primary Care Prov ider Reason for Visit * Reason Comments Med Refill Encounter Details Date Type Department Care Team ([facility] st Contact Info) Description 12/03/2023 Refill [facility] MED & PEDS [address] [place], [place] [phone] Shon Sorensen MD [address] [place] [address] Social History Tobacco Use Types Packs/Day Years [...] Info) Description 07/14/2025 1:00 PM EDT Telemedicine [facility] MED & PEDS [address] [place] [address] Shon Sorensen MD [address] [place] [address] documented as of this encounter Visit Diagnoses Not on filedocumented in this encounter Additional Health Concerns Assessment Noted Time PHQ-9 Depression Total Score: 0 05/14/20 23 1:03 PM EDT documented as of this encounter Care Teams Heater Room Helper Relationship Specialty Start Date End Date Shon Sorensen MD [address] [place] [address] PCP - General Internal Medicine 01/26/20 documented as of this encounter
== END 2025-07-06 16:21 | disposition home or self-care (01) ==
LOC: HO.HGI 15:12
PROVIDERS: PCP Internal Medicine; Visit Provider Internal Medicine Gastroenterology
DX: R91.1 Solitary pulmonary nodule (principal)
CPT/HCPCS: 99213

== ENCOUNTER → 2025-07-06 15:12 | Outpatient (BNVA) | payer MEDICAID, SELFPAY | PROVIDERS: PCP Internal Medicine; Visit Provider Internal Medicine Gastroenterology | DX: R91.1 Solitary pulmonary nodule (principal) | CPT/HCPCS: 99212 ==

== ENCOUNTER 2025-07-20 12:57 | Outpatient (REF) | payer MEDICAID, SELFPAY ==
--- NOTE | ~2025-07-20 | US_ITS ---
EXAMINATION: US RETROPERITONEAL LIMITED (RENAL ONLY) CLINICAL INFORMATION: Bilateral kidney stones. Renal cyst. COMPARISON: 11/13/2023. CT abdomen and pelvis 06/23/2024, 03/16/2025. TECHNIQUE: Real-time imaging of the kidneys. FINDINGS: RIGHT KIDNEY: 10.2 x 5.6 x 5.3 cm (SAG x AP x TRV). The kidney is normal in size, contour, and echogenicity. Renal cortical thickness is normal. No calculi or suspicious focal parenchymal lesions. No hydronephrosis. There is a tiny rim calcified small cyst measuring 4 x 5 x 6 mm in the lower pole, unchanged from the most recent CT exam of 03/16/2025. This is significantly smaller than 11/13/2023. This finding is benign. LEFT KIDNEY: 12.9 x 5.4 x 6.1 cm (SAG x AP x TRV). The kidney is normal in size, contour, and echogenicity. Renal cortical thickness is normal. No calculi or suspicious focal parenchymal lesions. No hydronephrosis. US/US renal BI IMPRESSION: 1. Minimally complicated but benign cyst in the lower pole of the right kidney measuring up to 6 mm. 2. Otherwise, normal renal ultrasound. Electronically signed by: Brendan Reyna MD 07/20/2025 01:34 PM TAO
== END 2025-07-20 12:58 | disposition home or self-care (01) ==
LOC: HO.HMGCX 12:57
PROVIDERS: PCP Internal Medicine; Visit Provider Urology
DX: N20.0 Calculus of kidney (principal); N28.1 Cyst of kidney, acquired
CPT/HCPCS: 76775

== ENCOUNTER → 2025-07-20 13:02 | Outpatient (BNV) | payer MEDICAID, SELFPAY | PROVIDERS: PCP Internal Medicine; Visit Provider Radiology Diagnostic Radiology | DX: N20.0 Calculus of kidney (principal); N28.1 Cyst of kidney, acquired | CPT/HCPCS: 76775 ==

== ENCOUNTER 2025-08-03 08:35 | Outpatient (REF) | payer MEDICAID, SELFPAY ==
[2025-08-03 14:33] LABS: Alanine Aminotransferase 29 U/L (0-40); Albumin Level 4.9 g/dL (3.5-5.0); Alkaline Phosphatase 68 U/L (39-117); Anion Gap 12 (12-20); Aspartate Amino Transferase 31 U/L (5-37); Blood Urea Nitrogen 13 mg/dL (9-16); Calcium 9.4 mg/dL (8.4-10.2); Carbon Dioxide 29 mmol/L (22-29); Chloride 101 mmol/L (96-108); Cholesterol 131 mg/dL (<200); Estimated Glomerular Filt Rate > 60; HDL Cholesterol 47 mg/dL (>40); Potassium 4.0 mmol/L (3.3-5.1); Sodium 138 mmol/L (135-145); Total Protein 7.3 g/dL (6.5-8.0); Triglycerides 126 mg/dL (<150)
[2025-08-03 14:50] LABS: PSA,Total (Free>4and<10) 2.23 ng/mL (0.00-4.00)
== END 2025-08-03 08:36 | disposition home or self-care (01) ==
LOC: HO.CHCLDS 08:35
PROVIDERS: PCP Internal Medicine; Referring Provider Urology; Visit Provider Internal Medicine
DX: I10 Essential (primary) hypertension (principal); R97.20 Elevated prostate specific antigen [PSA]; N40.0 Benign prostatic hyperplasia without lower urinary tract symptoms
CPT/HCPCS: 36415; 80053; 80061; 84153

== ENCOUNTER 2025-08-17 16:01 | Outpatient (AMB) | payer MEDICAID, SELFPAY ==
--- NOTE | 2025-08-17 15:58 | A.OFFVIS_ITS ---
Intake Visit Reasons: 7m/US/PSA (set) Intake Note: Patient is present today via telehealth for 7m follow up/US/PSA * 07/20 Renal US * 08/03 Total PSA:2.23 Urology Med:None Antibiotic Allergy:None Blood Thinner: None Nonprofit Financial Controller Required: No Allergies cigarette smoke Allergy (Mild, Verified 10/06/25 09:01) Unknown house dust Allergy (Mild, Verified 10/06/25 09:01) unknown mold Allergy (Mild, Verified 10/06/25 09:01) Unknown pollen extracts Allergy (Mild, Verified 10/06/25 09:01) unknown HPI Comments Details: 08/17/25--Mark is followed for kidney stones and BPH he presents for telehealth follow-up he had a renal ultrasound on 07/20/2025 no recurrent renal calculi a tiny calcified right kidney cyst with benign features he had a PSA done on 08/03/2025 which is 2.23 History of Present Illness The patient is a 55 year old individual followed for kidney stones and Benign Prostatic Hyperplasia (BPH). A renal ultrasound on 07/20/25 showed no evidence of recurrent renal calculi and noted a stable, tiny calcified cyst in the right kidney with benign features. The patient reports having reduced intake of a calcium powder supplement by half to prevent further stone formation. Regarding the BPH, the patient stopped taking finasteride shortly after the last visit and reports urinating well. A PSA test performed on 08/03/25 was normal at 2.23. Results - Renal Ultrasound (07/20/25): No recurrent renal calculi; a tiny, stable, calcified right kidney cyst with benign features was noted. - Labs: - PSA (08/03/25): 2.23. Plan 1. Nephrolithiasis - The patient's recent renal ultrasound showed no new kidney stones. Continue monitoring with a repeat renal ultrasound in one year. 2. Benign Prostatic Hyperplasia (Bph) - The patient has discontinued finasteride and reports satisfactory urinary function. - The recent PSA level of 2.23 is normal. - A follow-up visit in the office is planned for next year to include PSA blood work, a urine check, and a bladder scan to ensure complete bladder emptying. 3. Right Kidney Cyst - The tiny, stable, calcified cyst in the right kidney has benign features 01/12/25--Raul is followed for kidney stones and BPH completed a 24 hour urine collection. Discussed 24 hour urine results collected:10/22/24 Total volume 2.59 L, Calcium 221 mg; Oxalate 33 mg, Citrate 472 mg, Sodium 165. I have discussed diet modification to decrease risk of forming more kidney stones. I have discussed low oxalate diet and specific foods to avoid including certain green leafy vegetables, chocalate, nuts, tea, beets, rubarb; low sodium, decreased use of animal protein and the importance of adding lemon to water to increase citrate in the diet. In regards to his BPH symptoms, he states he voiding well. The patient requests to discontinue finasteride. Discussed [id number] saw palmetto as an option. Plan follow-up in 9 months with renal ultrasound and PSA. 09/15/24--Raul presents for follow-up. 54-year-old male followed for kidney stones and BPH. He is currently prescribed finasteride 5 mg daily. He had a renal ultrasound done in 11/06/2023 that noted a 1.9 cm complex cyst. I have discussed follow-up CT scan renal mass protocol performed on 06/23/24. No enhancing suspicious renal masses. Bosniak type I simple cysts notes, bilateral small renal calculi. The patient has not had history of kidney stones in the past. Discussed 24 hour urine. PSA discussed 06/17/2024--1.43. Discuss discontinue finasteride on follow-up. 01/21/2024--Raul is evaluated via tele video. He was last seen in the office 10/24/2023 for elevated PSA and enlarged prostate. He is prescribed finasteride. He was sent for renal ultrasound. He states that he is urinating well denies dysuria or gross hematuria. I have reviewed the kidney ultrasound results there is a 1.9 cm complex cyst in the right kidney. I have discussed follow-up evaluation with CT abdomen renal protocol in 6 months. At time of follow-up will also recheck PSA. 10/24/2023--Raul is a 53 year old male who is here for evaluation for PSA. He is here today with repeat PSA to discuss results.PSA was drawn on 10/15/2023--results 2.22 ng/mL. The patient states that his primary care physician started him on finasteride. He states he has noticed improvement in urinary flow since being on the finasteride and he gets up less at night. I w ill continue the finasteride prescription. Ultrasound retroperitoneum, prostate measurement requested. Telehealth to discuss ultrasound results. Monitor PSA. 05/09/23--PSA---3.95 ng/mL. 09/12/23-- prostate exam- enlarged, smooth, no suspicious nodules palpated [facility] Medical History (Updated 10/06/25 @ 09:10 by Jasvir Olivares MD) Pulmonary nodules Animal bite of calf Hypercholesteremia Joint swelling Hypertension Surgical History Hx of colonoscopy History of esophagogastroduodenoscopy (EGD) No pertinent past surgical history Family History Father No problems noted. Mother No problems noted. 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 All systems reviewed & are unremarkable except as noted in HPI and below Reports no additional complaints Eyes Reports no additional complaints ENT Reports no additional complaints Card Reports no additional complaints Resp Reports no additional complaints GI Reports no additional complaints Reports as per HPI Musc Reports no additional complaints Skin/Breast Reports system reviewed and no additional complaints, except as documented Neuro Reports no additional complaints Psych Reports no additional complaints Endo Reports no additional complaints Hakeem/Lymph Reports no additional complaints Aller/Immun Reports no additional complaints Telehealth Telehealth Telehealth Platform: Telephone Location of provider rendering services: practice address Location of patient: address on file Patient Identification confirmed using: Name, : Yes Telehealth method: voice only Patient verbally consented to treatment: Yes Patient verbally consented to billing insurance company: Yes Patient informed of any privacy concerns related to visit: Yes Minutes spent on Phone/Video with Pt.: 16 Assessment & Plan Assessment & Plan (1) Elevated PSA: Code(s): R97.20 - Elevated prostate specific antigen [PSA] Category: Medical (2) BPH loc w urin obs/LUTS: Code(s): N40.1 - Benign prostatic hyperplasia with lower urinary tract symptoms Category: Medical (3) Renal cyst: Code(s): N28.1 - Cyst of kidney, acquired Category: Medical (4) History of kidney stones: Code(s): Z87.442 - Personal history of urinary calculi Category: Medical Plan Plan 1. Nephrolithiasis - The patient's recent renal ultrasound showed no new kidney stones. Continue monitoring with a repeat renal ultrasound in one year. 2. Benign Prostatic Hyperplasia (Bph) - The patient has discontinued finasteride and reports satisfactory urinary function. - The recent PSA level of 2.23 is normal. - A follow-up visit in the office is planned for next year to include PSA blood work, a urine check, and a bladder scan to ensure complete bladder emptying. 3. Right Kidney Cyst - The tiny, stable, calcified cyst in the right kidney has benign features Patient Instructions: The patient had an opportunity to ask questions regarding treatment plan. The patient expressed understanding and agreement with the above treatment plan. The patient is aware they should contact our office by phone for worsening of their current condition or the appearance of new symptoms. Compliance is encouraged with any medications and followup testing that is ordered. It is a privilege to be allowed the opportunity to participate in the urologic care of your patient. If you have any questions or concerns regarding treatment for the above conditions please do not hesitate to contact me. The office telephone contact is [phone]. This note is constructed in part using voice recognition software. While every effort has been made to ensure accuracy director dermatology errors may have been included. Yours sincerely, Mariana Bazan MD Scribe Plan - Not visible on output: Patient was informed and verbally consented to the use of an ambient scribe for clinic note documentation during this visit. Coding Level of Care Code Tele Est Pt Level 4 (08326) Diagnoses Elevated PSA R97.20 BPH loc w urin obs/LUTS N40.1 Renal cyst N28.1 History of kidney stones Z87.442
--- OUTSIDE RECORDS SUMMARY | 2025-08-17 18:37 | XMS_ITS | Encounter Summary ---
Author Organization [employer] Address [address] [place] [address] 7 [place] [address] Care Team Providers Care Cargo Services Coordinator Name Role Phone Shon Sorensen MD Primary Care Prov ider Encounter Details Date Type Department Care Team (Late st Contact Info) Description 05/30/2023 Orders Only [facility] CHC MED & PEDS [address] [place] [address] Dorinda Kessler LPN Social History Tobacco Use [...] as of this encounter Plan of Treatment Not on file documented as of this encounter Visit Diagnoses Not on filedocumented in this encounter Additional Health Concerns Assessment Noted Time PHQ-9 Depression Total Score: 0 05/14/20 23 1:03 PM EDT documented as of this encounter Care Teams Cargo Services Coordinator Relationship Specialty Start Date End Date Shon Sorensen MD [address] [place] [address] PCP - General Internal Medicine 01/26/20 documented as of this encounter
--- OUTSIDE RECORDS SUMMARY | 2025-08-17 18:37 | XMS_ITS | Encounter Summary ---
Author Organization [employer] Address [address] [place] [address] Care Team Providers Care Operating Engineer Name Role Phone Shon Sorensen MD Primary Care Prov ider Encounter Details Date Type Department Care Team ([facility] st Contact Info) Description 09/14/2022 Orders Only [facility] CHC MED & PEDS [address] [place], [place] [phone] Anh Correa, RN [address] [place] [address] Social History Tobacco Use Types Packs/Day Years [...] on file documented as of this encounter Procedures Procedure [...] Immunoglobulin G 1018 600 - 1640 mg/dL [facility] Comment:THIS TEST WAS PERFOR MED AT:[facility] [place] [id number] MONCADA MD 05/15/2023 9:48 AM EDT 05/15/2023 2:32 PM EDT Shon Velazquez MD LAB BLOOD ORDERABL ES Final Result Performing Organization Address [facility] de Phone Number [facility] [address] [place] [phone] * DNA (ds) Antibody (05/15/2023 9:48 AM EDT) Pathologist [facility] Anti DNA DS Antibody <1 IU/mL [facility] Comment:IU/mL Interpretation < or = 4 Negative 5-9 Indeterminate > or = 10 PositiveTHIS TEST WAS PERFORMED AT:[facility] [address] [id number] MONCADA MD 05/15/2023 9:48 AM EDT 05/15/2023 2:32 PM EDT us Shon Velazquez MD LAB BLOOD ORDERABL ES Final Result Performing Organization Address [facility] de Phone Number [facility] [address] [place] [phone] * Hepatitis C Antibody Reflex (05/15/2023 9:48 AM EDT) Hepatitis C Antibody Nonreactive Nonreactive [facility] Comment:Antibodies to HCV no t detected; does not exclude early acuteHCV infection. 05/15/2023 9:48 AM EDT 05/15/2023 2:32 PM EDT Shon Velazquez MD LAB BLOOD ORDERABL ES Final Result Performing Organization Address [facility]/ZIP Co de Phone Number [facility] [address] [place] [phone] * (ABNORMAL) Comprehensive Metabolic Panel, Fasting (05/15/2023 9:48 AM EDT) Sodium 140 135 - 145 mmol/L [facility] Potassium 4.1 3.3 - 5.1 mmol/L [facility] Chloride 105 96 - 108 mmol/L [facility] Carbon Dioxide 27 22 - 29 mmol/L [facility] Anion Gap 12 12 - 20 [facility] Urea Nitrogen (BUN) 9 9 - 16 mg/dL [facility] Creatinine, Serum 0.95 0.5 - 1.4 mg/dL [facility] Estimated Glomerular Filt Rate >60 [facility] Comment:NOTE: For -Am erican individuals, multiply the result by 1.210.Chronic Kidney Disease: Estimated GFR < 60 mL/min/1.06y3Gxgctz Kidney Disease: Estimated GFR < 15 mL/min/1.73m2 Glucose Fasting 94 60 - 99 mg/dL [facility] Calcium 9.7 8.4 - 10.2 mg/dL [facility] Bilirubin, Total 0.9 0.0 - 1.0 mg/dL [facility] Aspartate Amino Transferase 23 5 - 37 U/L [facility] Alanine Aminotransferase 46(H) 0 - 40 U/L [facility] Total Protein 7.3 6.5 - 8.0 g/dL [facility] Albumin Level 4.5 3.5 - 5.0 g/dL [facility] Alkaline Phosphatase 86 39 - 117 U/L [facility] 05/15/2023 9:48 AM EDT 05/15/2023 2:32 PM EDT us Shon Velazquez MD LAB BLOOD ORDERABL ES Final Result Performing Organization Address [facility]/ZIP Co de Phone Number [facility] [address] [place] [phone] documented in this encounter Visit Diagnoses Not on filedocumented in this encounter Care Teams Operating Engineer Relationship Specialty Start Date End Date AparicioShon Pimentel MD [address] [place] [phone] PCP - General Internal Medicine 01/26/20 documented as of this encounter
--- OUTSIDE RECORDS SUMMARY | 2025-08-17 18:37 | XMS_ITS | Encounter Summary ---
Author Organization [employer] Address [address] [facility] [address] [facility] 7 [place] [address] Care Team Providers Care Deputy Grand Jury Name Role Phone Shon Sorensen MD Primary Care Prov ider Reason for Visit * Reason Comments Med Refill Encounter Details Date Type Department Care Team ([facility] st Contact Info) Description 12/03/2023 Refill [facility] CHC MED & PEDS [address] [place], [place] [phone] Shon Sorensen MD [address] [place] [address] Social History Tobacco Use Types Packs/Day Years [...] documented as of this encounter Care Teams Deputy Grand Jury Relationship Specialty Start Date End Date Shon Sorensen MD [address] [place] [address] PCP - General Internal Medicine 01/26/20 documented as of this encounter
--- OUTSIDE RECORDS SUMMARY | 2025-08-17 18:37 | XMS_ITS | Encounter Summary ---
Author Organization [employer] Address [address] [place] [address] [address] [place] [address] Care Team Providers Care Fixed Assets Accountant Name Role Phone Shon Sornesen MD Primary Care Prov ider Encounter Details Date Type Department Care Team (Latest Contact Info) Description 06/13/2019 Abstract [facility] CONVERSIONS Dental, Provider, DDS Social [...] on filedocumented in this encounter Care Teams Fixed Assets Accountant Relationship Specialty Start Date End Date Shon Sorensen MD [address] [place] [phone] PCP - General Internal Medicine 01/26/20 documented as of this encounter
--- OUTSIDE RECORDS SUMMARY | 2025-08-17 18:37 | XMS_ITS | Encounter Summary ---
Author Organization [employer] Address [address] [place] [address] 7 [place] [address] Care Team Providers Care Shuttlecock Feather Trimmer Name Role Phone Shon Sorensen MD Primary Care Prov ider Encounter Details Date Type Department Care Team (Late st Contact Info) Description 08/22/2022 Telephone [facility] MEDICINE [address] [place], [place] [phone] Shon Sorensen MD [address] [place] [address] Social History Tobacco Use Types Packs/Day Years [...] on filedocumented in this encounter Care Teams Shuttlecock Feather Trimmer Relationship Specialty Start Date End Date Shon Sorensen MD [address] [place] [address] PCP - General Internal Medicine 01/26/20 documented as of this encounter
--- OUTSIDE RECORDS SUMMARY | 2025-08-17 18:37 | XMS_ITS | Clinical Summary ---
Author Organization [employer] Address [address] [place] [address] [address] [place] [address] Care Team Providers Care Agricultural Chemist Name Role Phone Shon Sorensen MD Primary [...] BY MOUTH EVERY MORNING 90 tablet 3 08/11/2025 3:11 PM EST 5 Active atorvastatin (Lipitor) 10 MG tabletIndications:Mix [...] Active Problems Problem Noted Date Diagnosed Date Mild intermittent asthma without complication Mixed hyperlipidemia 08/16/2023 Assessment & Plan (07/14/2025 1:21 PM EDT): On statin therapy, new labs will be ordered for guidance Assessment & Plan (01/12/2025 2:27 PM EDT): On statin therapy, new labs ordered for guidance of therapy Assessment & Plan (10/14/2024 11:00 AM EST): Controlled, continue statin therapy, encouraged weight loss/exercise, follow up in 3 months Assessment & Plan (08/16/2023 3:18 PM EST): On atorvastatin, no changes will be made, last labs don on 04/2023 Primary hypertension 05/14/2023 Assessment & Plan (07/14/2025 1:21 PM EDT): Controlled, keep low sodium diet and exercise as tolerated, keep blood pressure log, follow up in 3 months Assessment & Plan (04/14/2025 10:56 AM EDT): [...] Encounters Date Type Department Care Team Description 08/03/2025 Orders Only GENERIC EXTERNAL DATA DEPARTMENT Provider, Generic External Data 07/20/2025 Orders Only [facility] External Provider, [facility] 07/14/2025 1:00 PM EDT Telemedicine [facility] [address] [place] [address] Shon Sorensen MD Primary hypertension (Primary Dx); Mild intermittent asthma without complication; Mixed hyperlipidemia 07/14/2025 Travel 07/13/2025 Telephone [facility] [address] [place] [phone] Shon Sorensen MD Chart Prep 07/07/2025 Travel 06/17/2025 Telephone [facility] [address] [place] [address] Shon Sorensen MD from Last 3 Months Immunizations Immunization Administration Dates Next Due Hep B, Unspecified 10/16/2013,07/16/2013 Hep B, adult 06/11/2013 Influenza Injectable Quadriv alant Preservative Free IIV4 MDCK 10/17/2019 Influenza injectable quadriv alent preservative free 09/08/2023,07/05/2021 Influenza, Injectable, MDCK, preservative free 06/15/2024 MMR 07/16/2013 Pneumococcal Conjugate PCV 13 06/25/2013 Pneumococcal Polysaccharide PPSV23 06/25/2013 Rabies - IM Fibroblast Culture ,02/06/2025,02/02/2025,01/30 Tdap 01/30/2025,07/16/2013 Social History Tobacco Use Types Packs/Day Years [...] housing situation today? I have raghu biswas 04/14/[address] you li [...] Sign Reading Time Taken Comments Blood Pressure 124/83 07/14/2025 1:15 PM EDT Pulse 66 02/21/2024 1:00 PM [...] 02/21/2024 1:00 PM EDT Plan of Treatment Health Maintenance Due Date Last Done Comments CT Colonography 1971 FIT DNA/Cologuard 1971 FIT 1971 FOBT 1970 Sigmoidoscopy 1971 Hepatitis A Vaccines (1 of 2 - Risk 2-dose series) 1990 Pneumococcal Vaccine: 50+ Years (3 of 3 - PCV20 or PCV21) 2021 06/25/2013, 06/25/2013 RSV Patients and Patients Aged 60 years or older (1 - Risk 50-74 years 1-dose series) 2021 Zoster Vaccines (1 of 2) 2021 COVID-19 Vaccine ( season) 2025 06/15/2024, 09/08/2023, 12/02/2022, Additional history exists Influenza Vaccine (#1) 2025 , 09/08/2023, 07/05/2021, Additional history exists Tobacco Screening 06/09/2025 06/09/2024 Disability Screening 10/07/2025 10/07/2024 Alcohol/Substance Use Screening 01/12/2026 01/12/2025 Depression Screening 01/12/2026 01/12/2025, 01/13/20 SDOH Screening 04/14/2026 04/14/2025 Colonoscopy 05/27/2029 05/27/2024, 05/27/2024 Colorectal Cancer Screening 05/27/2029 Lipid Panel 08/03/2030 08/03/2025, 05/, 06/17/2024, Additional history exists HIV Screening 05/15/2033 DTaP/Tdap/Td Vaccines (3 - Td or Tdap) 01/30/2035 01/30/2025, 07/16/2013 Hepatitis B Vaccines Completed 10/16/2013, 07/16/2013, 06/11/2013 Hepatitis C Screening Completed 05/15/2023 HIB Vaccines Aged Out No longer eligi [...] Procedure Name Priority Date/Time Associated Diagnosis Comments PSA, TOTAL WITH REFLEX TO PSA, FREE Routine 08/03/2025 8:38 AM EST LIPID PANEL, STANDARD Routine 08/03/2025 8:38 AM EST Primary hypertension COMPREHENSIVE METABOLIC PANEL Routine 08/03/2025 8:38 AM EST Primary hypertension US RENAL COMPLETE Routine 07/20/2025 1:0 6 PM EST COLONOSCOPY Routine 05/27/2024 HEPATITIS C ANTIBODY REFLEX Routine 05/15/2023 9:48 AM EDT from Last 3 Months or Most Recently Relevant to Health Maintenance Results * PSA, Total With Reflex to PSA, Free (08/03/2025 8:38 AM EST) PSA,Total (Free>4and<10) 2.23 0.00 - 4.00 ng/mL [facility] Comment:A Free PSA was not p erformed: The percentage of Free PSA can be used to enhance the differentiation of prostate cancer from benign prostatic disease in subjects whose PSA levels are between 4.0 and 10.0 ng/mL. For subjects whose PSA levels are below 4.0 or above 10.0 ng/mL, the risk of prostate cancer is determined on the basis of the PSA alone. Therefore the % Free PSA is recommended only for those subjects whose PSA levels are between 4.0 and 10.0 ng/mL.PSA methodology: CodeGuard Alinity i ChemiluminescentMicroparticle Immunoassay (CMIA) 08/03/2025 8:38 AM EST 08/03/2025 2:04 PM EST us Generic External Data Provider LAB BLOOD ORDERAB LES Final Result [facility] [address] [place] [phone] * Lipid Panel, Standard (08/03/2025 8:38 AM EST) Triglycerides 126 <150 mg/dL [facility] Comment:Desirable Triglyceri de: less than 150 mg/dLBorderline High Triglyceride 150-199 mg/dLHigh Triglyceride: 200-499 mg/dLVery High Triglyceride: greater than or equal to 5OO mg/dL Cholesterol 131 <200 mg/dL [facility] Comment:Desirable Cholestero l: less than 200 mg/dLBorderline High Cholesterol: 200-239 mg/dLHigh Cholesterol: greater than 239 mg/dL LDL Cholesterol Calculated 59 <100 mg/dL [facility] Comment:Desirable LDL: less than 100 mg/dLNear Optimal/Above Optimal LDL: 110- 129 mg/dLBorderline High LDL: 130-159 mg/dLHigh LDL: 160-189 mg/dLVery High LDL: greater than or equal to 190 mg/dL HDL Cholesterol 47 >40 mg/dL [facility] Comment:Desirable HDL: great er than 40 mg/dL Note: This HDL assay may give artificially low results in patients with liver disease. Blood Venous blood specimen / Unknown 08/03/2025 8:38 AM EST 08/03/2025 2:04 PM EST us Shon Velazquez MD LAB BLOOD ORDERABL ES Final Result [facility] [address] [place], [place] [phone] * (ABNORMAL) Comprehensive Metabolic Panel (08/03/2025 8:38 AM EST) Sodium 138 135 - 145 mmol/L [facility] Potassium 4.0 3.3 - 5.1 mmol/L [facility] Chloride 101 96 - 108 mmol/L [facility] Carbon Dioxide 29 22 - 29 mmol/L [facility] Anion Gap 12 12 - 20 [facility] Urea Nitrogen (BUN) 13 9 - 16 mg/dL [facility] Creatinine, Serum 0.92 0.5 - 1.4 mg/dL [facility] Estimated Glomerular Filt Rate >60 [facility] Comment:Chronic Kidney Disea se: Estimated GFR < 60 mL/min/[id number] Kidney Disease: Estimated GFR < 15 mL/min/1.73m2 Glucose 100 60 - 115 mg/dL [facility] Calcium 9.4 8.4 - 10.2 mg/dL [facility] Bilirubin, Total 1.3(H) 0.0 - 1.0 mg/dL [facility] Aspartate Amino Transferase 31 5 - 37 U/L [facility] Alanine Aminotransferase 29 0 - 40 U/L [facility] Total Protein 7.3 6.5 - 8.0 g/dL [facility] Albumin Level 4.9 3.5 - 5.0 g/dL [facility] Alkaline Phosphatase 68 39 - 117 U/L [facility] Blood Venous blood specimen / Unknown 08/03/2025 8:38 AM EST 08/03/2025 2:04 PM EST Shon Velazquez MD LAB BLOOD ORDERABL ES Final Result [facility] [address] [place] [phone] * US Renal Complete (07/20/2025 1:06 PM EST) Anatomical Region Laterality Modality Kidney Ultrasound 07/20/2025 1:06 PM EST Narrative 07/20/2025 1:37 PM EST [facility] [place] [address] Ultrasound Report Signed Patient: Raul Sigala MR#: [id number] : 1970 Acct:[id number] Age/Sex: 54 / M ADM Date: 07/20/25 Loc: HO.HMGCX Attending Dr: Mariana Bazan MD Ordering Physician: Mariana Baazn MD Date of Service: 07/20/25 Procedure(s): US renal BI Accession Number(s): [id number] cc: Mariana Bazan MD; Shon Sorensen MD Reason for Exam: N20.0 - Calculus of kidney EXAMINATION: US RETROPERITONEAL LIMITED (RENAL ONLY) CLINICAL INFORMATION: Bilateral kidney stones. Renal cyst. COMPARISON: 11/13/2023. CT abdomen and pelvis 06/23/2024, 03/16/2025. TECHNIQUE: Real-time imaging of the kidneys. FINDINGS: RIGHT KIDNEY: 10.2 x 5.6 x 5.3 cm (SAG x AP x TRV). The kidney is normal in size, contour, and echogenicity. Renal cortical thickness is normal. No calculi or suspicious focal parenchymal lesions. No hydronephrosis. There is a tiny rim calcified small cyst measuring 4 x 5 x 6 mm in the lower pole, unchanged from the most recent CT exam of 03/16/2025. This is significantly smaller than 11/13/2023. This finding is benign. LEFT KIDNEY: 12.9 x 5.4 x 6.1 cm (SAG x AP x TRV). The kidney is normal in size, contour, and echogenicity. Renal cortical thickness is normal. No calculi or suspicious focal parenchymal lesions. No hydronephrosis. US/US renal BI IMPRESSION: 1. Minimally complicated but benign cyst in the lower pole of the right kidney measuring up to 6 mm. 2. Otherwise, normal renal ultrasound. Electronically signed by: Brendan Reyna MD 07/20/2025 01:34 PM EST Dictated By: Brendan Reyna MD Signed By: <Electronically signed by Brendan Reyna MD in OV> 07/20/25 1334 DD/ 1306 TD/TT: 07/20/25 1321 Concessionist: Procedure Note Donotuseinterpreter, Image - 07/20/2025 [facility] [address] [place] [address] [place] [address] Ultrasound Report Signed Patient: Raul Sigala WMR#: [id number] : 1970Acct:[id number] Age/Sex: 54 / MADM Date: 07/20/25 Loc: HO.HMGCX Attending Dr: Mariana Bazan MD Ordering Physician: Mariana Bazan MD Date of Service: 07/20/25 Procedure(s): US renal BI Accession Number(s): [id number] cc: Mariana Bazan MD; Shon Sorensen MD Reason for Exam: N20.0 - Calculus of kidney EXAMINATION: US RETROPERITONEAL LIMITED (RENAL ONLY) CLINICAL INFORMATION: Bilateral kidney stones. Renal cyst. COMPARISON: 11/13/2023. CT abdomen and pelvis 06/23/2024, 03/16/2025. TECHNIQUE: Real-time imaging of the kidneys. FINDINGS: RIGHT KIDNEY: 10.2 x 5.6 x 5.3 cm (SAG x AP x TRV). The kidney is normal in size, contour, and echogenicity. Renal cortical thickness is normal. No calculi or suspicious focal parenchymal lesions. No hydronephrosis. There is a tiny rim calcified small cyst measuring 4 x 5 x 6 mm in the lower pole, unchanged from the most recent CT exam of 03/16/2025. This is significantly smaller than 11/13/2023. This finding is benign. LEFT KIDNEY: 12.9 x 5.4 x 6.1 cm (SAG x AP x TRV). The kidney is normal in size, contour, and echogenicity. Renal cortical thickness is normal. No calculi or suspicious focal parenchymal lesions. No hydronephrosis. US/US renal BI IMPRESSION: 1. Minimally complicated but benign cyst in the lower pole of the right kidney measuring up to 6 mm. 2. Otherwise, normal renal ultrasound. Electronically signed by: Brendan Reyna MD 07/20/2025 01:34 PM EST Dictated By: Brendan Reyna MD Signed By: <Electronically signed by Brendan Reyna MD in OV> 07/20/25 1334 DD/ 1306 TD/TT: 07/20/25 1321 Concessionist: [facility] External Provider IMG US PROCEDURES Edited Result - Final * Colonoscopy (05/27/2024) Colonoscopy Normal Normal Narrative Milly Gomez - 05/27/2024 Colonoscopy order added Historical Provider HEALTH MAINTENANCE Final Result * Hepatitis C Antibody Reflex (05/15/2023 9:48 AM EDT) Hepatitis C Antibody Nonreactive Nonreactive [facility] Comment:Antibodies to HCV no t detected; does not exclude early acuteHCV infection. 05/15/2023 9:48 AM EDT 05/15/2023 2:32 PM EDT Shon Velazquez MD LAB BLOOD ORDERABL ES Final Result [facility] [address] [place] [phone] from Last 3 Months or Most Recently Relevant to Health Maintenance Insurance [facility] C3 Care Teams Agricultural Chemist Relationship Specialty Start Date End Date Shon Sorensen MD [address] [place] [address] JOSEPH Rivera [id number] PCP - General Internal Medicine 01/26/20
== END 2025-08-17 16:39 | disposition home or self-care (01) ==
LOC: HO.HUSH 16:01
PROVIDERS: PCP Internal Medicine; Visit Provider Urology
DX: R97.20 Elevated prostate specific antigen [PSA] (principal); N40.1 Benign prostatic hyperplasia with lower urinary tract symptoms; N28.1 Cyst of kidney, acquired; Z87.442 Personal history of urinary calculi
CPT/HCPCS: 99214

== ENCOUNTER 2025-08-24 11:39 | Outpatient (REF) | payer MEDICAID, SELFPAY | END 2025-08-24 11:40 | disposition home or self-care (01) | LOC: HO.CHCLNP 11:39 | PROVIDERS: Visit Provider Internal Medicine Gastroenterology | DX: K51.50 Left sided colitis without complications (principal) | CPT/HCPCS: 83631 ==